=== PATIENT | male | born 1950 | race Caucasian/White ===

== ENCOUNTER → 2020-02-17 09:24 | Outpatient (REF) | payer MEDICARE, OTHER, SELFPAY ==
--- NOTE | 2020-02-17 | NM_ITS ---
Exercise Myocardial perfusion study Indication: Chest pain with multiple risk factors to evaluate for myocardial ischemia Technique: The patient was brought in for an exercise perfusion study on 02/17/2020. Patient performed exercise as per [facility] protocol and was injected 30 mCi of sestamibi was given intravenously one target HR was achieved. Images were obtained using the SPECT gamma camera interlaced with the gating device. Images were obtained in supine position. Resting perfusion study was performed on 02/21/2020. Patient was administered 30 mCi of sestamibi intravenously at rest. Images were then obtained in supine position. Images obtained with and without CT attenuation. Total DLP 65MGY-CM. Images were processed with the software and compared side to side in short axis, horizontal long axis and vertical long axis views. Findings: The stress perfusion study showed non attenuated images show severely reduced uptake in the distal lateral and apical wall of the LV myocardium as well as mildly reduced uptake in the inferior wall of the LV myocardium. Remainder of the LV myocardium is normally perfused. Attenuation corrected images show severely reduced uptake in the apex and distal lateral wall of the LV myocardium. Remainder of the LV myocardium is normally perfused.. The gated study shows normal LV systolic function with calculated LVEF of 54%. LV cavity is mildly to moderately dilated in size. The gated study shows normal wall thickening and contraction of all segments. There is mild transient ischemic dilation. Resting study shows non attenuated images show mildly to moderately reduced uptake in the apex of the LV myocardium. Attenuation corrected images also show mildly to moderately reduced uptake in the distal. Gating at rest reveals normal wall motion with ejection fraction at 53%. The findings are consistent with partially reversible defect of the distal lateral and apical wall of the LV myocardium suggestive of ischemia. NM/NM xochitl perf SPECT rest & str Impression: 1. Apical and distal lateral reversible defect suggestive of ischemia 2. Gated LVEF is 54% with stress and 53% with rest 3. Transient ischemic dilatation present Stress EKG is equivocal for ischemia
--- NOTE | 2020-02-17 10:00 | CA_ITS ---
Acquisition Time: 2020-02-17 10:04:09 Total Exercise Time: 00:04:42 Test Indications: Palpitations Medications: LISINOPRIL HYDRALAZINE ASA LORATADINE TAMSULOSIN MELOXICAM OMEPRAZOLE Protocol: PURVI Max HR: 153 BPM 95% of Pred: 160 BPM Max BP: 162/090 mmHG Max Work Load: 4.6 METS Exercise nuclear stress test using modified Purvi protocol. Pt tolerated well. Denies any anginal sx. quick response to exercise with heart increased rapidly. EKG with occasional PVCs, no ischemic changes noted, however widened QRS. Nuclear images to follow. Normotensive response to exercise. Test reviewed with Dr. Cortés Referred By: Matty Robertson Overread By: Rebeca Zuleta
== END ==
LOC: HO.CARD 09:24
PROVIDERS: Visit Provider Internal Medicine Cardiovascular Disease
DX: R00.2 Palpitations (principal); I10 Essential (primary) hypertension; R07.9 Chest pain, unspecified
CPT/HCPCS: 78452; 93017; A9500

== ENCOUNTER 2020-04-11 11:08 | Outpatient (REF) | payer MEDICARE, OTHER, SELFPAY ==
--- NOTE | 2020-04-11 11:15 | XR_ITS ---
EXAMINATION: XR LUMBOSACRAL SPINE WITH OBLIQUES CLINICAL INFORMATION: Malignant neoplasm of the prostate. Lower back pain. COMPARISON: CT 01/28/2019 TECHNIQUE: AP, both oblique, and lateral views of the lumbar spine. Lateral view of the lumbosacral junction. FINDINGS: There is no acute fracture or subluxation. Grade 1 retrolisthesis of L2 on L3. Vertebral body height and alignment is otherwise maintained. Disc spaces are maintained. Multilevel endplate osteophytes are present. These are bridging at the lower thoracic spine. Mild facet arthropathy. The sacroiliac joints are symmetric. The sacrum appears intact. The bowel gas pattern is unremarkable. No focal osseous lesions are seen. XR/XR lumbar spine 4V min IMPRESSION: No focal osseous lesions are seen. Mild multilevel degenerative changes.
== END 2020-04-11 11:09 | disposition home or self-care (01) ==
LOC: HO.XRAY 11:08
PROVIDERS: PCP Family Medicine; Visit Provider Family Medicine
DX: M54.5 Low back pain (principal); C61 Malignant neoplasm of prostate
CPT/HCPCS: 72110

== ENCOUNTER 2021-05-16 11:00 | Outpatient (RCR) | payer MEDICARE, OTHER, SELFPAY | END 2021-05-16 13:51 | disposition home or self-care (01) | LOC: HO.PT 11:00 | PROVIDERS: PCP Family Medicine; Visit Provider Nurse Practitioner | DX: M54.6 Pain in thoracic spine (principal) | CPT/HCPCS: 97110; 97112; 97150; 97161 ==

== ENCOUNTER → 2021-07-11 09:32 | Outpatient (BNVA) | payer MEDICARE, OTHER, SELFPAY | PROVIDERS: PCP Family Medicine; Referring Provider Family Medicine; Visit Provider Nurse Practitioner Family | DX: Z12.11 Encounter for screening for malignant neoplasm of colon (principal); K59.01 Slow transit constipation; R07.9 Chest pain, unspecified | CPT/HCPCS: 99202 ==

== ENCOUNTER → 2021-08-29 10:24 | Outpatient (BNVA) | payer MEDICARE, SELFPAY | PROVIDERS: PCP Family Medicine; Referring Provider Family Medicine; Visit Provider Nurse Practitioner Family | DX: Z12.11 Encounter for screening for malignant neoplasm of colon (principal); K59.01 Slow transit constipation; R07.9 Chest pain, unspecified | CPT/HCPCS: 99212 ==

== ENCOUNTER 2021-12-20 09:02 | Day surgery (SDC) | payer MEDICARE, OTHER, SELFPAY ==
[2021-12-14 11:04] VITALS: BMI 25.9
[2021-12-20 09:40] VITALS: BP 151/88; PULSE 84; RESP 18; TEMP 36.3; O2SAT 98
[2021-12-20] MEDS: Lactated Ringers 1,000 ML 50 ML IVCONT (09:40)
--- NOTE | 2021-12-20 09:42 | PC.NURSE ---
Patient admitted by Jordan Bermudez RN
--- NOTE | 2021-12-20 09:44 | MHC.SHP ---
Pre-Procedural Eval Section A Date of Service: 12/20/21 Section B Chief Complaint: screening Relevant Family History (Specify if Yes): No Relevant Social History: None Present Medications: see Short Stay Collaborative assessment Medical History: Significant History (HTN) History of Previous Operations: Relevant previous surgery/procedure and date(s) (History of prostate surgery Hx of colonoscopy) Allergies: Allergies Allergy/AdvReac Type Severity Reaction Status Date / Time No Known Allergies Allergy Verified 12/20/21 09:23 [No Known Allergies*] Review of Systems Sugical H&P ROS: Negative: Constitution, Cardiovascular, Respiratory, Neurological, Psychiatric, Hem-Onc, Allergic/Immunologic, Gastrointestinal, Genitourinary, Musculoskeletal, Integumentary, Endocrine and Eyes/Ears/Nose/Throat Exam Surgical H&P Exam: Normal: HEENT, Normal: Heart, Normal: Lungs, Normal: Extremities, Normal: Abdomen, Normal: Skin and Normal: Neurological Plan Diagnosis/Plan: Unchanged I have reviewed the history and physical and performed a pertinent physical examination on my patient. No changes have occurred unless specified.
--- NOTE | 2021-12-20 09:49 | P.OP_ITS ---
Operative Note Operative Note Date of Service: 12/20/21 Narrative: Operative Information Procedure Description: Colonoscopy Indication: screening Anesthesia: MAC COLONOSCOPY Instrument: Olympus variable stiffness pediatric scope 190L Colonoscopy Monitoring: Vital signs and clinical assessment, continuous EKG monitoring, Pulse oximetry, Carbon Dioxide monitoring and blood pressure monitoring were done throughout the procedure. Colon withdrawal time was 7 minutes. Procedure: The patient was placed in the left lateral decubitis position and pre-procedure medications were administered. After a digital rectal examination of the ano-rectum, the video colonoscope was inserted into the rectum and advanced through the colon to the cecum/TI. The colonoscope was slowly withdrawn in a retrograde panoramic fashion and the colon mucosa was carefully examined including a retroflexed view of the rectum. Findings and interventions are described below. Procedure Difficulty: easy Findings: Terminal Ileum-normal Cecum: 6-8 mm sessile polyp removed with cold forceps Ascending Colon: normal Transverse Colon -normal Descending Colon:normal Sigmoid Colon: mild diverticulosis noted Rectum: Retroflexion with moderate sized internal hemorrhoids, grade I, 7-9 mm sessile polyp removed with cold forceps Anorectum - normal Colon preparation: [place] Bowel Preparation Scale Right colon; 2 Transverse colon: 3 Left colon; 3 (0 = Unprepared colon segment with mucosa not seen due to solid stool that cannot be cleared. 1 = Portion of mucosa of the colon segment seen, but other areas of the colon segment not well seen due to staining, residual stool and/or opaque liquid. 2 = Minor amount of residual staining, small fragments of stool and/or opaque liquid, but mucosa of colon segment seen well. 3 = Entire mucosa of colon segment seen well with no residual staining, small fragments of stool or opaque liquid) Impression and Post Procedure Diagnosis: polyps internal hemorrhoids diverticular disease Plan: High fiber diet leaflet Avoid straining at stool, epsom salts and sitz bath, anusol supps or cream Repeat Colonoscopy in 5-7 years if adenomatous polyps, 10 yrs if hyperplastic or earlier if clinically indicated Above findings were reviewed with the patient and relevant handouts were provided if indicated.
--- NOTE | 2021-12-20 09:49 | P.CONAN_ITS ---
HPI - Anesthesia Eval Consult details Narrative: 71yo male patient for colonoscopy ?Abnormal stress test-? Wide QRS 01/2020. Myoperfusion scan 02/14 suggestive of ischemia. Seen 07/17 and referred to cardiology 07/2021 for chest pain. Recommended daily baby aspirin, SL Ntg prn. Saw cardiology again 09/2021 for madhavi arance for colonoscopy- mild tri-op risk. Patient has been stable, asymptomatic with no further chest pain. No further work up recommended at this time by watershed coordinator except for echo in December. [facility] Active Problems Active Problems: H/o Chest pain. Denies CP or SOB today HTN Chronic bilateral thoracic spine pain. Had physical therapy Past Medical History Medical History HTN (hypertension) Family History Family History Father Alzheimer disease Mother Thyroid disease Family history of problems with anesthesia: No Surgical History Surgical History History of prostate surgery Hx of colonoscopy History of Problems with Anesthesia: No Social History Social History Household Members: Spouse Alcohol intake: never Patient Tobacco Use Status: Never used Tobacco Use of substances other than those prescribed or required for medical reasons: No Are you DNR?: No Advance Directives: No Advance Directives Information Provided: Yes Meds Allergies Allergy/AdvReac Type Severity Reaction Status Date / Time No Known Allergies Allergy Verified 12/20/21 09:23 [No Known Allergies*] Active Medications: Current Medications Lactated Ringer's (Lr) 1,000 mls @ 50 mls/hr IVCONT .Q20H [facility] Last Admin: 12/20/21 09:40 Dose: 50 mls/hr Lactated Ringer's (Lr) 1,000 mls @ 50 mls/hr IVCONT .Q20H [facility] Home Medications Medication Instructions Recorded Confirmed Last Taken Type acetaminophen 650 mg 650 mg PO Q12H 07/11/21 12/20/21 Unknown History tablet,extended release diphenhydramine HCl 25 mg capsule 25 mg PO Q6H PRN Inflammation 07/11/21 12/20/21 Unknown History (Benadryl) fluticasone propionate 50 1 spray intranasal DAILY 07/11/21 12/20/2112/19/22 08:30 History mcg/actuation nasal spray,suspension hydrochlorothiazide 25 mg tablet 25 mg PO DAILY 07/11/21 12/20/21 Unknown History multivitamin-ferrous 1 tab PO DAILY 07/11/21 12/20/21 Unknown History fumarate-folic acid 18 mg-400 mcg tablet (Centrum Complete) hydralazine 25 mg tablet 1 tab PO BID 12/14/21 12/20/21 Unknown History aspirin 81 mg chewable tablet 1 tab PO DAILY 12/20/21 12/20/21 Unknown History Exam Exam Date and Time: December 20, 2021 0949 Height,Weight and Vital Signs: Height 5 ft 8 in Weight 77.564 kg Last Vital Signs Temp 97.4 F 12/20/21 09:40 Pulse 84 12/20/21 09:40 Resp 18 12/20/21 09:40 BP 151/88 H 12/20/21 09:40 Pulse Ox 98 12/20/21 09:40 O2 Del Method 12/20/21 09:40 Pertinent Lab Results Pertinent Lab Results: NM/NM xochitl perf SPECT rest & stress(02/17/20) Impression: ? 1.? Apical and distal lateral reversible defect suggestive of ischemia 2.? Gated LVEF is 54% with stress and 53% with rest 3. Transient ischemic dilatation present ? Stress EKG is equivocal for ischemia Narrative Narrative: EKG 10/24/21: NSR 81. LAD. LVH with QRS widening and repolarization abnormality. Cannot rule out septal infarct, age undetermined Airway Mallampati Class: II TM Dist: >3cm Neck ROM: Full Denture: Upper and Lower Heart: RRR Lungs: CTAB Assessment and Plan Assessment Anesthesia Assessment: Anesthesia Plan Discussed and Chart Reviewed Final Anesthetic Review Family History of Problems with Anesthesia: No History of Problems with Anesthesia: No NPO: Yes ASA Class: III Final Preanesthetic Review: No Changes in Pt Med Stat, Meds/Allgs Chart Reviewed, Consent Obtained/Reviewed and Anes Risks/Benef Reviewed Patient Risk: Intermediate Procedure Risk: Low Assessment/Block/Sedation in SS: Assess/Block/Sedation-SS Anesthetic Plan Anesthetic Plan: MAC: Disposition: Standard PACU
[2021-12-20 11:31] VITALS: BP 104/64; PULSE 78; RESP 16; TEMP 36.5; O2SAT 95
[2021-12-20 11:54] VITALS: BP 120/69; PULSE 74; RESP 17; O2SAT 96
[2021-12-20 12:09] VITALS: BP 128/74; PULSE 71; RESP 16; O2SAT 96
--- NOTE | 2021-12-20 12:15 | ECG_ITS ---
Test Reason : POST OP Blood Pressure : / mmHG Vent. Rate : 065 BPM Atrial Rate : 065 BPM P-R Int : 166 ms QRS Dur : 142 ms QT Int : 444 ms P-R-T Axes : 042 -45 070 degrees QTc Int : 461 ms Normal sinus rhythm Left bundle branch block Abnormal ECG When compared with ECG of 26-NOV-2010 07:51, Left bundle branch block is now Present Referred By: Jase Santana Electronically Signed By:BENEDICT HAN
[2021-12-20 12:17] VITALS: TEMP 36.7
== END 2021-12-20 13:03 | disposition home or self-care (01) ==
PROVIDERS: PCP Family Medicine; Visit Provider Internal Medicine Gastroenterology
PROC: 0DJD8ZZ Inspection of Lower Intestinal Tract, Via Natural or Artificial Opening Endoscopic (ICD-10-PCS; CPT 45378; principal; 2021-12-20 10:40)
DX: Z12.11 Encounter for screening for malignant neoplasm of colon (principal); D12.0 Benign neoplasm of cecum; K62.1 Rectal polyp; K57.30 Diverticulosis of large intestine without perforation or abscess without bleeding; K64.0 First degree hemorrhoids; K59.01 Slow transit constipation; I10 Essential (primary) hypertension; R07.9 Chest pain, unspecified; E66.3 Overweight; Z68.26 Body mass index [BMI] 26.0-26.9, adult; E78.5 Hyperlipidemia, unspecified; Z79.899 Other long term (current) drug therapy
CPT/HCPCS: 45380; 88305; 93005

== ENCOUNTER → 2022-01-04 08:26 | Outpatient (BNVA) | payer MEDICARE, OTHER, SELFPAY | PROVIDERS: PCP Family Medicine; Visit Provider Nurse Practitioner Family | DX: K59.04 Chronic idiopathic constipation (principal); D36.9 Benign neoplasm, unspecified site; Z98.890 Other specified postprocedural states | CPT/HCPCS: 99212 ==

== ENCOUNTER → 2022-07-04 08:28 | Outpatient (BNVA) | payer MEDICARE, MEDICAID, SELFPAY | PROVIDERS: PCP Family Medicine; Referring Provider Family Medicine; Visit Provider Nurse Practitioner Family | DX: K59.04 Chronic idiopathic constipation (principal) | CPT/HCPCS: 99212 ==

== ENCOUNTER → 2022-07-31 08:01 | Outpatient (BNVA) | payer MEDICARE, MEDICAID, SELFPAY | PROVIDERS: PCP Family Medicine; Referring Provider Family Medicine; Visit Provider Nurse Practitioner Family | DX: K59.04 Chronic idiopathic constipation (principal) | CPT/HCPCS: 99212 ==

== ENCOUNTER 2022-08-20 13:14 | Outpatient (REF) | payer MEDICARE, MEDICAID, SELFPAY ==
--- NOTE | ~2022-08-20 | XR_ITS ---
EXAMINATION: XR ELBOW, RIGHT CLINICAL INFORMATION: Right elbow pain. COMPARISON: None available. TECHNIQUE: AP, lateral, and oblique views of the right elbow. FINDINGS: No definite acute fracture or dislocation is evident. There is degenerative/dystrophic calcification seen about the medial epicondyle. There is some mild bony spurring about the lateral epicondyle. There appears to be some calcification within the right elbow joint posteriorly with right elbow effusion. There is degenerative change about the radial humeral and ulnar humeral joints as well as some spurring about the radial ulnar joint. Prominent olecranon spur is present. No definite acute fracture is identified. XR/XR elbow RT min 3V IMPRESSION: Degenerative change of the right elbow as described. Right elbow effusion with some calcifications about the dorsum of the humerus which may represent dystrophic calcifications within joint effusion. No definite acute fracture appreciated.
== END 2022-08-20 13:15 | disposition home or self-care (01) ==
LOC: HO.XRAY 13:14
PROVIDERS: PCP Family Medicine; Visit Provider Emergency Medicine
DX: M25.521 Pain in right elbow (principal)
CPT/HCPCS: 73080

== ENCOUNTER → 2022-10-08 09:35 | Outpatient (BNVA) | payer MEDICARE, MEDICAID, SELFPAY | PROVIDERS: PCP Family Medicine; Visit Provider Physician Assistant | DX: M19.021 Primary osteoarthritis, right elbow (principal) | CPT/HCPCS: 99202 ==

== ENCOUNTER 2023-01-07 17:37 | Outpatient (REF) | payer MEDICARE, MEDICAID, SELFPAY ==
[2023-01-07 18:28] LABS: Influenza A PCR NEGATIVE (Negative); Influenza B PCR NEGATIVE (Negative); Resp Syncy Virus RNA Qual PCR NEGATIVE (Negative); SARS COV2 PCR INHOUSE NEGATIVE (Negative)
== END 2023-01-07 17:38 | disposition home or self-care (01) ==
LOC: HO.HHCLNP 17:37
PROVIDERS: Visit Provider Emergency Medicine
DX: J06.9 Acute upper respiratory infection, unspecified (principal); Z20.822 Contact with and (suspected) exposure to COVID-19
CPT/HCPCS: 0241U; 87070

== ENCOUNTER 2023-03-19 10:37 | Outpatient (AMB) | payer MEDICARE, MEDICAID, SELFPAY ==
--- NOTE | 2023-03-19 10:43 | A.OFFVIS_ITS ---
Intake Vital Signs 03/19/23 10:44 Height 5 ft 7 in Weight 171 lb 15.369 oz BMI 26.9 BP 146/81 H Blood Pressure Location Lt brachial Position Sitting Pulse 83 Intake Visit Reasons: 6 month follow up Intake Note: [place] presents in the office as a 6 month follow up. CC: He states that he is not having any concerns at this time. Blackjack Dealer Required: Yes Blackjack Dealer Name: Jennifer Pierce235 Allergies No Known Allergies [No Known Allergies*] Allergy (Verified 03/19/23 10:47) HPI 6 month follow up HPI Details LAST VISIT: Constipation Continue Linzess. Patient was also encouraged to increase activity and fluid intake to promote better bowel motility. I will see him in 6 months, sooner on as needed basis. Patient is agreeable to plan of care and verbalizes understanding of instructions. He was given the opportunity to ask questions and all questions answered. ? Thank you for allowing me to participate in his care Plan Medications Refilled linaclotide (Linzess) 145 mcg PO DAILY 90 caps 2RF TODAY'S VISIT Patient is here today for follow-up. Patient reports that he has been feeling better. Reports that he is moving his bowels, however he reports that after while taking Linzess every day was making him to go to the bathroom several times a day. Patient takes Linzess is every other day. Still has multiple bowel movements when he takes it. Patient currently is 145 mcg daily. Patient denies any melena, hematochezia, unintentional weight loss or ribbon like stools. Patient denies any dyspepsia, dysphagia or odynophagia. Patient denies any abdominal pain or discomfort. Reports to be feeling well otherwise. [facility] Medical History Tubular adenoma HTN (hypertension) Surgical History History of prostate surgery Hx of colonoscopy Family History Father Alzheimer disease Mother Thyroid disease Household Members: Spouse Alcohol intake: never Patient Tobacco Use Status: Never used Tobacco Review of Systems Const Denies weight gain and Denies weight loss ENT Reports no additional complaints, Denies dysphagia and Denies odynophagia Card Reports no additional complaints Resp Reports no additional complaints GI Denies abdominal pain, Denies belching, Denies melena, Denies bloating, Denies change in bowel habits, Denies dysphagia, Denies excessive flatus, Denies dyspepsia, Denies heartburn, Denies diarrhea, Denies loose stools, Denies n ausea, Denies odynophagia and Denies vomiting Reports no additional complaints Musc Reports no additional complaints Neuro Reports no additional complaints Psych Reports no additional complaints Endo Reports no additional complaints Physical Exam Vital Signs: Last Vital Signs Pulse 83 03/19/23 10:44 BP 146/81 H 03/19/23 10:44 BMI result Body Mass Index 26.9 Const General: healthy appearing, no acute distress and well developed Nutritional Appearance: well nourished Orientation/consciousness: patient oriented x3 HEENT Head: Yes normal to inspection, Yes normocephalic and Yes atraumatic Face and sinus: Yes normal facial exam Mouth: Normal oral and palatal mucosa present Throat: Yes posterior oropharynx normal, Yes tonsils normal and Yes uvula midline Eyes General: appearance normal, both eyes and all related structures Neck Neck: Yes normal visual inspection, Yes full ROM and Yes trachea midline Thyroid: Thyroid normal Resp Effort & Inspection: normal respiratory effort, able to speak in complete sentences, no tracheal deviation and symmetric chest movement Auscultation: clear to auscultation bilaterally Cardio Rate: regular rate Heart sounds: S1 normal heart sound present and S2 normal heart sound present GI Inspection: Yes normal to inspection and No distended Palpation (GI): Soft to palpation, not firm, nontender and No hepatosplenomegaly present Auscultation: normal bowel sounds General: Yes no CVA tenderness Back/Spine/Pelvis Back: no CVA tenderness Skin General skin exam: elasticity normal, turgor normal and dry skin Neuro General: patient oriented x3 Psych Appearance: grossly normal Mental Status: mental status grossly normal Assessment & Plan Assessment & Plan (1) Constipation: Code(s): K59.00 - Constipation, unspecified Qualifiers: Constipation type: slow transit constipation Qualified Code(s): K59.01 - Slow transit constipation (2) Abdominal bloating: Code(s): R14.0 - Abdominal distension (gaseous) Plan Will stop Linzess 145 mcg and start 72 mcg daily. Patient was instructed to call the office if this dose will not be effective. Patient will follow-up in our office in 6 months, sooner on as needed basis. Patient is agreeable to this plan and verbalizes understanding of instructions. He was given the opportunity to ask questions and all questions answered. Thank you for allowing me to participate his care Medications: New linaclotide (Linzess) 72 mcg PO DAILY 90 caps 2RF Discontinued linaclotide (Linzess) Discontinued Reason: Doctor's Order 145 mcg PO DAILY 90 caps 2RF Coding Level of Care Code Est Pt Level 3 (58605) Diagnoses Slow transit constipation K59.01 Constipation type: slow transit constipation Abdominal bloating R14.0 Time Spent (min) 25 Comment 15 minutes spent with patient and additional 10 minutes spent reviewing his records
[2023-03-19 10:44] VITALS: BP 146/81; PULSE 83; BMI 26.9
== END 2023-03-19 11:19 | disposition home or self-care (01) ==
PROVIDERS: PCP Family Medicine; Visit Provider Nurse Practitioner Family
DX: K59.01 Slow transit constipation (principal); R14.0 Abdominal distension (gaseous)
CPT/HCPCS: 99213

== ENCOUNTER → 2023-03-19 10:37 | Outpatient (BNVA) | payer MEDICARE, MEDICAID, SELFPAY | PROVIDERS: PCP Family Medicine; Visit Provider Nurse Practitioner Family | DX: K59.01 Slow transit constipation (principal); R14.0 Abdominal distension (gaseous); D12.6 Benign neoplasm of colon, unspecified; I10 Essential (primary) hypertension | CPT/HCPCS: 99212 ==

== ENCOUNTER 2023-07-14 08:26 | Outpatient (REF) | payer MEDICARE, MEDICAID, SELFPAY ==
[2023-07-14 11:48] LABS: Creatinine Urine 194.79 mg/dL; Microalbum/Creatinine Ratio Ur 86.2 ug/mg cr (<30)
[2023-07-14 11:54] LABS: Alanine Aminotransferase 22 U/L (0-40); Alkaline Phosphatase 68 U/L (39-117); Anion Gap 13 (12-20); Aspartate Amino Transferase 24 U/L (5-37); Bilirubin Direct 0.4 mg/dL (0.0-0.5); Bilirubin Total 1.3 mg/dL (0.0-1.0); Blood Urea Nitrogen 17 mg/dL (9-16); Calcium 9.1 mg/dL (8.4-10.2); Carbon Dioxide 30 mmol/L (22-29); Chloride 102 mmol/L (96-108); Cholesterol 163 mg/dL (<200); Estimated Glomerular Filt Rate > 60; Glucose Random 131 mg/dL (60-115); HDL Cholesterol 46 mg/dL (>40); LDL Cholesterol Calculated 98 mg/dL (<100); Sodium 141 mmol/L (135-145); Total Protein 7.2 g/dL (6.5-8.0); Triglycerides 98 mg/dL (<150)
== END 2023-07-14 08:27 | disposition home or self-care (01) ==
LOC: HO.HHCL 08:26
PROVIDERS: Visit Provider Family Medicine
DX: I10 Essential (primary) hypertension (principal)
CPT/HCPCS: 36415; 80048; 80061; 80076; 82043; 82570

== ENCOUNTER 2023-09-17 10:59 | Outpatient (AMB) | payer MEDICARE, MEDICAID, SELFPAY ==
--- NOTE | 2023-09-17 11:16 | MHC.OFFVIS ---
Vital Signs 09/17/23 11:24 Height 5 ft 7 in Weight 165 lb 5.547 oz BMI 25.9 BP 144/67 H Blood Pressure Location Lt brachial Position Sitting Pulse 78 Intake Visit Reasons: 6 month follow up Intake Note: Patient is seen in office for 6 month follow up visit, following abdominal bloating. Pt c/o: per pt he is here for constipation, states he takes Linzess in the morning and is able to have a bm, denies any concerns at the time of visit or GI symptoms Services Clerk Required: Yes Services Clerk Language: Maltese Information Interpreted: non-clinical & clinical Accompanied by: Self / Same As Patient Allergies No Known Allergies [No Known Allergies*] Allergy (Verified 03/19/23 10:47) HPI HPI 6 month follow up: Details: LAST VISIT: Constipation Abdominal bloating Plan Will stop Linzess 145 mcg and start 72 mcg daily. Patient was instructed to call the office if this dose will not be effective. Patient will follow-up in our office in 6 months, sooner on as needed basis. Patient is agreeable to this plan and verbalizes understanding of instructions. He was given the opportunity to ask questions and all questions answered. ? Thank you for allowing me to participate his care Medications New linaclotide (Linzess) 72 mcg PO DAILY 90 caps 2RF Discontinued linaclotide (Linzess) Discontinued Reason: Doctor's Order 145 mcg PO DAILY 90 caps 2RF TODAY'S VISIT: Patient is here today for follow-up. Patient reports that he is taking Linzess 72 mcg and is moving his bowels, however he was moving his bowels better when he was taking 145 mcg daily. Patient states that he is drinking plenty fluids. Last colonoscopy in 2021 showed tubular adenoma and repeat colo in 5 years. Patient denies any other GI concerning symptoms. [facility] Medical History Tubular adenoma HTN (hypertension) Surgical History History of prostate surgery Hx of colonoscopy Family History Father Alzheimer disease Mother Thyroid disease Social History Household Members: Spouse Alcohol intake: never Patient Tobacco Use Status: Never used Tobacco Review of Systems Const Denies weight gain and Denies weight loss ENT Reports no additional complaints, Denies dysphagia and Denies odynophagia Card Reports no additional complaints Resp Reports no additional complaints GI Denies abdominal pain, Denies belching, Denies melena, Denies bloating, Denies change in bowel habits, Denies dysphagia, Denies excessive flatus, Denies dyspepsia, Denies heartburn, Denies diarrhea, Denies loose stools, Denies nausea, Denies odynophagia and Denies vomiting Reports no additional complaints Musc Reports no additional complaints Neuro Reports no additional complaints Psych Reports no additional complaints Endo Reports no additional complaints Physical Exam Vital Signs: Last Vital Signs Pulse 78 09/17/23 11:24 BP 144/67 H 09/17/23 11:24 BMI result Body Mass Index 25.9 Const General: healthy appearing, no acute distress and well developed Nutritional Appearance: well nourished Orientation/consciousness: patient oriented x3 Resp Effort & Inspection: normal respiratory effort, able to speak in complete sentences, no tracheal deviation and symmetric chest movement Auscultation: clear to auscultation bilaterally Cardio Rate: regular rate GI Inspection: Yes normal to inspection and No distended Palpation (GI): Soft to palpation, not firm, nontender and No hepatosplenomegaly present Auscultation: normal bowel sounds General: Yes no CVA tenderness Back/Spine/Pelvis Back: no CVA tenderness Skin General skin exam: elasticity normal, turgor normal and dry skin Neuro General: patient oriented x3 Psych Appearance: grossly normal Mental Status: mental status grossly normal Assessment & Plan Assessment & Plan (1) Constipation: Code(s): K59.00 - Constipation, unspecified Qualifiers: Constipation type: chronic idiopathic constipation Qualified Code(s): K59.04 - Chronic idiopathic constipation (2) Abdominal bloating: Code(s): R14.0 - Abdominal distension (gaseous) Plan Reports symptoms are much better with Linzess, however would like to go back to the higher dose if possible. Continue Linzess 145 mcg daily. Increase fluid intake and activity to promote better bowel motility. Patient will return in the office in 1 year, however he will call if he will have any GI concerning symptoms. He is agreeable to this plan and verbalizes understanding of instructions. He was given the opportunity to ask questions and all questions answered. Thank you for allowing me to participate in his care Medications: New Linzess (linaclotide) 145 mcg PO DAILY 90 caps 4RF NS K59.04 - Chronic idiopathic constipation Discontinued linaclotide Discontinued Reason: Doctor's Order 72 mcg PO DAILY 90 caps 2RF Coding Level of Care Code Est Pt Level 3 (89099) Diagnoses Chronic idiopathic constipation K59.04 Constipation type: chronic idiopathic constipation Abdominal bloating R14.0 Time Spent (min) 25 Comment 15 minutes spent with patient and additional 10 minutes spent reviewing his records
[2023-09-17 11:24] VITALS: BP 144/67; PULSE 78; BMI 25.9
== END 2023-09-17 11:51 | disposition home or self-care (01) ==
PROVIDERS: PCP Family Medicine; Visit Provider Nurse Practitioner Family
DX: K59.04 Chronic idiopathic constipation (principal); R14.0 Abdominal distension (gaseous)
CPT/HCPCS: 99213

== ENCOUNTER → 2023-09-17 10:59 | Outpatient (BNVA) | payer MEDICARE, MEDICAID, SELFPAY | PROVIDERS: PCP Family Medicine; Visit Provider Nurse Practitioner Family | DX: R14.0 Abdominal distension (gaseous) (principal); K59.04 Chronic idiopathic constipation | CPT/HCPCS: 99212 ==

== ENCOUNTER 2024-03-17 08:01 | Outpatient (REF) | payer MEDICARE, MEDICAID, SELFPAY ==
[2024-03-17 11:53] LABS: Estimated Average Glucose 128 mg/dL; Hemoglobin A1C 165.3329 umol/L; Hemoglobin A1c % 6.1 % (<6.0); Total Hemoglobin (HGBA1C) 3791.1163 umol/L
[2024-03-17 11:55] LABS: Rheumatoid Factor 42.2 IU/mL (<15.0)
[2024-03-17 12:07] LABS: Alanine Aminotransferase 45 U/L (0-40); Albumin Level 4.1 g/dL (3.5-5.0); Alkaline Phosphatase 81 U/L (39-117); Anion Gap 11 (12-20); Aspartate Amino Transferase 35 U/L (5-37); Bilirubin Direct 0.4 mg/dL (0.0-0.5); Bilirubin Total 1.3 mg/dL (0.0-1.0); Blood Urea Nitrogen 13 mg/dL (9-16); C Reactive Protein 0.32 mg/dL (< or = 0.50); Calcium 9.3 mg/dL (8.4-10.2); Carbon Dioxide 34 mmol/L (22-29); Chloride 100 mmol/L (96-108); Cholesterol 102 mg/dL (<200); Estimated Glomerular Filt Rate > 60; Glucose Random 139 mg/dL (60-115); HDL Cholesterol 42 mg/dL (>40); LDL Cholesterol Calculated 40 mg/dL (<100); Potassium 3.8 mmol/L (3.3-5.1); Sodium 141 mmol/L (135-145); Total Protein 7.3 g/dL (6.5-8.0); Triglycerides 104 mg/dL (<150)
[2024-03-17 12:23] LABS: Erythrocyte Sedimentation Rate 16 MM/HR (0-15)
[2024-03-17 12:28] LABS: Vitamin D 25-OH Total 22.2 ng/mL (>30)
[2024-03-22 14:24] LABS: Anti Nuclear Antibody Screen NEGATIVE (NEGATIVE)
== END 2024-03-17 08:02 | disposition home or self-care (01) ==
LOC: HO.HHCL 08:01
PROVIDERS: Visit Provider Family Medicine
DX: R52 Pain, unspecified (principal); I10 Essential (primary) hypertension; R73.9 Hyperglycemia, unspecified; Z83.49 Family history of other endocrine, nutritional and metabolic diseases
CPT/HCPCS: 36415; 80048; 80061; 80076; 82306; 83036; 84443; 85652; 86038; 86140; 86431

== ENCOUNTER 2024-03-17 10:30 | Outpatient (REF) | payer MEDICARE, MEDICAID, SELFPAY | END 2024-03-17 10:31 | disposition home or self-care (01) | LOC: HO.HHCL 10:30 | PROVIDERS: Visit Provider Family Medicine | DX: R80.9 Proteinuria, unspecified (principal) | CPT/HCPCS: 82043; 82570 ==

== ENCOUNTER 2024-03-30 09:52 | Outpatient (REF) | payer MEDICARE, MEDICAID, SELFPAY ==
[2024-03-30 11:49] LABS: Estimated Average Glucose 131 mg/dL; Hemoglobin A1C 165.5859 umol/L; Hemoglobin A1c % 6.2 % (<6.0); Total Hemoglobin (HGBA1C) 3729.0214 umol/L
== END 2024-03-30 09:53 | disposition home or self-care (01) ==
LOC: HO.HHCL 09:52
PROVIDERS: Visit Provider Internal Medicine Cardiovascular Disease
DX: Z13.1 Encounter for screening for diabetes mellitus (principal); E66.3 Overweight
CPT/HCPCS: 36415; 83036

== ENCOUNTER 2024-06-02 06:58 | Emergency (ER) | payer MEDICARE, MEDICAID, SELFPAY ==
--- NOTE | ~2024-06-02 | XR_ITS ---
EXAMINATION: XR CHEST CLINICAL INFORMATION: weak/unsteady COMPARISON: None available. TECHNIQUE: Frontal view of the chest was obtained. FINDINGS: The lungs are expanded and clear acute process. The heart size and pulmonary vascularity is normal. There is moderate spondylosis dorsal spine. No aggressive lytic or sclerotic process seen. XR/XR chest 1V IMPRESSION: No acute cardiopulmonary process seen. Electronically signed by: Diego Ferreira MD 06/02/2024 08:55 AM [facility]
--- NOTE | ~2024-06-02 | CT_ITS ---
EXAMINATION: CT HEAD WITHOUT CONTRAST CLINICAL INFORMATION: Weakness, unsteady gait since Friday. 74-year-old male. COMPARISON: None available. TECHNIQUE: Contiguous axial imaging was performed from the skull base to vertex without intravenous administration of contrast. This CT examination was performed using dose optimization techniques as appropriate, variously including the following: *Automated exposure control *Adjustment of mA and/or kV according to patient size (this includes techniques or standardized protocols for targeted exams where dose is matched to indication/reason for exam; i.e. extremities or head) *Use of iterative reconstruction technique FINDINGS: There is no evidence of intracranial hemorrhage or extra-axial fluid collection. There is no mass effect, or edema. No CT evidence of acute territorial infarct. Ventricles, sulci, and cisterns are normal in size and configuration for patient age. No hydrocephalus. No midline shift. Negative insular ribbon sign. Negative hyperdense MCA sign. There are mild patchy foci of supratentorial white matter hypoattenuation, in keeping with small vessel ischemic changes. Normal sella. Mild atheromatous calcification of the bilateral carotid siphons. Globes and orbital contents image normally. No extracranial soft tissue abnormalities. The paranasal sinuses, mastoid air cells, and tympanic cavities are normally aerated. No suspicious bony abnormalities. CT/CT head/brain wo IV con IMPRESSION: No acute intracranial abnormality.. Electronically signed by: Gray Zaragoza MD 06/02/2024 09:23 AM [facility]
[2024-06-02 07:08] VITALS: BP 137/67; PULSE 84; RESP 20; TEMP 36.1; O2SAT 97; BMI 26.8
--- OUTSIDE RECORDS SUMMARY | 2024-06-02 07:41 | XMS_ITS | Encounter Summary ---
Author Organization [employer] Address [address] [place] [address] Care Team Providers Care Investigation Lieutenant Name Role Phone Marga Snider MD Primary Care Provider [phone] Matty Robertson MD Unavailable [phone] Reason for Visit * Reason Comments Dizziness Encounter Details Date Type Department Care Team ([facility] st Contact Info) Description 06/01/2024 11:00 AM EST Office Visit [facility] [address] [place], [place] [phone] Patrick Sorto MD [address] [place], [place] [phone] Balance disorder (Primary Dx) Social History Tobacco Use Types Packs/Day Years Used Date Smoking Tobacco: Never Smokeless Tobacco: Never Alcohol Use Standard Drinks/Week Comments Not Currently 1 (1 standard drink = 0.6 oz pur e alcohol) Occassionally Depression Answer Date Recorded Patient Health Questionnaire-9 Score 0 02/26/2024 Patient Health Questionnaire-9 Score 0 02/26/2024 Last PHQ-9: Questionnaire Data Not on file 1 Housing Stability Answer Date Recorded What is your housing situation today? I am not s ure 02/11/[address] you li ve. Do you have problems with any of the following? None of the above 02/11/2023 Food Insecurity Answer Date Recorded Within the past 12 months, y ou worried that your food would run out before you got money to buy more: Never True 02/11/2023 Within the past 12 months,th e food you bought just didn't last and you didn't have enough money to get more: Never True Transportation Answer Date Recorded In the past 12 months, has l ack of transportation kept you from medical appts, meetings, work or from getting things needed for daily living? No 02/11/2023 Utilities Answer Date Recorded In the past 12 months, has t he electric, gas, oil or water company threatened to shut off services in your home? No 02/11/2023 Depression Answer Date Recorded Patient Health Questionnaire-2 Score 0 02/26/2024 Sex and Gender Information Value Date Recorded Sex Assigned at Male 02/25/2022 10:15 AM EDT Legal Sex Male 10:15 AM EDT Gender Identity Male 02/25/2022 10:15 AM EDT Sexual Orientation Straight 02/25/2022 10 :15 AM EDT documented as of this encounter Last Filed Vital Signs Vital Sign Reading Time Taken Comments Blood Pressure 145/80 06/01/2024 11:11 AM EST Pulse 76 06/01/2024 11:11 AM EST Temperature 36.2 ??C (97.2 ??F) 06/01/2024 11:[address] Respiratory Rate 21 06/01/2024 11:11 AM EST Oxygen Saturation 98% 06/01/2024 11:11 AM EST Inhaled Oxygen Concentration - - Weight 76.5 kg (168 lb 9 oz) 06/01/2024 11:11 AM EST Height 170.2 cm (5' 7 ) 06/01/2024 11:11 AM EST Body Mass Index 26.4 06/01/2024 11:11 AM EST documented in this encounter Progress Notes * Patrick Sorto MD - 06/01/2024 11:00 AM EST Subjective Patient ID: Theo Benson is a 74 y.o. male. 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 Since then he has felt off balance when standing and walking, is careful to avoid falling. No fever, headache, n/v/d, URI sx. Lives with . Never smoked. No EtOH in 6 months. Patient Active Problem List Diagnosis Moderate episode of recurrent major depressive disorder (CMS/HCC) History of prostate cancer Chronic thoracic back pain Erectile dysfunction Essential hypertension Low left ventricular ejection fraction Multiple vessel coronary artery disease Tubular adenoma Other irritable bowel syndrome Osteoarthritis of elbow Anxiety Other specified health status Family history of thyroid disease Total body pain Microalbuminuria Blood glucose elevated The following portions of the chart were reviewed this encounter and updated as appropriate: Tobacco Allergies Meds Problems Med Hx Surg Hx Fam Hx Review of Systems Constitutional: Negative for fever. Respiratory: Negative for shortness of breath. Cardiovascular: Negative for chest pain. Gastrointestinal: Negative for abdominal pain. Skin: Negative for rash. Neurological: Positive for dizziness. Negative for headaches. Objective Physical Exam Constitutional: Appearance: Normal appearance. HENT: Right Ear: Tympanic membrane, ear canal and external ear normal. Left Ear: Tympanic membrane, ear canal and external ear normal. Nose: Nose normal. Mouth/Throat: Mouth: Mucous membranes are moist. Pharynx: Oropharynx is clear. Eyes: Conjunctiva/sclera: Conjunctivae normal. Pupils: Pupils are equal, round, and reactive to light. Cardiovascular: Rate and Rhythm: Normal rate and regular rhythm. Heart sounds: No murmur heard. Pulmonary: Effort: Pulmonary effort is normal. Breath sounds: Normal breath sounds. Musculoskeletal: General: Normal range of motion. Cervical back: No tenderness. Skin: Findings: No rash. Neurological: Mental Status: He is alert. Cranial Nerves: Cranial nerves 2-12 are intact. Sensory: Sensation is intact. Motor: Motor function is intact. No pronator drift. Coordination: Romberg sign positive. Xdzkeo-Dblc-Degsnh Test normal. Gait: Gait abnormal and tandem walk abnormal. Comments: + off balance when walking Psychiatric: Mood and Affect: Mood normal. Behavior: Behavior normal. Procedures Assessment/Plan Diagnoses and all orders for this visit: Balance disorder ? Etiology. Acute onset. Given cane to help balance. Referred to ED now for further evaluation. documented in this encounter Plan of Treatment Not on file documented as of this encounter Goals Goal Patient Goal Type Associated Problems Recent Progress Patient-Stated? Author Blood Pressure < 140/90 Blood Pressure 145/80( 025 11:11 AM EST) No Madelyn Mcleod PharmD documented as of this encounter Visit Diagnoses Diagnosis Balance disorder- Primary documented in this encounter Additional Health Concerns Assessment Noted Time PHQ-9 Depression Total Score: 0 02/26/20 24 9:42 AM EDT documented as of this encounter Care Teams Investigation Lieutenant Relationship Specialty Start Date End Date Marga Snider MD [address] [place] [address] PCP - General Family Medicine 12/11/16 Matty Robertson MD [address] [place] [address] Cardiology 03/23/24 documented as of this encounter
--- OUTSIDE RECORDS SUMMARY | 2024-06-02 07:41 | XMS_ITS | Encounter Summary ---
Author Organization [employer] Address [address] [place] [address] Care Team Providers Care Recruiter Account Manager Name Role Phone Marga Snider MD Primary Care Provider [phone] Madelyn Berry PharmD Unavailable [phone] Matty Robertson MD Unavailable [phone] Reason for Visit * Reason Onset Date Comments Nurse Triage 05/23/2023 Encounter Details Date Type Department Care Team (Late st Contact Info) Description 05/23/2023 Telephone [facility] [address] [place] [address] Marga Snider MD [address] [place], [place] [phone] Nurse Triage Social History Tobacco Use Types Packs/Day Years Used Date Smoking Tobacco: Never Smokeless Tobacco: Never Alcohol Use Standard Drinks/Week Comments Yes 1 (1 standard drink = 0.6 oz pur e alcohol) Occassionally Depression Answer Date Recorded Patient Health Questionnaire-9 Score 15 05/23/2023 Patient Health Questionnaire-9 Score 15 05/23/2023 Last PHQ-9: Questionnaire Data Not on file 0 05/23/2023 Housing Stability Answer Date Recorded What is [...] Answer Date Recorded Patient Health Questionnaire-2 Score 4 05/23/2023 Sex and Gender Information Value Date Recorded Sex Assigned at Male 02/25/2022 10:15 AM EDT Legal Sex Male 10:15 AM EDT Gender Identity Male 02/25/2022 10:15 AM EDT Sexual Orientation Straight 02/25/2022 10 :15 AM EDT documented as of this encounter Miscellaneous Notes * Telephone Encounter - Mikael Gasca - 05/23/2023 5:18 PM EST Be completed Patient agreed to referral for OP services, referral has been submitted. * Telephone Encounter - Renetta Veronica RN - 05/23/2023 1:05 PM EST Called pt. [employer] [phone] Deepika. Pt. States that he has been not feeling well. Pt. Is not sleeping well at night and wakes up frequently thinking that something is going to happen to him and his . It is giving him anxiety. Pt. States that he does not feel safe in his apartment. He states that people come to his apartment at night and press the doorbell and it is starting toscare him. Pt. States he does not want to move but he wants to talk with his PCP about his new fears and it is causing him depression. Pt. States that he lives on the first floor with big windows andhe is afraid that people are going to break his windows and break into his house. Pt. Doesn't want to move from apartment but he feels that he needs to talk with a counselor to alleviate his fears and anxiety sx. Pt. Denies any sx. Of harming himself and denies suicidal thoughts. Pt. Wants someone from [facility] to reach out so that he can see a psychiatrist and establish care with Psychiatry due to his anxiety. Will forward this message. Protocol Used: Anxiety and Panic Attack (Adult) Protocol-Based Disposition: See in Office or Video Visit within 3 Days Video visit not offered Positive Triage Questions: * Moderate anxiety (e.g., persistent or frequent anxiety symptoms; interferes with sleep, school, or work) * Anxiety symptoms and has not been evaluated for this by doctor (or THERAPIST'S ASSISTANT/PA) * Panic attacks are increasing in frequency * Symptoms of anxiety or panic attack and is a chronic symptom (recurrent or ongoing AND present > 4 weeks) * All higher-acuity triage questions were negative Care Advice Discussed: * Reassurance and Education - Anxiety * Stress Reduction * Telephone Encounter - Nik Davis - 05/23/2023 12:19 PM EST Symptoms: Lethargic (Tired), Depression Outcome: Schedule an urgent appointment (within 4 hours) or talk to a nurse or provider soon Reason: Getting worse The caller accepted this outcome Patient speaks welsh documented in this encounter Plan of Treatment Not on file documented as of this encounter Goals Goal Patient Goal Type Associated Problems Recent Progress Patient-Stated? Author Blood Pressure < 140/90 Blood Pressure 145/80( 025 11:11 AM EST) No Madelyn Mcleod PharmD documented as of this encounter Visit Diagnoses Not on filedocumented in this encounter Additional Health Concerns Assessment Noted Time PHQ-9 Depression Total Score: 15 024 3:23 PM EST documented as of this encounter Care Teams Recruiter Account Manager Relationship Specialty Start Date End Date Marga Snider MD [address] [place] [address] PCP - General Family Medicine 12/11/16 Madelyn Berry PharmD [address] [place] [address] Pharmacist Internal Medicine 02/27/23 09/16/23 Matty Robertson MD [address] [place] [address] Cardiology 03/23/24 documented as of this encounter
--- OUTSIDE RECORDS SUMMARY | 2024-06-02 07:41 | XMS_ITS | Clinical Summary ---
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 hydrALAZINE (Apresoline) 25 MG tablet Take 25 mg by mouth 2 times daily. 2 Active fluticasone (Flonase) 50 MCG/ACT nasal sprayIndications: Allergic rhinitis, unspecified seasonality, unspecified trigger INSTILL 1 SPRAY IN EACH NOSTRIL ONCE DAILY 16 g 2 4 Active Linzess 145 MCG capsuleIndication s:Other irritable bowel syndrome Take 145 mcg by mouth Once per day. 4 Active atorvastatin (Lipitor) 40 MG tabletIndications :Multiple vessel coronary artery disease Take 1 tablet (40 mg) by mouth Once per day. 30 tablet 11 4 02/26/20 25 Active aspirin 81 MG EC tabletIndications :Essential hypertension Take 81 mg by mouth Once per day. Active hydroCHLOROthiazi de (HYDRODiuril) 25 MG tabletIndications :Essential hypertension Take 25 mg by mouth Once per day. Active hydrALAZINE (Apresoline) 25 MG tabletIndications :Essential hypertension Take by mouth 2 times daily. Per cardiology Active Active Problems Patient Care Coordination No te Formatting of this note migh t be different from the original. Enrolled in [facility] HTN clinic with Chika HeinD, CDCES Problem Noted Date Diagnosed Date Family history of thyroid disease 02/26/2024 Overview (02/26/2024): Strong family hx of thyroid disease, including all his siblings and his mother. -ordered TSH 02/26/24 Assessment & Plan (02/26/2024 9:28 AM EDT): Strong family hx of thyroid disease, including all his siblings and his mother. -ordered TSH 02/26/24 Total body pain 02/26/2024 Overview (02/26/2024): Reports total body pain. No localized pain. Denies fevers, zia loss or appetite changes. Strong FHx of thyroid disease. -ordered TSH, STEFANO screen, Rheumatoid factor, Sed rate, CRP and Vit D 02/25/24 Assessment & Plan (02/26/2024 9:39 AM EDT): Reports total body pain. No localized pain. Denies fevers, zia loss or appetite changes. Strong FHx of thyroid disease. -ordered TSH, STEFANO screen, Rheumatoid factor, Sed rate, CRP and Vit D 02/25/24 Microalbuminuria 02/26/2024 Overview (02/26/2024): Lab Results Component Value Date CREATININE 0.78 07/14/2023 EGFR >60 07/14/2023 MICROALBCREU 86.2 (H) 07/14/2023 LDLCHOLCAL 98 07/14/2023 -ordered Albumin/Cr 02/25/24 Assessment & Plan (02/26/2024 9:45 AM EDT): Lab Results Component Value Date CREATININE 0.78 07/14/2023 EGFR >60 07/14/2023 MICROALBCREU 86.2 (H) 07/14/2023 LDLCHOLCAL 98 07/14/2023 -ordered Albumin/Cr 02/25/24 Blood glucose elevated 02/26/2024 Overview (02/26/2024): Lab Results Component Value Date HGBA1C 5.7 (H) 10/17/2022 GLUCOSE 131 (H) 07/14/2023 -ordered A1C 02/25/24 Assessment & Plan (02/26/2024 9:53 AM EDT): Lab Results Component Value Date HGBA1C 5.7 (H) 10/17/2022 GLUCOSE 131 (H) 07/14/2023 -ordered A1C 02/25/24 Other specified health status 02/03/2023 Overview (02/26/2024): -next comprehensive annual evaluation due after 07/02/2024 -eye care facilitated by [facility] -dental home is [facility] -health care proxy filed 02/25/24 -spirometry 12/15/23 normal FEV1/FVC 0.74 -normal ABIs 12/15/23 left 1.31, right 1.33 Assessment & Plan (02/26/2024 9:48 AM EDT): -next comprehensive annual evaluation due after 07/02/2024 -eye care facilitated by [facility] -dental home is [facility] -health care proxy filed 02/25/24 -spirometry 12/15/23 normal FEV1/FVC 0.74 -normal ABIs 12/15/23 left 1.31, right 1.33 Assessment & Plan (07/03/2023 11:58 AM EST): -next physical exam due after 07/02/2024 -eye care facilitated by [facility] -dental home is [facility] Anxiety 10/23/2022 Assessment & Plan (02/26/2024 1:46 PM EDT): During IBH Consult Peruvian presenting with excessive worry/anxiety and anxiety/worry associated to easily fatigued , difficulty concentrating and/or mind going blank , and irritability; for a period of 6-12 mo, for most or all symptoms in the context of unable to identify significant stressors. Peruvian reported experiencing anxiety but able to manage symptoms. His strong sense of keisha and community he has found in the taoism is main strength. His sense of belonging (God/Rastafarian taoism) is main motivation and value. Pt reports receiving positive support from his . We discussed the importance of having a plan for when the bad days come to stay and importance of reaching out to others seeking for additional support. clinician engage patient with active/reflective listening. Reviewed and assessed for risk, current stressors and protective factors. Pt practiced breathing exercises during sessions. clinician will provide follow-up to assess sxs and provide additional support. Assessment & Plan (10/23/2022 2:10 PM EDT): Assessment: Patient with feeling anxious, unable to stop worrying and worrying about many things, irritability, and feeling as something awful might happen in the context of his medical health and personal stressors. Patient declined referral to OP therapy. Patient reported he'd prefer to address anxiety with medication at this time. At this time Theo Calderon meets criteria for Visit Diagnoses: Problem List Items Addressed This Visit Other Anxiety Patient ready to address current needs: Yes via medication Strengths include: not able to identify PLAN: 1. Follow up with [facility]: Not recommended for follow-up 2. Patient goal is to manage anxiety with medication 3. Behavioral Recommendations a. Patient will comply with medication b. Patient may utilize coping techniques discussed during encounter (copy of sheet provided) c. Patient may request to speak with a [facility] during next visit, if needed Osteoarthritis of elbow 10/16/2022 Overview (07/03/2023): X-ray of right elbow ordered by Dr Sorto showed degenerated changes. -Referred to orthopedic surgery. -Seen 10/08/2022 by the orthopedic surgeons and prescribed diclofenac 75mg BID. -Seen Dr. Estrada 10/15/2022. Assessment & Plan (07/03/2023 11:56 AM EST): X-ray of right elbow ordered by Dr Sorto showed degenerated changes. -Referred to orthopedic surgery. -Seen 10/08/2022 by the orthopedic surgeons and prescribed diclofenac 75mg BID. -Seen Dr. Estrada 10/15/2022. Assessment & Plan (10/16/2022 11:43 AM EDT): X-ray of right elbow ordered by Dr Sorto showed degenerated changes. -Referred to orthopedic surgery. -Seen 10/08/2022 by the orthopedic surgeons and prescribed diclofenac 75mg BID. -Seen Dr. Estrada 10/15/2022. Other irritable bowel syndrome 07/10/2022 Overview (02/26/2024): -continue Linzess 145 mg Assessment & Plan (02/26/2024 9:39 AM EDT): -continue Linzess 145 mg Tubular adenoma 07/08/2022 Overview (02/26/2024): Repeat cololoscopy done with Dr. Packer 12/31/2021 showed tubular adenoma next due in 5 years. Assessment & Plan (07/03/2023 11:56 AM EST): Repeat cololoscopy done with Dr. Packer 12/31/2021 showed tubular adenoma next due in 5 years. Assessment & Plan (10/16/2022 9:54 AM EDT): Repeat cololoscopy done with Dr. Packer 12/31/2021 showed tubular adenoma next due in 5 years. Assessment & Plan (07/08/2022 11:44 AM EDT): Repeat cololoscopy done with Dr. Packer 12/31/2021 showed tubular adenoma next due in 5 years. Low left ventricular ejection fraction Overview (02/26/2024): Echo done on 08/2017. -EF from 50-55%. -Euvolemic on exam. Assessment & Plan (07/03/2023 11:55 AM EST): Echo done on 08/2017. -EF from 50-55%. -Euvolemic on exam. Assessment & Plan (10/16/2022 9:53 AM EDT): Echo done on 08/2017. -EF from 50-55%. -Euvolemic on exam. Assessment & Plan (07/08/2022 11:44 AM EDT): Echo done on 08/2017. -EF from 50-55%. -Euvolemic on exam. Moderate episode of recurrent major depressive d isorder 06/07/2021 Overview (02/26/2024): - Anxiety is increasing. Denies suicidial or homacidial ideation. - Pt self d/c fluoxetine - Self Discontinued Lexapro in 2022 -pt agrees to therapy, seen by to behavioral health 02/26/24 Assessment & Plan (02/26/2024 9:46 AM EDT): - Anxiety is increasing. Denies suicidial or homacidial ideation. - Pt self d/c fluoxetine - Self Discontinued Lexapro in 2022 -pt agrees to therapy, seen by to behavioral health 02/26/24 Assessment & Plan (07/03/2023 12:09 PM EST): - Doing well. Pt self d/c fluoxetine - Patient declined counseling. - Self Discontinued Lexapro in 2022 Assessment & Plan (05/23/2023 5:09 PM EST): PROGRESS NOTE: ID: Peruvian is a 73 y.o. Decline to answer straight-identified cis-male (pronouns he/him/his) with previous documented hx of Depression and Anxiety services including OP Psychotherapy psychopharmacology who presents for Anxiety and Depression During IBH Consult Peruvian presenting with depressed mood, loss of interests/pleasure , changes in sleep difficulty falling asleep and difficulty staying asleep , change in appetite or weight reduce appetite and unintentional weight loss , psychomotor agitation, trouble concentrating, fatigue/loss of energy, worthlessness and excessive worry/anxiety, difficulty controlling worry, restless/keyed up/On edge, easily fatigued, difficulty concentrating/Mind going blank , irritability, muscle tension, and sleep disturbance difficulty falling asleep and difficulty staying asleep ; for a period of 0-6 mo, for all symptoms in the context of not feeling safe at his house. PLAN: New/Additional Services needed Off-site services for Behavioral Health Integration Plan External OP therapy referral and OP psychiatry Referral Patient Self Plan Patient to utilize skills provided in intervention , [facility], and Patient to reach out to [facility] as needed Assessment & Plan (10/16/2022 11:47 AM EDT): - Doing well. Pt self d/c fluoxetine - Patient declined counseling. - Increase Lexapro to 20mg daily. Assessment & Plan (07/08/2022 11:43 AM EDT): - Doing well. Pt self d/c fluoxetine - Patient declined counseling. History of prostate cancer 06/07/2021 Overview (01/02/2024): Prostate cancer diagnosed on 10/15/18. - PSA on 08/2018 was 6% % free was 15. Prior to prostatectomy. 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 -Followed by urology, Forest Haas -PSA 03/2020 undetectable -Urology note from 11/2020 states PSA undetectable, lab result requested 04/05/2021 -s/p LHRH injection 10/16/[address] Adan. -Pt transferred to [facility] urology with Dr. Haas. visit with Dr. Haas was on 11/04/2018 -pt elected for prostatectomy 01/26/19 BONE SCAN 11/27/18 In the head, no significant abnormalities are present.In the thoracic cage and upper extremities, there is mildly increased activity in the acromioclavicular joints bilaterally and minimally in the sternoclavicular joints bilaterally. There is a faint focus of increased activity in the posterior aspect of the left ninth rib and a faint linear focus of increased activity is present in the anterolateral aspect of the right sixth rib.In the spine, no significant abnormalities are present.In the pelvis, there is minimally increased activity in the superior lip of the left acetabulum.In the lower extremities, there is mildly increased activity in the patellar compartments of both knees and in a faint focus in the posterior plantar surface of the left calcaneus, probably related to a plantar fasciitis. -urology note 12/30/23 PSA ordered, PSA 0.2 , recheck in 6 months, if rises consider for radiation fo the pelvic fossa. PSMA PET scan if PSA above 1.4. follow up Dr. Haas in 6 months Assessment & Plan (07/03/2023 11:54 AM EST): Prostate cancer diagnosed on 10/15/18. - PSA on 08/2018 was 6% % free was 15. Prior to prostatectomy. 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 -[facility] by [facility] -PSA 08/2018 6.0 down from 8.0 -PSA 03/2020 undetectable -Urology note from 11/2020 states PSA undetectable, lab result requested 04/05/2021 -s/p LHRH injection 10/16/[address] Adan. -Pt transferred to [facility] with Dr. Haas. visit with Dr. Haas was on 11/04/2018 -pt elected for prostatectomy 01/26/19 BONE SCAN 11/27/18 - In the head, no significant abnormalities are present. - In the thoracic cage and upper extremities, there is mildly increased activity in the acromioclavicular joints bilaterally and minimally in the sternoclavicular joints bilaterally. There is a faint focus of increased activity in the posterior aspect of the left ninth rib and a faint linear focus of increased activity is present in the anterolateral aspect of the right sixth rib. - In the spine, no significant abnormalities are present. - In the pelvis, there is minimally increased activity in the superior lip of the left acetabulum. - In the lower extremities, there is mildly increased activity in the patellar compartments of both knees and in a faint focus in the posterior plantar surface of the left calcaneus, probably related to a plantar fasciitis. -he had follow up in May 2021. Assessment & Plan (10/16/2022 9:53 AM EDT): Prostate cancer diagnosed on 10/15/18. - PSA on 08/2018 was 6% % free was 15. Prior to prostatectomy. -Biopsy 10/15/18 was adenocarcinoma [place] score 8.4 of 12 cores positive for CA. -[facility] by [facility] -PSA 08/2018 6.0 down from 8.0 -PSA 03/2020 undetectable -Urology note from 11/2020 states PSA undetectable, lab result requested 04/05/2021 -s/p LHRH injection 10/16/[address] Adan. -Pt transferred to [facility] with Dr. Haas. visit with Dr. Haas was on 11/04/2018 -pt elected for prostatectomy 01/26/19 BONE SCAN 11/27/18 - In the head, no significant abnormalities are present. - In the thoracic cage and upper extremities, there is mildly increased activity in the acromioclavicular joints bilaterally and minimally in the sternoclavicular joints bilaterally. There is a faint focus of increased activity in the posterior aspect of the left ninth rib and a faint linear focus of increased activity is present in the anterolateral aspect of the right sixth rib. - In the spine, no significant abnormalities are present. - In the pelvis, there is minimally increased activity in the superior lip of the left acetabulum. - In the lower extremities, there is mildly increased activity in the patellar compartments of both knees and in a faint focus in the posterior plantar surface of the left calcaneus, probably related to a plantar fasciitis. -he had follow up in May 2021. Assessment & Plan (07/08/2022 11:43 AM EDT): Prostate cancer diagnosed on 10/15/18. - PSA on 08/2018 was 6% % free was 15. Prior to prostatectomy. 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 -[facility] by [facility] -PSA 08/2018 6.0 down from 8.0 -PSA 03/2020 undetectable -Urology note from 11/2020 states PSA undetectable, lab result requested 04/05/2021 -s/p LHRH injection 10/16/[address] Adan. -Pt transferred to [facility] with Dr. Haas. visit with Dr. Haas was on 11/04/2018 -pt elected for prostatectomy 01/26/19 BONE SCAN 11/27/18 - In the head, no significant abnormalities are present. - In the thoracic cage and upper extremities, there is mildly increased activity in the acromioclavicular joints bilaterally and minimally in the sternoclavicular joints bilaterally. There is a faint focus of increased activity in the posterior aspect of the left ninth rib and a faint linear focus of increased activity is present in the anterolateral aspect of the right sixth rib. - In the spine, no significant abnormalities are present. - In the pelvis, there is minimally increased activity in the superior lip of the left acetabulum. - In the lower extremities, there is mildly increased activity in the patellar compartments of both knees and in a faint focus in the posterior plantar surface of the left calcaneus, probably related to a plantar fasciitis. -he had follow up in May 2021. Chronic thoracic back pain 06/07/2021 Erectile dysfunction 06/07/2021 Multiple vessel coronary artery disease 06/07/19 22 Overview (03/23/2024): Nuclear stress test was positive 01/2020 Per 03/10/20 cardiology note, hypertension was uncontrolled, carvedilol 3.125 mg BID was started. Stress test suggested ischemia, patient started on aspirin 81 mg for anticoagulation. Per 05/03/20 cardiology note, hypertension was uncontrolled, hydralazine 25 mg BID was initiated and counseled to continue HCTZ, to help with swelling. No discontinuations specifically mentioned. Per 03/23/24 cardiology note continue current medications. Patient followed at [facility] with Dr. Blaine Robertson DO. Note from 03/22/24 reviewed. The 10-year ASCVD risk score (Pacific DK, et al., 2019) is: 26.9% -start Atorvastatin 40 mg 02/25/24 Assessment & Plan (02/26/2024 9:32 AM EDT): Nuclear stress test was positive 01/2020 Per 03/10/20 cardiology note, hypertension was uncontrolled, carvedilol 3.125 mg BID was started. Stress test suggested ischemia, patient started on aspirin 81 mg for anticoagulation. Per 05/03/20 cardiology note, hypertension was uncontrolled, hydralazine 25 mg BID was initiated and counseled to continue HCTZ, to help with swelling. No discontinuations specifically mentioned. Pharmacy contacted cardilogy address nonadherence and restarting of medications at correct doses. Per Shaylee in field contact technician office on 07/07/20, patient is to continue HCTZ 25 mg daily and hydralazine 25 mg BID. Patient was contacted, was agreeable and confirmed understanding. Patient followed at [facility] with Dr. Blaine Robertson DO. Note from 09/18/23 reviewed. The 10-year ASCVD risk score (Deneen DK, et al., 2019) is: 26.9% -start Atorvastatin 40 mg 02/25/24 Assessment & Plan (07/03/2023 11:56 AM EST): Nuclear stress test was positive 01/2020. Assessment & Plan (10/16/2022 9:53 AM EDT): Nuclear stress test was positive 01/2020. Assessment & Plan (07/08/2022 11:44 AM EDT): Nuclear stress test was positive 01/2020. Essential hypertension 03/15/2021 Overview (02/26/2024): -Continue lifestyle modifications -Continue current medications -Blood pressure is not at goal after taking meds 07/03/2023. He reported normal BP at home. Advised to keep tracking of BP at home. Will schedule call with nursing staff in two week to follow up on hypertension . -BP at goal today 02/25/24 -Ordered TSH, FLP and HFP 02/25/24 Assessment & Plan (02/26/2024 9:44 AM EDT): -Continue lifestyle modifications -Continue current medications -Blood pressure is not at goal after taking meds 07/03/2023. He reported normal BP at home. Advised to keep tracking of BP at home. Will schedule call with nursing staff in two week to follow up on hypertension . -BP at goal today 02/25/24. -Ordered TSH, FLP and HFP 02/25/24 Assessment & Plan (07/03/2023 12:07 PM EST): -Continue lifestyle modifications -Continue current medications - Blood pressure is not at goal after taking meds 07/03/2023. He reported normal BP at home. Advised to keep tracking of BP at home. Will schedule call with nursing staff in two week to follow up on hypertension . Assessment & Plan (10/16/2022 11:40 AM EDT): -Blood pressure is at goal -Continue lifestyle modifications -Continue current medications Encounters * This document contains information received from the source organization and may not represent a complete record from that organization. Date Type Department Care Team Description 06/01/2024 11:00 AM EST Office Visit [facility] [address] [place] [id number] Patrick Sorto MD Balance disorder (Primary Dx) 06/01/2024 Travel 03/23/2024 Telephone [facility] [address] [place] [phone] Marga Snider MD Lab Orders from Last 3 Months Immunizations Name Administration Dates Next Due Hep B, adult 03/18/2023,10/16/2022,07/10/2022 INFLUENZA VACCINE QUADRIVALE NT RECOMBINANT PRESERVATIVE FREE RIV4 02/11/2020 Influenza High-dose Quadriva lent Preservative Free 02/11/2023,01/14/2022,02/12/2021 Influenza injectable quadriv alent preservative free 02/09/2015 Influenza, High Dose Seasona l, Preservative Free 02/19/2024,02/17/2019,01/29/2017,2015 Influenza, trivalent, adjuvanted 02/11/2018 Moderna Covid-19 Vaccine 12+ 09/03/2021, 03/08/2021,07/13/2020,2020 Moderna Covid-19 Vaccine 6+ Bivalent 07/10/2022 Pfizer Covid-19 Vaccine 12+ 02/19/2024, Pneumococcal Conjugate PCV 13 04/08/2018 Pneumococcal Conjugate PCV 20 01/14/2022 RSV Bivalent 07/07/2023 Tdap 09/21/2014 Zoster, Recombinant 11/23/2021,09/20/2021 Zoster, live 02/15/2012 Social History Tobacco Use Types Packs/Day Years Used Date Smoking Tobacco: Never Smokeless Tobacco: Never Tobacco Cessation:Counseling Given: Not Answered Alcohol Use Standard Drinks/Week Comments Not Currently [...] Orientation Straight 02/25/2022 10 :15 AM EDT Last Filed Vital Signs Vital Sign Reading [...] Mass Index 26.4 06/01/2024 11:11 AM EST Plan of Treatment Health Maintenance Due Date Last Done Comments CT Colonography 1950 Dental Prophylaxis 1950 FIT DNA/Cologuard 1950 FIT 1950 FOBT 1950 Sigmoidoscopy 1950 Dental X-Ray: Bitewings 09/12/2010 09/11/2009 Dental Oral Exam 05/20/2021 11/16/2020, 10/25/2009 SDOH Screening 07/11/2023 07/10/2022 Dental X-Ray: Full Mouth 11/18/2023 11/16/2020, 08/26 DTaP/Tdap/Td Vaccines (2 - Td or Tdap) 09/21/2024 09/21/2014 Alcohol/Substance Use Screening 02/25/2025 02/26/2024 Depression Screening 02/25/2025 02/26/2024, 02/26/20 Diabetes: Hemoglobin A1C 03/17/2025 03/17/2024, 09/27 Tobacco Screening 06/01/2025 06/01/2024 Colonoscopy 12/31/2026 12/31/2021 Colorectal Cancer Screening 12/31/2026 Lipid Panel 03/17/2029 03/17/2024, 06/26, 07/17/2022, Additional history exists Zoster Vaccines Completed 11/23/2021, 08/27, 02/15/2012 Pneumococcal Vaccine: 50+ Years Completed 01/14/2022, 04/08/2018 Hepatitis C Screening Completed 07/17/2022 Hepatitis B Vaccines Completed 03/18/2023, 10/16/2022, 07/10/2022 RSV Patients and Patients Aged 60 years or older Completed 07/07/2023 COVID-19 Vaccine Completed 02/19/2024, , 07/10/2022, Additional history exists Influenza Vaccine Completed 02/19/2024, , 01/14/2022, Additional history exists HIB Vaccines Aged Out No longer eligi ble based on patient's age to complete this topic HPV Vaccines Aged Out No longer eligi ble based on patient's age to complete this topic Hepatitis A Vaccines Aged Out No long er eligible based on patient's age to complete this topic IPV Vaccines Aged Out No longer eligi ble based on patient's age to complete this topic Meningococcal Vaccine Aged Out No adolph lacey eligible based on patient's age to complete this topic RSV under 20 months Aged Out No longe r eligible based on patient's age to complete this topic Rotavirus Vaccines Aged Out No longer eligible based on patient's age to complete this topic Goals Goal Patient Goal Type Associated Problems Recent Progress Patient-Stated? Author Blood Pressure < 140/90 Blood Pressure 145/80( 025 11:11 AM EST) No Madelyn Mcleod PharmD Procedures Procedure Name Priority Date/Time Associated Diagnosis Comments ALBUMIN, RANDOM URINE W/CREATININE Routine 03/17/2024 10:34 AM EST Microalbuminuria VITAMIN D,25-OH,TOTAL,IA Routine 03/17/2024 8:07 AM EST Total body pain C-REACTIVE PROTEIN Routine 03/17/2024 8: 07 AM EST Total body pain SED RATE BY MODIFIED WESTERGREN Routine 03/17/2024 8:07 AM EST Total body pain RHEUMATOID FACTOR Routine 03/17/2024 8:0 7 AM EST Total body pain STEFANO SCREEN, IFA, W/REFL TITER AND PATTERN Routine 03/17/2024 8:07 AM EST Total body pain BASIC METABOLIC PANEL Routine 03/17/2024 8:07 AM EST Essential hypertension HEMOGLOBIN A1C Routine 03/17/2024 8:07 AM EST Blood glucose elevated HEPATIC FUNCTION PANEL Routine 03/17/2024 8:07 AM EST Essential hypertension LIPID PANEL, STANDARD Routine 03/17/2024 8:07 AM EST Essential hypertension TSH W/REFLEX TO FT4 Routine 03/17/2024 8 :07 AM EST Essential hypertension Family history of thyroid disease HEPATITIS C AB W/REFL TO HCV RNA, QN, PCR Routine 07/17/2022 8:06 AM EDT Encounter for hepatitis C screening test for low risk patient HM COLONOSCOPY Routine 12/31/2021 PANORAMIC RADIOGRAPHIC IMAGE Routine 11/16/2020 12:00 AM EDT PERIODIC ORAL EVALUATION - ESTABLISHED PATIENT Routine 11/16/2020 12:00 AM EDT DIAGNOSTIC - DIAGNOSTIC IMAGING - INTRAORAL - COMPREHENSIVE SERIES OF RADIOGRAPHIC IMAGES Routine 09/11/2009 12:00 AM EDT from Last 3 Months or Most Recently Relevant to Health Maintenance Results * (ABNORMAL) Albumin, Random Urine W/Creatinine (03/17/2024 10:34 AM EST) Creatinine, Urine 540.90 mg/dL [facility] Microalbumin Urine 238.0 mg/L [facility] Microalbum Creatinine Ratio Ur 44.0(H) <30 ug/mg cr [facility] Comment:Albumin/Creatinine R atio Reference Ranges: Normal: < 30 ug/mg creatinine Microalbuminuria: 30 - 300 ug/mg creatinineClinical Albuminuria: > 300 ug/mg creatinine Urine 03/17/2024 10:3 4 AM EST 03/17/2024 11:45 AM EST us Marga Snider MD LAB URINE ORDERABLES Final Result [facility] [address] [place] [phone] * (ABNORMAL) Vitamin D, 25-Hydroxy, Total, Immunoassay (03/17/2024 8:07 AM EST) Vitamin D 25-OH Total 22.2(L) >30 ng/mL [facility] Comment:Health Based Referen ce Values*< 20 ng/mL Tgvehcyfc18-93 ng/mL Insufficient> 30 ng/mL Sufficient*Marielle LOYA. N Engl J Med. 2007;357:266-280Care must be taken in interpreting Vitamin D results fromdifferent laboratories and methodologies. Published datademonstrated that results from patients undergoinghemodialysis may show a negative bias when tested withvarious automated 25-OH vitamin D assays when compared toLC-MS/MS.When testing samples from patients whose predominant form ofVitamin D is Vitamin D2, such as patients receiving VitaminD2 supplementation, results that are subtherapeutic shouldbe confirmed with another method such as LC-MS/MS. Blood Venous blood specimen / Unknown 03/17/2024 8:07 AM EST 03/17/2024 11:22 AM EST Marga Snider MD LAB BLOOD ORDERABLES Final Result Performing Organization Address [facility] Co de Phone Number [facility] [address] [place] [phone] * TSH W/Reflex to FT4 (03/17/2024 8:07 AM EST) TSH reflex Free T4 1.50 0.32 - 4.0 uIU/mL [facility] Blood Venous blood specimen / Unknown 03/17/2024 8:07 AM EST 03/17/2024 11:22 AM EST Marga Snider MD LAB BLOOD ORDERABLES Final Result Performing Organization Address [facility] Co de Phone Number [facility] [address] [place] [phone] * (ABNORMAL) Sed Rate by Modified Stephanren (03/17/2024 8:07 AM EST) Erythrocyte Sedimentation Rate 16(H) 0 - 15 MM/HR [facility] Comment:Patients with polycy themia and many hemoglobin abnormalitiesmay have depressed sed rates whereas patients with anemiamay have elevated sed rates. Blood Venous blood specimen / Unknown 03/17/2024 8:07 AM EST 03/17/2024 11:28 AM EST Marga Snider MD LAB BLOOD ORDERABLES Final Result Performing Organization Address [facility] Co de Phone Number [facility] [address] [place] [phone] * (ABNORMAL) Rheumatoid Factor (03/17/2024 8:07 AM EST) Pathologist [facility] Rheumatoid Factor 42.2(H) <15.0 IU/mL [facility] Blood Venous blood specimen / Unknown 03/17/2024 8:07 AM EST 03/17/2024 11:22 AM EST Marga Snider MD LAB BLOOD ORDERABLES Final Result Performing Organization Address [facility] de Phone Number [facility] [address] [place] [phone] * C-reactive Protein (03/17/2024 8:07 AM EST) Pathologist [facility] C Reactive Protein 0.32 < or = 0.50 mg/dL [facility] Blood Venous blood specimen / Unknown 03/17/2024 8:07 AM EST 03/17/2024 11:22 AM EST Marga Snider MD LAB BLOOD ORDERABLES Final Result Performing Organization Address [facility] de Phone Number [facility] [address] [place] [phone] * STEFANO Screen,IFA, with Reflex to Titer and Pattern (03/17/2024 8:07 AM EST) Pathologist [facility] Anti Nuclear Antibody Screen NEGATIVE NEGATIVE [facility] Comment:STEFANO IFA is a first l ine screen for detecting thepresence of up to approximately 150 autoantibodies invarious autoimmune diseases. A negative STEFANO IFA resultsuggests an STEFANO-associated autoimmune disease is notpresent at this time, but is not definitive. If thereis high clinical suspicion for Sjogren's syndrome,testing for anti-SS-A/Ro antibody should be considered.Anti-Sosa-1 antibody should be considered for clinicallysuspected inflammatory myopathies.AC-0: NegativeInternational Consensus on STEFANO Patterns(https://doi.org/10.1515/irnq-8773-4344)For additional information, please refer tohttp://education.[employer]/faq/ZHR268(This link is being provided for informational/educational purposes only.)THIS TEST WAS PERFORMED AT:[facility] [place] [phone] HOLDER MD STEFANO Titer TNP [facility] ST[facility]ANO Pattern [facility] STEFANO TITER 2 (REF LAB) [facility] STEFANO Pattern 2 [facility] STEFANO TITER 3 [facility] STEFANO PATTERN 3 [facility] Blood Venous blood specimen / Unknown 03/17/2024 8:07 AM EST 03/17/2024 11:22 AM EST us Marga Snider MD LAB BLOOD ORDERABLES Final Result [facility] [address] [place] [phone] * (ABNORMAL) Hemoglobin A1c (03/17/2024 8:07 AM EST) Hemoglobin A1c 6.1(H) <6.0 % [facility] Comment:Hemoglobin A1C Refer ence Range Adults: 4.8 - 6.0 % Non diabetic: < 6.0 % Goal: < 7.0 %Additional Action Suggested: > 8.0 %Note: Hemoglobin A1c results are invalid for patients with abnormal amounts of HbF. Blood transfusions may impact the HbA1c concentration in the patient sample. Estimated Average Glucose 128 mg/dL [facility] Comment:eAG = Estimated ave rage glucose which is %A1C expressed asaverage glucose, using the formula of the D9P-EgtuzroIvkxzsf Glucose study (ADAG), Diabetes Care, Vol.31,#8,2007 Blood Venous blood specimen / Unknown 03/17/2024 8:07 AM EST 03/17/2024 11:28 AM EST Marga Snider MD LAB BLOOD ORDERABLES Final Result Performing Organization Address [facility] Co de Phone Number [facility] [address] [place] [phone] * (ABNORMAL) Hepatic Function Panel (03/17/2024 8:07 AM EST) Bilirubin, Total 1.3(H) 0.0 - 1.0 mg/dL [facility] Bilirubin, Direct 0.4 0.0 - 0.5 mg/dL [facility] Aspartate Amino Transferase 35 5 - 37 U/L [facility] Alanine Aminotransferase 45(H) 0 - 40 U/L [facility] Total Protein 7.3 6.5 - 8.0 g/dL [facility] Albumin Level 4.1 3.5 - 5.0 g/dL [facility] Alkaline Phosphatase 81 39 - 117 U/L [facility] Blood Venous blood specimen / Unknown 03/17/2024 8:07 AM EST 03/17/2024 11:22 AM EST Marga Snider MD LAB BLOOD ORDERABLES Final Result Performing Organization Address [facility] Co de Phone Number [facility] [address] [place] [phone] * Lipid Panel, Standard (03/17/2024 8:07 AM EST) Triglycerides 104 <150 mg/dL [facility] Comment:Desirable Triglyceri de: less than 150 mg/dLBorderline High Triglyceride 150-199 mg/dLHigh Triglyceride: 200-499 mg/dLVery High Triglyceride: greater than or equal to 5OO mg/dL Cholesterol 102 <200 mg/dL [facility] Comment:Desirable Cholestero l: less than 200 mg/dLBorderline High Cholesterol: 200-239 mg/dLHigh Cholesterol: greater than 239 mg/dL LDL Cholesterol Calculated 40 <100 mg/dL [facility] Comment:Desirable LDL: less than 100 mg/dLNear Optimal/Above Optimal LDL: 110- 129 mg/dLBorderline High LDL: 130-159 mg/dLHigh LDL: 160-189 mg/dLVery High LDL: greater than or equal to 190 mg/dL HDL Cholesterol 42 >40 mg/dL [facility] Comment:Desirable HDL: great er than 40 mg/dL Note: This HDL assay may give artificially low results in patients with liver disease. Blood Venous blood specimen / Unknown 03/17/2024 8:07 AM EST 03/17/2024 11:22 AM EST Marga Snider MD LAB BLOOD ORDERABLES Final Result [facility] [address] [place] [phone] * (ABNORMAL) Basic Metabolic Panel (03/17/2024 8:07 AM EST) Sodium 141 135 - 145 mmol/L [facility] Potassium 3.8 3.3 - 5.1 mmol/L [facility] Chloride 100 96 - 108 mmol/L [facility] Carbon Dioxide 34(H) 22 - 29 mmol/L [facility] Anion Gap 11(L) 12 - 20 [facility] Urea Nitrogen (BUN) 13 9 - 16 mg/dL [facility] Creatinine, Serum 0.79 0.5 - 1.4 mg/dL [facility] Estimated Glomerular Filt Rate >60 [facility] Comment:Chronic Kidney Disea se: Estimated GFR < 60 mL/min/1.69j9Oozipc Kidney Disease: Estimated GFR < 15 mL/min/1.73m2 Glucose 139(H) 60 - 115 mg/dL [facility] Calcium 9.3 8.4 - 10.2 mg/dL [facility] Blood Venous blood specimen / Unknown 03/17/2024 8:07 AM EST 03/17/2024 11:22 AM EST Marga Snider MD LAB BLOOD ORDERABLES Final Result Performing Organization Address [facility]/ZIP Co de Phone Number [facility] [address] [place] [phone] * Hepatitis C Antibody with Reflex to HCV, RNA, Quantitative, Real-Time PCR (07/17/2022 8:06 AM EDT) Hepatitis C Antibody NON-REACT VIRGIL NON-REACT VIRGIL [employer] Digital[employer] Index 0.02 <1.00 [facility] Comment: HCV antibody was non-reactive. There is no laboratory evidence of HCV infection. In most cases, no further action is required. However, if recent HCV exposure is suspected, a test for HCV RNA (test code 41696) is suggested. For additional information please refer to http://education.[employer]/faq/QFR21s9 (This link is being provided for informational/ educational purposes only.) Blood Venous blood specimen / Unknown 07/17/2022 8:06 AM EDT 07/17/2022 8:06 AM EDT Narrative [facility] - 07/17/2022 10:26 PM EDT FASTING:YES FASTING: YES Marga Snider MD LAB BLOOD ORDERABLES Final Result Performing Organization Address [facility] Co de Phone Number [facility] [address], [place] [phone] [employer] [place] [employer] [address] [place] [phone] * Hm Colonoscopy (12/31/2021) Colonoscopy Tubular adenoma with Dr. Packer Rupa Akins MD HEALTH MAINTENANCE Final Result from Last 3 Months or Most Recently Relevant to Health Maintenance Insurance HSN FULL [employer]ET[employer] MEDICARE REPLACEMENT DENTAL - HSN FULL (MEDICAID) DENTAL - AETNA DENTAL PPO Advance Directives Documents on File Type Date Recorded Patient Zipper Setter Chainstitch Expl anation Advance Directives and Living Will 02/26/2024 Health Care Proxy 02/26/24 Care Teams Optical Fabrication Technician Relationship Specialty Start Date End Date Agatha, MD Marga [address] [place] [phone] PCP - General Family Medicine 12/11/16 Matty Robertson MD [address] [place] [phone] Cardiology 03/23/24
--- OUTSIDE RECORDS SUMMARY | 2024-06-02 07:41 | XMS_ITS | Encounter Summary ---
Author Organization [employer] Address [address] [place] [address] [address] [place] [address] Care Team Providers Care Alterations Sewer Name Role Phone Marga Snider MD Primary Care Provider [phone] Madelyn Berry PharmD Unavailable Matty Robertson MD Unavailable Encounter Details Date Type Department Care Team (Late st Contact Info) Description 05/14/2022 Abstract [facility] [address] [place] [address] Marga Snider MD [address] [place] [address] Social History Tobacco Use Types Packs/Day Years Used Date Smoking Tobacco: Never Assessed Sex and Gender Information Value Date Recorded Sex Assigned at Male 02/25/2022 10:15 AM EDT Legal Sex Male 10:15 AM EDT Gender Identity Male 02/25/2022 10:15 AM EDT Sexual Orientation Straight 02/25/2022 10 :15 AM EDT COVID-19 Exposure Response Date Recorded In the last 10 days, have yo u been in contact with someone who was confirmed or suspected to have Coronavirus/COVID-19? No / Unsure 05/17/2022 8:40 AM EST documented as of this encounter Plan of Treatment Not on file documented as of this encounter Procedures Procedure Name Priority Date/Time Associated Diagnosis Comments COLONOSCOPY Routine 12/31/2021 documented in this encounter Results * Colonoscopy (12/31/2021) Colonoscopy Tubular adenoma with Dr. Packer us Historical Provider HEALTH MAINTENANCE Final Result documented in this encounter Visit Diagnoses Not on filedocumented in this encounter Care Teams Alterations Sewer Relationship Specialty Start Date End Date Marga Snider MD [address] [place] [phone] PCP - General Family Medicine 12/11/16 Madelyn Berry, ChikaD [address] [place] [address] Pharmacist Internal Medicine 02/27/23 09/16/23 Matty Robertson MD [address] [place] [phone] Cardiology 03/23/24 documented as of this encounter
--- OUTSIDE RECORDS SUMMARY | 2024-06-02 07:41 | XMS_ITS | Encounter Summary ---
Author Organization [employer] Address [address] [facility] [address]t [place] [address] Care Team Providers Care Environmental Research Scientist Name Role Phone Marga Snider MD Primary Care Provider [phone]- [phone] Madelyn Berry PharmD Unavailable Matty Robertson MD Unavailable [phone] Encounter Details Date Type Department Care Team (Late st Contact Info) Description 02/03/2023 Abstract [facility] MEDICINE [address] [place] [address] Marga Snider MD [address] [place] [address] Preventative health care Social History Tobacco Use Types Packs/Day Years Used Date Smoking Tobacco: Never Smokeless Tobacco: Never Alcohol Use Standard Drinks/Week Comments Yes 1 (1 standard drink = 0.6 oz pur e alcohol) Occassionally Housing Stability Answer Date Recorded What is your housing situation today? I am not s ure 02/02/[address] you li ve. Do you have problems with any of the following? None of the above 02/02/2023 Food Insecurity Answer Date Recorded Within the past 12 months, y ou worried that your food would run out before you got money to buy more: Never True 02/02/2023 Within the past 12 months,th e food you bought just didn't last and you didn't have enough money to get more: Never True 11/2022 Transportation Answer Date Recorded In the past 12 months, has l ack of transportation kept you from medical appts, meetings, work or from getting things needed for daily living? No 02/02/2023 Utilities Answer Date Recorded In the past 12 months, has t he electric, gas, oil or water company threatened to shut off services in your home? No 02/02/2023 Depression Answer Date Recorded Patient Health Questionnaire-2 Score 2 07/10/2022 Sex and Gender Information Value Date Recorded Sex Assigned at Male 02/25/2022 10:15 AM EDT Legal Sex Male 10:15 AM EDT Gender Identity Male 02/25/2022 10:15 AM EDT Sexual Orientation Straight 02/25/2022 10 :15 AM EDT documented as of this encounter Plan of Treatment Not on file documented as of this encounter Goals Goal Patient Goal Type Associated Problems Recent Progress Patient-Stated? Author Blood Pressure < 140/90 Blood Pressure 145/80( 025 11:11 AM EST) No Madelyn Mcleod, PharmD documented as of this encounter Visit Diagnoses Diagnosis Preventative health care Routine general medical examination at a health care facility documented in this encounter Care Teams Environmental Research Scientist Relationship Specialty Start Date End Date Marga Snider MD [address] [place] [address] PCP - General Family Medicine 12/11/16 Madelyn Berry, PharmD [address] [place] [address] Pharmacist Internal Medicine 02/27/23 09/16/23 Matty Robertson MD [address] [place] [phone] Cardiology 03/23/24 documented as of this encounter
--- OUTSIDE RECORDS SUMMARY | 2024-06-02 07:41 | XMS_ITS | Encounter Summary ---
Author Organization [employer] Address [address] [facility] [address]t [place] [address] Care Team Providers Care Correctional Officer Captain Name Role Phone Marga Snider MD Primary Care Provider [phone]- [phone] Matty Robertson MD Unavailable [phone] Encounter Details Date Type Department Care Team (Latest Contact Info) Description 06/01/2024 Travel Social History Tobacco Use Types Packs/Day Years [...] Time PHQ-9 Depression Total Score: 0 02/26/20 9:42 AM EDT documented as of this encounter Care Teams Correctional Officer Captain Relationship Specialty Start Date End Date Marga Snider MD [address] [place] [address] PCP - General Family Medicine 12/11/16 Matty Robertson MD [address] [place] [address] Cardiology 03/23/24 documented as of this encounter
--- OUTSIDE RECORDS SUMMARY | 2024-06-02 07:41 | XMS_ITS | Encounter Summary ---
Author Organization [employer] Address [address] [facility] [address]t [place] [address] Care Team Providers Care Teller Coordinator Name Role Phone Marga Snider MD Primary Care Provider [phone]- [phone] Madelyn Berry PharmD Unavailable [phone] Matty Robertson MD Unavailable [phone] Reason for Visit * Reason Onset Date Comments Appointment Request 06/30/2023 Encounter Details Date Type Department Care Team (Late st Contact Info) Description 06/30/2023 Telephone [facility] MEDICINE [address] [place] [address] Marga Snider MD [address] [place], [place] [phone] Appointment Request Social History Tobacco Use Types Packs/Day Years [...] encounter Miscellaneous Notes * Telephone Encounter - Nik Davis - 06/30/2023 8:09 AM EST Tc from patient calling to cancel PE appt for 06/29 due to not feeling well and would like to reschedule race and sports book writer did triage the patient documented in this encounter Plan of Treatment [...] documented as of this encounter Care Teams Teller Coordinator Relationship Specialty Start Date End Date Marga Snider MD [address] [place] [address] PCP - General Family Medicine 12/11/16 Madelyn Berry, PharmD [address] [place] [address] Pharmacist Internal Medicine 02/27/23 09/16/23 Matty Robertson MD [address] [place] [address] Cardiology 03/23/24 documented as of this encounter
--- NOTE | 2024-06-02 07:47 | ED.GENADULT ---
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 On Friday he came home from [facility] around 1pm and sat down. He leaned forward to reach for something on the floor and felt unsteady, was able to grab on to a nearby piece of furniture and denies falling. Since that time he has intermittently felt off balance, has been using a cane at times. States symptoms do not correlate with position changes. Denies headaches, vision changes, chest pain, dyspnea, palpitations. Denies any abdominal pain, nausea, vomiting, diarrhea, constipation or urinary symptoms. Denies fevers, cough. MD complaint: unsteady Onset (ago): day(s) Associated symptoms: denies other symptoms Treatments prior to arrival: none Related Data Home Medications ?Medication ?Instructions ?Recorded ?Confirmed acetaminophen 650 mg 650 mg PO Q12H 07/11/21 12/20/21 tablet,extended release diphenhydramine HCl 25 mg capsule 25 mg PO Q6H PRN Inflammation 07/11/21 12/20/21 (Benadryl) fluticasone propionate 50 1 spray intranasal DAILY 07/11/21 12/20/21 mcg/actuation nasal spray,suspension hydrochlorothiazide 25 mg tablet 25 mg PO DAILY 07/11/21 12/20/21 multivitamin-ferrous 1 tab PO DAILY 07/11/21 12/20/21 fumarate-folic acid 18 mg-400 mcg tablet (Centrum Complete) aspirin 81 mg chewable tablet 1 tab PO DAILY 12/20/21 12/20/21 diclofenac sodium 75 mg 75 mg PO BID PRN pain 03/19/23 tablet,delayed release hydralazine 25 mg tablet 25 mg PO BID 03/19/23 Previous Rx's ?Medication ?Instructions ?Recorded Linzess 145 mcg capsule 145 mcg PO DAILY #90 caps 09/17/23 (linaclotide) Allergies Allergy/AdvReac Type Severity Reaction Status Date / Time No Known Allergies Allergy Verified 06/02/24 07:11 [No Known Allergies*] Review of Systems Review of Systems: As per HPI. Yes all other systems are reviewed and are negative Constitutional: Constitutional: Reports as per HPI [facility] Past Medical History Medical History Tubular adenoma HTN (hypertension) Surgical History History of prostate surgery Hx of colonoscopy Family History Family History Father Alzheimer disease Mother Thyroid disease Social History Social History Household Members: Spouse Alcohol intake: never Patient Tobacco Use Status: Never used Tobacco Physical Exam ED Vital Signs: Vital Signs - 24 hr 06/02/24 07:08 06/02/24 08:05 06/02/24 08:06 Temperature 97.0 F Pulse Rate 84 78 78 Respiratory Rate 20 16 Blood Pressure 137/67 142/75 H 142/75 H Pulse Oximetry 97 94 Oxygen Delivery Method Room Air Room Air 06/02/24 08:06 06/02/24 08:07 06/02/24 09:58 Temperature Pulse Rate 78 82 69 Respiratory Rate 16 Blood Pressure 132/66 148/77 H 133/81 Pulse Oximetry 97 Oxygen Delivery Method Room Air 06/02/24 11:47 Temperature 97.9 F Pulse Rate 71 Respiratory Rate 14 Blood Pressure 138/74 Pulse Oximetry 98 Oxygen Delivery Method Room Air BMI result Body Mass Index 26.8 Vital signs have been reviewed and appear to be correct. Blood pressure normal. Heart rate normal. Respiratory rate normal. Temperature normal. Oxygen saturation normal. Const General: cooperative, healthy appearing and no acute distress Orientation/consciousness: oriented to person, oriented to place, oriented to time and patient oriented x3 Limitations: no limitations HENMT Head: Yes normocephalic and Yes atraumatic Ears: hearing grossly normal bilaterally, external ears normal, TM's normal bilaterally and EAC's normal General nose exam: Normal external nose present and Normal nasal mucous membranes and turbinates present Face and sinus: Yes face symmetric Mouth: oropharynx normal and moist mucous membranes Throat: Yes uvula midline Eyes General: appearance normal, both eyes and all related structures Visual Forman: normal visual forman by confrontation Pupils: Equal, round and reactive pupils present EOM: EOMs intact bilaterally Neck Neck: Yes normal visual inspection, Yes no meningeal signs and Yes supple Resp Effort & Inspection: normal respiratory effort and able to speak in complete sentences Auscultation: clear to auscultation bilaterally Cardio Rate: regular rate Rhythm: regular rhythm Heart sounds: S1 normal heart sound present and S2 normal heart sound present GI Palpation (GI): Soft to palpation and nontender Auscultation: normoactive bowel sounds General: Yes no CVA tenderness Back/Spine/Pelvis Back: no CVA tenderness Skin General skin exam: elasticity normal and turgor normal Neuro General: oriented to person, oriented to place, oriented to time, patient oriented x3, gait normal, tone normal, moves all extremities, Normal light touch and pain sensation, no meningeal signs, no focal motor deficits, CN's II-XI intact bilaterally and deep tendon reflexes 2+ bilaterally Cranial nerves: Yes Equal, round and reactive pupils present Cognition (Neuro): normal cognition Motor exam (neuro): 5/5 motor strength present throughout, Pronator motor function not present, no tremor noted, no asterixis, Motor fasciculations not present, Normal motor muscle tone present throughout and Motor abnormalities not present Coordination: [id number] test normal, unlt-yu-[id number] test normal, tandem gait normal and Romberg test negative Extrem General: Yes full ROM, Yes no pedal edema and Yes no calf tenderness Psych Mental Status: mental status grossly normal Affect: normal affect Thought process: Normal thought process present NIH Stroke Scale Internal: Initial- Upon Arrival Time: 08:04 Level of Consciousness: Alert Level of Consciousness Questions: Answers both questions correctly Level of Consciousness Commands: Performs both tasks correctly Best Gaze: Normal Visual: No visual loss Facial Palsy: Normal Motor Arm (Right): No drift Motor Arm (Left): No drift Motor Leg (Right): No drift Motor Leg (Left): No drift Limb Ataxia: Absent Sensory: Normal Best Language: No aphasia Dysarthia: Normal Extinction and Inattention: No abnormality Score: 0 Course Reevaluation(s) Reevaluation #1: Dr. Mcmahan: I saw this patient with physician assistant banquet manager. The patient is a 74-year-old man he describes a feeling of unsteadiness that began 3 days ago on Friday. he clearly describes the episode as beginning after he had stood up from bending over. Yesterday he went to the [facility] where he described his symptoms and was advised to come to the emergency room. He then came to the emergency room here today. At the moment he seems quite asymptomatic. His neurological exam is normal. His NIH stroke scale is 0. His gait seems steady. Given that this syndrome began with a change in position I think this was probably more some kind of be peripheral vertigo syndrome rather than a posterior circulation stroke syndrome. out of an abundance of caution it might be reasonable for him to take a baby aspirin daily until he follows up with his regular doctor but at the moment he seems to be doing quite well. Medical Decision Making Medical Decision Making [facility] Narrative: Patient is a 74-year-old male with history of HTN presenting to the emergency department with complaint of feeling off balance intermittently since Friday. On exam patient is awake, A+Ox3, VS WNL, afebrile, normal neurological exam without focal deficits, physical exam findings as above. Given reported symptoms and physical exam findings, initial differential includes but is not limited to viral illness, UTI, pneumonia, ICH, ACS, dehydration, electrolyte abnormality, drug or alcohol intoxication, orthostatic intolerance. Labs notable for no leukocytosis, no anemia, no significant electrolyte abnormalities, slightly elevated Tbili with normal transaminases, ethanol negative. Viral serology negative. X-ray chest notable for no evidence of pneumonia. CT head notable for no evidence of acute intracranial abnormality. My interpretation is in agreement with the radiologist's interpretation. No evidence of infection on UA. Case discussed with Dr. Mcmahan who also evaluated patient. He recommends starting patient on daily baby aspirin if not already on this, but feels he is stable for discharge to follow up with PCP, MRI not indicated at this time. Patient is currently taking daily ASA. Discussed with patient that he should follow up with PCP. Return precautions discussed at bedside. Patient verbalized understanding of and agreement with plan. In-person spanish interpreter/translator was utilized for all interactions, assessments, and discussions. Differential Diagnosis Differential Diagnoses: The differential diagnosis associated with the presentation includes As per [facility] Admission/Observation Consideration of admission/observation: Escalation of care including admission/observation considered Patient would have been admitted to the hospital had their work up had any findings where hospital admission was appropriate and their clinical presentation warranted hospital admission. Lab Data [facility] Lab Attestation statement: I reviewed the patient's lab results. As per MDM 06/02/24 08:12 06/02/24 08:12 Labs: Lab Results 06/02/24 06/02/24 Range/Units 08:12 09:53 WBC 7.5 (4.8-10.8) X10*3/uL RBC 4.86 (4.60-5.80) X10*6/uL Hgb 14.8 (14.0-18.0) g/dl Hct 42.9 (42.0-52.0) % MCV 88.3 (80.0-98.0) fL MCH 30.5 (27.0-33.0) pg MCHC 34.5 (31.0-36.0) g/dl RDW 12.7 (11.0-16.0) % Plt Count 253 (160-400) X10*3/uL MPV 9.0 L (9.4-12.4) fL Immature Gran % (Auto) 0.4 (0.0-0.4) % Neut % (Auto) 61.0 (45-73) % Lymph % (Auto) 27.7 (20-40) % [place] % (Auto) 8.7 (2-11) % Eos % (Auto) 1.7 (0-4) % Baso % (Auto) 0.5 (0-2) % Lymph # (Auto) 2.1 (1.2-4.9) X10*3/uL [place] # (Auto) 0.7 (0.1-1.2) X10*3/uL Eos # (Auto) 0.1 (0.0-0.4) X10*3/uL Baso # (Auto) 0.0 (0.0-0.2) X10*3/uL Abs Immat Gran (auto) 0.03 (0.00-0.03) X10*3/uL Absolute Neuts (auto) 4.6 (2.0-8.3) x10*3/uL Absolute Nucleated RBC 0.000 (0.0-0.012) X10*3/uL Nucleated RBC % (auto) 0.0 (0.0-0.2) /100WBC PT 11.7 (10.9-12.4) SEC INR 1.0 (0.9-1.1) Sodium 139 (135-145) mmol/L Potassium 3.6 (3.3-5.1) mmol/L Chloride 105 (96-108) mmol/L Carbon Dioxide 26 (22-29) mmol/L Anion Gap 12 (12-20) BUN 14 (9-16) mg/dL Creatinine 0.73 (0.5-1.4) mg/dL Estim Creat Clear Calc 83.0 Estimated GFR > 60 Random Glucose 148 H (60-115) mg/dL Calcium 8.9 (8.4-10.2) mg/dL Magnesium 2.1 (1.6-2.6) mg/dL Total Bilirubin 1.4 H (0.0-1.0) mg/dL AST 27 (5-37) U/L ALT 35 (0-40) U/L Alkaline Phosphatase 81 (39-117) U/L Troponin I High Sens 2.9 (<3.5-35.0) ng/L Total Protein 7.6 (6.5-8.0) g/dL Albumin 4.1 (3.5-5.0) g/dL Urine Color Yellow Urine Appearance Clear Urine pH 5.5 (5.0-9.0) Ur Specific [place] 1.015 (1.005-1.025) Urine Protein Negative (Neg-Trace) mg/dL Urine Glucose (UA) Negative (Negative) mg/dL Urine Ketones Negative (Negative) mg/dL Urine Blood Negative (Negative) Urine Nitrite Negative (Negative) Ur Leukocyte Esterase Negative (Negative) Urine Opiates Screen Not Detected (Not Detect) Ur Buprenorphine Scrn Not Detected (Not Detect) ng/mL Ur Oxycodone Screen Not Detected (Not Detect) ng/mL Urine Methadone Screen Not Detected (Not Detect) ng/mL Urine Fentanyl Screen Not Detected (Not Detect) Ur Barbiturates Screen Not Detected (Not Detect) Ur Phencyclidine Scrn Not Detected (Not Detect) Ur Amphetamines Screen Not Detected (Not Detect) U Benzodiazepines Scrn Not Detected (Not Detect) Urine Cocaine Screen Not Detected (Not Detect) U Marijuana (THC) Screen Not Detected (Not Detect) Ethyl Alcohol < 10 mg/dL Influenza Type A (PCR) NEGATIVE (Negative) Influenza Type B (PCR) NEGATIVE (Negative) RSV RNA Qual (PCR) NEGATIVE (Negative) SARS-CoV-2 RNA (RT-PCR) NEGATIVE (Negative) Independent Interpretation I performed an independent interpretation of an: Plain X-Ray and CT Scan Interpretation: X-ray chest notable for no evidence of pneumonia. CT head notable for no evidence of acute intracranial abnormality. Radiology Impression Discussion of test interpretation with radiology: I have reviewed the radiologist's reading. Radiologist Impression: CT/CT head/brain wo IV con IMPRESSION: No acute intracranial abnormality.. XR/XR chest 1V IMPRESSION: No acute cardiopulmonary process seen. External Record Review External record reviewed: Inpatient record, Office record and Outpatient record Prescription Management I considered prescription management with: Other Discharge Plan Discharge Clinical Impression: Unsteady gait when walking Patient Disposition: Home, Self-Care Instructions: Dizziness (ED) Additional Instructions: You were evaluated in the emergency department today for an unsteady gait. Your evaluation did not reveal evidence of conditions requiring emergent medical treatment at this time. We recommend that your follow up with your primary care provider this week. Return to the emergency department if you experience constant dizziness, severe headache, are unable to walk due to dizziness, if you experience weakness, numbness, or tingling to your extremities, or any other new or concerning symptoms. Prescriptions: No Action aspirin 81 mg tablet,chewable 1 tab PO DAILY hydralazine 25 mg tablet 25 mg PO BID acetaminophen 650 mg tablet extended release 650 mg PO Q12H diphenhydramine HCl [Benadryl] 25 mg capsule 25 mg PO Q6H PRN (Reason: Inflammation) hydrochlorothiazide 25 mg tablet 25 mg PO DAILY fluticasone propionate 50 mcg/actuation spray,suspension 1 spray intranasal DAILY Rx Instructions: administer into each nostril Centrum Complete 18-400 mg-mcg tablet 1 tab PO DAILY Linzess 145 mcg capsule 145 mcg PO DAILY Qty: 90 4RF diclofenac sodium 75 mg tablet,delayed release (DR/EC) 75 mg PO BID PRN (Reason: pain) Interventions: ED Discharge Assessment Last Done: 06/02/24 11:47 Discharge Date/Time: 06/02/24 11:50 Print Language: Serbian
--- NOTE | 2024-06-02 07:48 | ECG_ITS ---
Test Reason : weakness/dizziness Blood Pressure : */* mmHG Vent. Rate : 77 BPM Atrial Rate : 77 BPM P-R Int : 168 ms QRS Dur : 136 ms QT Int : 416 ms P-R-T Axes : 50 -51 70 degrees QTcB Int : 470 ms Normal sinus rhythm Left axis deviation Left bundle branch block Abnormal ECG When compared with ECG of 20-Dec-2021 12:13, No significant changes seen Referred By: Katie Sommer Electronically Signed By: Frederick Cortés
[2024-06-02 08:05] VITALS: BP 142/75; PULSE 78; RESP 16; O2SAT 94
[2024-06-02 08:06] VITALS: BP 132/66; BP 142/75; PULSE 78
[2024-06-02 08:07] VITALS: BP 148/77; PULSE 82
[2024-06-02 08:21] LABS: MANUAL DIFF FLAG NO
[2024-06-02 08:22] LABS: Basophils Percent Auto 0.5 % (0-2); Eosinophils Absolute Auto 0.1 X10*3/uL (0.0-0.4); Eosinophils Percent Auto 1.7 % (0-4); Hematocrit 42.9 % (42.0-52.0); Hemoglobin 14.8 g/dl (14.0-18.0); Imm Gran Abs Auto 0.03 X10*3/uL (0.00-0.03); Imm Gran Pct Auto 0.4 % (0.0-0.4); Lymphocytes Absolute Auto 2.1 X10*3/uL (1.2-4.9); Lymphocytes Percent Auto 27.7 % (20-40); Mean Corpuscular HGB Conc 34.5 g/dl (31.0-36.0); Mean Corpuscular Hemoglobin 30.5 pg (27.0-33.0); Mean Corpuscular Volume 88.3 fL (80.0-98.0); Monocytes Absolute Auto 0.7 X10*3/uL (0.1-1.2); Monocytes Percent Auto 8.7 % (2-11); Neutrophils Absolute Auto 4.6 x10*3/uL (2.0-8.3); Platelet Count 253 X10*3/uL (160-400); Red Blood Count 4.86 X10*6/uL (4.60-5.80); Red Cell Distribution Width 12.7 % (11.0-16.0); White Blood Count 7.5 X10*3/uL (4.8-10.8)
[2024-06-02 08:34] LABS: Prothrombin Time 11.7 SEC (10.9-12.4)
[2024-06-02 08:37] LABS: Ethanol < 10 mg/dL
[2024-06-02 08:39] LABS: Albumin Level 4.1 g/dL (3.5-5.0); Alkaline Phosphatase 81 U/L (39-117); Anion Gap 12 (12-20); Aspartate Amino Transferase 27 U/L (5-37); Bilirubin Total 1.4 mg/dL (0.0-1.0); Blood Urea Nitrogen 14 mg/dL (9-16); Calcium 8.9 mg/dL (8.4-10.2); Carbon Dioxide 26 mmol/L (22-29); Chloride 105 mmol/L (96-108); Estimated Glomerular Filt Rate > 60; Glucose Random 148 mg/dL (60-115); Magnesium 2.1 mg/dL (1.6-2.6); Potassium 3.6 mmol/L (3.3-5.1); Sodium 139 mmol/L (135-145); Total Protein 7.6 g/dL (6.5-8.0)
[2024-06-02 08:44] LABS: Troponin-I High Sensitivity 2.9 ng/L (<3.5-35.0)
[2024-06-02 08:50] LABS: Alanine Aminotransferase 35 U/L (0-40)
[2024-06-02 09:02] LABS: Influenza A PCR NEGATIVE (Negative); Influenza B PCR NEGATIVE (Negative); Resp Syncy Virus RNA Qual PCR NEGATIVE (Negative); SARS COV2 PCR INHOUSE NEGATIVE (Negative)
[2024-06-02 09:58] VITALS: BP 133/81; PULSE 69; RESP 16; O2SAT 97
[2024-06-02 10:00] LABS: Appearance Urine Clear; Color Urine Yellow; Glucose Urine UA Negative (Negative); Leukocyte Esterase Urine Negative (Negative); Nitrite Urine Negative (Negative); PH 5.5 (5.0-9.0); Specific Gravity - Urine 1.015 (1.005-1.025); Urine Blood Negative (Negative); Urine Ketones Negative (Negative); Urine Protein Negative (Neg-Trace)
[2024-06-02 10:15] LABS: Amphetamine Screen Urine Not Detected (Not Detect); Barbiturates, Urine Not Detected (Not Detect); Benzodiazepines Screen Urine Not Detected (Not Detect); Buprenorphine Scr Not Detected (Not Detect); Cannabinoid Screen Urine Not Detected (Not Detect); Cocaine Screen Urine Not Detected (Not Detect); Fentanyl, urine Not Detected (Not Detect); Methadone Screen, Urine Not Detected (Not Detect); Opiate Screen Urine Not Detected (Not Detect); Oxycodone Screen Urine Not Detected (Not Detect); Phencyclidine Screen Urine Not Detected (Not Detect)
[2024-06-02 11:47] VITALS: BP 138/74; PULSE 71; RESP 14; TEMP 36.6; O2SAT 98
== END 2024-06-02 11:50 | disposition home or self-care (01) ==
PROVIDERS: Registered Nurse Emergency; Emergency Provider Emergency Medicine; PCP Emergency Medicine
DX: R26.81 Unsteadiness on feet (principal); I10 Essential (primary) hypertension; Z79.899 Other long term (current) drug therapy; Z03.818 Encounter for observation for suspected exposure to other biological agents ruled out
CPT/HCPCS: 0241U; 36415; 70450; 71045; 80053; 80307; 81003; 83735; 84484; 85025; 85610; 93005; 99284

== ENCOUNTER → 2024-06-02 07:48 | Outpatient (BNV) | payer MEDICARE, MEDICAID, SELFPAY | PROVIDERS: Emergency Provider Emergency Medicine; PCP Emergency Medicine; Visit Provider Radiology Diagnostic Radiology | DX: R53.1 Weakness (principal); R26.81 Unsteadiness on feet | CPT/HCPCS: 70450; 71045 ==

== ENCOUNTER 2024-10-01 08:39 | Outpatient (REF) | payer MEDICARE, MEDICAID, SELFPAY ==
--- NOTE | ~2024-10-01 | XR_ITS ---
EXAMINATION: XR LUMBOSACRAL SPINE CLINICAL INFORMATION: back pain COMPARISON: None available. TECHNIQUE: Three views of the lumbosacral spine. FINDINGS: There is a minimal levoconvex scoliosis, apex at L2-3. There is a normal lordosis. There is no fracture, compression deformity, or suspicious bone lesion. There is a 4 mm degenerative appearing retrolisthesis of L2 on L3. Alignment is otherwise anatomic. Moderate disc degeneration diffusely, most significant at L1-2 and L2-3. Facets are normally aligned. There are degenerative facet changes present notable L4-S1. The sacrum is intact. Minimal degenerative arthritis in the bilateral SI joints. No soft tissue abnormalities. XR/XR lumbar spine 2-3V IMPRESSION: 1. No acute findings of the lumbar spine. 2. Moderate spondylosis as discussed. Electronically signed by: Gray Zaragoza MD 10/01/2024 09:56 AM EDT
--- NOTE | ~2024-10-01 | XR_ITS ---
EXAMINATION: XR THORACIC SPINE CLINICAL INFORMATION: chornic back pain COMPARISON: None available. TECHNIQUE: 3 views of the thoracic spine were obtained. FINDINGS: There is a mild right convex scoliosis, centered at T5. There is a normal thoracic kyphosis. No subluxations. No compression deformity, acute fracture, or suspicious bone lesion. Mild to moderate diffuse disc degeneration present with disc osteophytic spurring most notable in the mid and inferior thoracic spine. Normal facet alignment. The paraspinal soft tissues are unremarkable. XR/XR thoracic spine 3V IMPRESSION: 1. No acute findings of the thoracic spine. 2. Mild to moderate degenerative spondylosis with mild right convex scoliosis. Electronically signed by: Gray Zaragoza MD 10/01/2024 09:54 AM EDT
[2024-10-01 11:29] LABS: Appearance Urine Turbid; Color Urine Dark Yellow; Glucose Urine UA Negative (Negative); Leukocyte Esterase Urine Trace (Negative); Nitrite Urine Negative (Negative); PH 5.5 (5.0-9.0); Specific Gravity - Urine 1.025 (1.005-1.025); UMIC TRIGGER UACC YES; Urine Blood Negative (Negative); Urine Ketones Trace mg/dL (Negative); Urine Protein 30 (1+) mg/dL (Neg-Trace)
[2024-10-01 11:32] LABS: Bacteria Urine None Seen (None Seen); Estimated Average Glucose 131 mg/dL; Hemoglobin A1c % 6.2 % (<6.0); Hyaline Casts Urine 0-2 /LPF (0-2); RBC Urine 0-2 /HPF (0-2); Squamous Epithelial Cell Urine 0-2 /HPF (0-2); WBC Urine 0-5 /HPF (0-5)
[2024-10-01 12:10] LABS: Alanine Aminotransferase 33 U/L (0-40); Albumin Level 4.1 g/dL (3.5-5.0); Alkaline Phosphatase 79 U/L (39-117); Anion Gap 11 (12-20); Aspartate Amino Transferase 28 U/L (5-37); Bilirubin Direct 0.5 mg/dL (0.0-0.5); Bilirubin Total 1.7 mg/dL (0.0-1.0); Blood Urea Nitrogen 12 mg/dL (9-16); Calcium 9.3 mg/dL (8.4-10.2); Carbon Dioxide 32 mmol/L (22-29); Chloride 103 mmol/L (96-108); Cholesterol 83 mg/dL (<200); Estimated Glomerular Filt Rate > 60; Glucose Random 118 mg/dL (60-115); HDL Cholesterol 37 mg/dL (>40); LDL Cholesterol Calculated 28 mg/dL (<100); Potassium 3.6 mmol/L (3.3-5.1); Sodium 142 mmol/L (135-145); Triglycerides 92 mg/dL (<150)
[2024-10-01 12:19] LABS: Microalbum/Creatinine Ratio Ur 14.5 ug/mg cr (<30)
== END 2024-10-01 08:40 | disposition home or self-care (01) ==
LOC: HO.HHCL 08:39
PROVIDERS: Visit Provider Family Medicine
DX: M54.41 Lumbago with sciatica, right side (principal); M54.42 Lumbago with sciatica, left side; E11.9 Type 2 diabetes mellitus without complications; G89.29 Other chronic pain; M51.360 Other intervertebral disc degeneration, lumbar region with discogenic back pain only
CPT/HCPCS: 36415; 72072; 72100; 80048; 80061; 80076; 81001; 82043; 82570; 83036

== ENCOUNTER → 2024-10-01 09:02 | Outpatient (BNV) | payer MEDICARE, MEDICAID, SELFPAY | PROVIDERS: Visit Provider Radiology Diagnostic Radiology | DX: M51.360 Other intervertebral disc degeneration, lumbar region with discogenic back pain only (principal); M51.34 Other intervertebral disc degeneration, thoracic region | CPT/HCPCS: 72072; 72100 ==

== ENCOUNTER 2024-11-22 10:19 | Outpatient (AMB) | payer MEDICARE, MEDICAID, SELFPAY ==
--- NOTE | 2024-11-22 10:22 | MHC.OFFVIS ---
Vital Signs 11/22/24 10:23 Height 5 ft 7 in Weight 156 lb BMI 24.4 BP 128/68 Blood Pressure Location Rt brachial Position Sitting Pulse 86 Pulse Source Pulse Oximeter Pulse Oximetry (%) 96 Oxygen Delivery Method Room Air Intake Visit Reasons: 6m Intake Note: Est pt for mgmt of IBS-C. Eval linzess response. CC; Pt denies any GI sx or concerns at this time. Pt has had a positive response to the increase in linzess dose. Senior Speech Pathologist Required: Yes Senior Speech Pathologist Services: Senior Speech Pathologist Present Senior Speech Pathologist Name: Johnnie [id number] Nico Johnson (GI) Information Interpreted: clinical only Accompanied by: Self / Same As Patient Allergies No Known Allergies (No Known Allergies*) Allergy (Verified 11/22/24 10:22) HPI HPI 6m: Details: LAST VISIT: Constipation Abdominal bloating Plan Reports symptoms are much better with Linzess, however would like to go back to the higher dose if possible. Continue Linzess 145 mcg daily. Increase fluid intake and activity to promote better bowel motility. Patient will return in the office in 1 year, however he will call if he will have any GI concerning symptoms. He is agreeable to this plan and verbalizes understanding of instructions. He was given the opportunity to ask questions and all questions answered. ? Thank you for allowing me to participate in his care New Linzess (linaclotide) 145 mcg PO DAILY 90 caps 4RF NS K59.04 Discontinued linaclotide Discontinued Reason: Doctor's Order 72 mcg PO DAILY 90 caps 2RF TODAY'S VISIT: Patient is here today for follow-up. Patient reports that Linzess was increased to 290 mcg daily. He still will have trouble moving her bowels occasionally. Patient just finished radiation treatment for prostate CA. He sees Urology frequently. Patient denies melena, hematochezia. Reports that occasionally he has to strain to have a bowel movement. Patient denies any abdominal pain or discomfort. Patient reports to have good appetite. Denies acid reflux, dyspepsia, dysphagia or odynophagia. Patient denies any other GI concerning symptoms. [facility] Medical History (Updated 11/22/24 @ 11:27 by Merlyn [facility]) Chronic idiopathic constipation Tubular adenoma HTN (hypertension) Surgical History History of prostate surgery Hx of colonoscopy Family History Father Alzheimer disease Mother Thyroid disease Social History Household Members: Spouse Alcohol intake: never Patient Tobacco Use Status: Never used Tobacco Review of Systems Const Denies weight gain and Denies weight loss ENT Reports no additional complaints, Denies dysphagia and Denies odynophagia Card Reports no additional complaints Resp Reports no additional complaints GI Denies abdominal pain, Denies belching, Denies melena, Denies bloating, Denies change in bowel habits, Reports constipation (Occasional), Denies dysphagia, Denies excessive flatus, Denies dyspepsia, Denies heartburn, Denies diarrhea, Denies loose stools, Denies nausea, Denies odynophagia and Denies vomiting Reports no additional complaints Musc Reports no additional complaints Neuro Reports no additional complaints Psych Reports no additional complaints Endo Reports no additional complaints Physical Exam Const General: healthy appearing, no acute distress and well developed Nutritional Appearance: well nourished Orientation/consciousness: patient oriented x3 Resp Effort & Inspection: normal respiratory effort, able to speak in complete sentences, no tracheal deviation and symmetric chest movement Auscultation: clear to auscultation bilaterally Cardio Rate: regular rate GI Inspection: Yes normal to inspection and No distended Palpation (GI): Soft to palpation, not firm, nontender and No hepatosplenomegaly present Auscultation: normal bowel sounds General: Yes no CVA tenderness Back/Spine/Pelvis Back: no CVA tenderness Skin General skin exam: elasticity normal, turgor normal and dry skin Neuro General: patient oriented x3 Psych Appearance: grossly normal Mental Status: mental status grossly normal Assessment & Plan Assessment & Plan (1) Chronic idiopathic constipation: Code(s): K59.04 - Chronic idiopathic constipation Category: Medical Plan Patient will continue taking Linzess. Increase fluid intake and activity to promote better bowel motility. Patient can add stool softener. Follow-up in 4 months, sooner on as needed basis. He is agreeable to this plan and verbalizes understanding of instructions. He was given the opportunity to ask questions and all questions answered. Thank you for allowing me to participate in his care Medications: New docusate sodium 100 mg PO BEDTIME 90 caps 3RF K59.00 - Constipation, unspecified Refilled linaclotide 290 mcg PO DAILY 90 caps 2RF Coding Level of Care Code Est Pt Level 3 (38336) Diagnoses Chronic idiopathic constipation K59.04 Time Spent (min) 25 Comment 15 minutes spent with patient and additional 10 minutes spent reviewing his records
[2024-11-22 10:23] VITALS: BP 128/68; PULSE 86; O2SAT 96; BMI 24.4
--- OUTSIDE RECORDS SUMMARY | 2024-11-22 11:24 | XMS_ITS | Encounter Summary ---
Author Organization [employer] Address [address] [facility] [address] [place] [address] Care Team Providers Care Plaster Tender Name Role Phone Marga Snider MD Primary Care Provider [phone] Madelyn Berry PharmD Unavailable Matty Robertson MD Unavailable [phone] Merlyn Packer Unavailable Parth Haas Unavailable Encounter Details Date Type Department Care Team (Late st Contact Info) Description 02/03/2023 Abstract [facility] [address] [place], [place] [phone] Marga Snider MD [address] [place], [place] [phone] Preventative health care Social History Tobacco Use [...] as of this encounter Plan of Treatment Upcoming Encounters Date Type Department Care Team (Late st Contact Info) Description 01/05/2025 11:15 AM EDT Office Visit [facility] [address] [place] [phone] Marga Snider MD [address] [place] [phone] documented as of this encounter Goals Goal Patient Goal Type Associated Problems Recent Progress Patient-Stated? Author Blood Pressure < 140/90 Blood Pressure 126/80( 025 11:12 AM EDT) No Madelyn Mcleod PharmD documented as of this encounter Visit Diagnoses Diagnosis Preventative health care Routine general medical examination at a health care facility documented in this encounter Care Teams Plaster Tender Relationship Specialty Start Date End Date Marga Snider MD [address] [place] [phone] PCP - General Family Medicine 12/11/16 Madelyn Berry PharmD [address] [place] [phone] Pharmacist Internal Medicine 02/27/23 09/16/23 Matty Robertson MD [address] [place] [address] Cardiology 03/23/24 Merlyn Packer [address] [place] [address] Gastroenterology 06/08/24 Parth Haas [address] [facility] [place] [address] [phone] Urology 06/08/24 documented as of this encounter
--- OUTSIDE RECORDS SUMMARY | 2024-11-22 11:24 | XMS_ITS | Clinical Summary ---
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 chew 5 Active atorvastatin (LIPITOR) 40 mg tablet Take 1 tablet (40 mg total) by mouth daily. 5 07/30/19 26 Active docusate sodium (Colace) 100 mg capsule Take 1 capsule (100 mg total) by mouth. 9 Active fluticasone propionate (FLONASE) 50 mcg/actuation nasal spray Administer 1 spray into each nostril 1 (one) time each day. 5 Active hydrALAZINE (APRESOLINE) 25 mg tablet Take 1 tablet (25 mg total) by mouth 2 (two) times a day. Active hydroCHLOROthia zide (HYDRODIURIL) 25 mg tablet Take 1 tablet (25 mg total) by mouth 1 (one) time each day in the morning. Active Linzess 145 mcg capsule Take 1 capsule (145 mcg total) by mouth 1 (one) time each day. Active mv-min/folic/K1 /lycopen/lutein (CENTRUM SILVER MEN ORAL) Take by mouth. Activ e linaCLOtide (Linzess) 290 mcg capsule Take 1 capsule (290 mcg total) by mouth 1 (one) time each day before breakfast. Active Active Problems Problem Noted Date Diagnosed Date Hypertension 08/19/2024 Stress incontinence 08/19/2024 Prostate cancer (CMS/HCC V24, CMS/[facility] V28) 08/19 Encounters Date Type Department Care Team Description 11/02/2024 3:19 PM EDT - 11/02/2024 11:59 PM EDT Hospital Encounter [facility]iation [facility] [address] [place] [phone] Veronica Zaragoza NP Prostate cancer ([facility] V24, [facility] V28) (Primary Dx) Discharge Disposition: Home or Self Care 11/01/2024 3:09 PM EDT - 11/01/2024 11:59 PM EDT Hospital Encounter [facility] [address] [place] [phone] Discharge Disposition: Home or Self Care 10/28/2024 1:18 PM EDT - 10/28/2024 11:59 PM EDT Hospital Encounter [facility] [address] [place] [phone] Yessi Luis MD Prostate cancer ([facility] V24, [facility] V28) (Primary Dx) Discharge Disposition: Home or Self Care 10/28/2024 1:07 PM EDT - 10/28/2024 11:59 PM EDT Hospital Encounter [facility]iation [facility]cology [address] [place] [phone] Discharge Disposition: Home or Self Care 10/27/2024 3:04 PM EDT - 10/27/2024 11:59 PM EDT Hospital Encounter [facility] [address] [place] [phone] Discharge Disposition: Home or Self Care 10/26/2024 3:15 PM EDT - 10/26/2024 11:59 PM EDT Hospital Encounter [facility] [address] [place] [phone] Discharge Disposition: Home or Self Care 10/25/2024 2:58 PM EDT - 10/25/2024 11:59 PM EDT Hospital Encounter [facility] [address] [place] [phone] Discharge Disposition: Home or Self Care 10/22/2024 2:57 PM EDT - 10/22/2024 11:59 PM EDT Hospital Encounter [facility] [address] [place] [phone] Discharge Disposition: Home or Self Care 10/22/2024 Telephone [facility] [address] [place] [phone] Teresa Mckeon RN 10/21/2024 2:55 PM EDT - 10/21/2024 11:59 PM EDT Hospital Encounter [facility]cology [address] [place] [phone] Discharge Disposition: Home or Self Care 10/20/2024 2:59 PM EDT - 10/20/2024 11:59 PM EDT Hospital Encounter [facility] [address] [place] [phone] Discharge Disposition: Home or Self Care 10/19/2024 3:10 PM EDT - 10/19/2024 11:59 PM EDT Hospital Encounter [facility] [address] [place] [phone] Yessi Luis MD Prostate cancer (CMS/HCC V24, CMS/HCC V28) (Primary Dx) Discharge Disposition: Home or Self Care 10/19/2024 3:10 PM EDT - 10/19/2024 11:59 PM EDT Hospital Encounter [facility] [address] [place] [phone] Discharge Disposition: Home or Self Care 10/18/2024 2:58 PM EDT - 10/18/2024 11:59 PM EDT Hospital Encounter [facility] [address] [place] [phone] Discharge Disposition: Home or Self Care 10/15/2024 11:00 AM EDT - 10/15/2024 11:59 PM EDT Hospital Encounter [facility] [address] [place] [phone] Discharge Disposition: Home or Self Care 10/14/2024 2:58 PM EDT - 10/14/2024 11:59 PM EDT Hospital Encounter [facility] [address] [place] [phone] Discharge Disposition: Home or Self Care 10/13/2024 3:03 PM EDT - 10/13/2024 11:59 PM EDT Hospital Encounter [facility] [address] [place] [phone] Discharge Disposition: Home or Self Care 10/12/2024 3:20 PM EDT - 10/12/2024 11:59 PM EDT Hospital Encounter [facility] [address] [place] [phone] Yessi Luis MD Prostate cancer (CMS/HCC V24, CMS/HCC V28) (Primary Dx) Discharge Disposition: Home or Self Care 10/12/2024 2:59 PM EDT - 10/12/2024 11:59 PM EDT Hospital Encounter [facility] [address] [place] [phone] Discharge Disposition: Home or Self Care 10/11/2024 3:00 PM EDT - 10/11/2024 11:59 PM EDT Hospital Encounter [facility] [address] [place] [phone] Discharge Disposition: Home or Self Care 10/08/2024 3:00 PM EDT - 10/08/2024 11:59 PM EDT Hospital Encounter [facility] [address] [place] [phone] Discharge Disposition: Home or Self Care 10/07/2024 3:03 PM EDT - 10/07/2024 11:59 PM EDT Hospital Encounter [facility] [address] [place] [phone] Discharge Disposition: Home or Self Care 10/07/2024 Telephone [facility] [address] [place] [phone] Veronica Zaragoza NP 10/06/2024 2:58 PM EDT - 10/06/2024 11:59 PM EDT Hospital Encounter [facility] [address] [place] [phone] Discharge Disposition: Home or Self Care 10/05/2024 3:19 PM EDT - 10/05/2024 11:59 PM EDT Hospital Encounter [facility] [address] [place] [phone] Yessi Luis MD Prostate cancer (CMS/HCC V24, CMS/HCC V28) (Primary Dx) Discharge Disposition: Home or Self Care 10/05/2024 2:57 PM EDT - 10/05/2024 11:59 PM EDT Hospital Encounter [facility] [address] [place] [phone] Discharge Disposition: Home or Self Care 10/04/2024 2:15 PM EDT - 10/04/2024 11:59 PM EDT Hospital Encounter [facility] [address] [place] [phone] Discharge Disposition: Home or Self Care 10/01/2024 3:02 PM EDT - 10/01/2024 11:59 PM EDT Hospital Encounter [facility] [address] [place] [phone] Discharge Disposition: Home or Self Care 09/30/2024 3:14 PM EDT - 09/30/2024 11:59 PM EDT Hospital Encounter [facility] [address] [place] [phone] Discharge Disposition: Home or Self Care 09/29/2024 3:03 PM EDT - 09/29/2024 11:59 PM EDT Hospital Encounter [facility] [address] [place] [phone] Discharge Disposition: Home or Self Care 09/28/2024 3:18 PM EDT - 09/28/2024 11:59 PM EDT Hospital Encounter [facility] [address] [place] [phone] Yessi Luis MD Prostate cancer (CMS/HCC V24, CMS/HCC V28) (Primary Dx) Discharge Disposition: Home or Self Care 09/28/2024 3:03 PM EDT - 09/28/2024 11:59 PM EDT Hospital Encounter [facility] [address] [place] [phone] Discharge Disposition: Home or Self Care 09/27/2024 1:49 PM EDT - 09/27/2024 11:59 PM EDT Hospital Encounter [facility] [address] [place] [phone] Discharge Disposition: Home or Self Care 09/24/2024 3:03 PM EDT - 09/24/2024 11:59 PM EDT Hospital Encounter [facility] [address] [place] [phone] Discharge Disposition: Home or Self Care 09/23/2024 8:00 AM EDT - 09/23/2024 11:59 PM EDT Hospital Encounter [facility] [address] [place] [phone] Discharge Disposition: Home or Self Care 09/22/2024 8:05 AM EDT - 09/22/2024 11:59 PM EDT Hospital Encounter [facility] [address] [place] [phone] Yessi Luis MD Prostate cancer (CMS/HCC V24, CMS/HCC V28) (Primary Dx) Discharge Disposition: Home or Self Care 09/22/2024 7:51 AM EDT - 09/22/2024 11:59 PM EDT Hospital Encounter [facility] [address] [place] [phone] Discharge Disposition: Home or Self Care 09/21/2024 7:45 AM EDT - 09/21/2024 11:59 PM EDT Hospital Encounter [facility] [address] [place] [phone] Discharge Disposition: Home or Self Care 09/17/2024 7:47 AM EDT - 09/17/2024 11:59 PM EDT Hospital Encounter [facility] [address] [place] [phone] Discharge Disposition: Home or Self Care 09/16/2024 7:45 AM EDT - 09/16/2024 11:59 PM EDT Hospital Encounter [facility] [address] [place] [phone] Discharge Disposition: Home or Self Care 09/15/2024 11:13 AM EDT - 09/15/2024 11:59 PM EDT Hospital Encounter [facility] [address] [place] [phone] Yessi Luis MD Discharge Disposition: Home or Self Care 09/15/2024 10:47 AM EDT - 09/15/2024 11:59 PM EDT Hospital Encounter [facility] [address] [place] [phone] Discharge Disposition: Home or Self Care 09/08/2024 Telephone [facility] [address] [place] [phone] Teresa Mckeon RN 09/03/2024 8:18 AM EDT - 09/03/2024 11:59 PM EDT Hospital Encounter [facility] [address] [place] [phone] Discharge Disposition: Home or Self Care 09/01/2024 8:55 AM EDT - 09/01/2024 11:59 PM EDT Hospital Encounter [facility] [address] [place] [phone] Yessi Luis MD Prostate cancer (CMS/HCC V24, CMS/HCC V28) (Primary Dx) Discharge Disposition: Home or Self Care 09/01/2024 7:52 AM EDT - 09/01/2024 11:59 PM EDT Hospital Encounter [facility] [address] [place] [phone] Discharge Disposition: Home or Self Care 08/26/2024 10:36 AM EDT - 08/26/2024 11:59 PM EDT Hospital Encounter [facility] [address] [place] [phone] Yessi Luis MD Prostate cancer ([facility] V24, [facility] V28) (Primary Dx) Discharge Disposition: Home or Self Care 08/26/2024 10:25 AM EDT - 08/26/2024 11:59 PM EDT Hospital Encounter [facility] [address] [place] [phone] Discharge Disposition: Home or Self Care 08/25/2024 Telephone [facility] [address] [place] [phone] Isidra Pacheco MA from Last 3 Months Family History Medical History Relation Name Comments Cancer Neg Hx Social History Tobacco Use Types Packs/Day Years Used Date Smoking Tobacco: Never Smokeless Tobacco: Never Tobacco Cessation:Counseling Given: Not Answered Alcohol Use Standard Drinks/Week Comments Not Currently 0 (1 standard drink = 0.6 oz pur e alcohol) Sex and Gender Information Value Date Recorded Sex Assigned at Not on file Legal Sex Male 10:35 AM EDT Gender Identity Not on file Sexual Orientation Not on file Occupation Industry Job Start Date Job End Date Retired Not on file Not on file Not on file Obstetrics History Last Filed Vital Signs Vital Sign Reading Time Taken Comments Blood Pressure 127/56 08/26/2024 10:38 AM EDT Pulse 76 08/26/2024 10:38 AM EDT Temperature - - Respiratory Rate - - Oxygen Saturation 100% 08/26/2024 10: 38 AM EDT Inhaled Oxygen Concentration - - Weight 74.8 kg (164 lb 12.8 oz) 025 10:38 AM EDT Height 170.2 cm (5' 7 ) 08/26/2024 10:3 8 AM EDT Body Mass Index 25.81 08/26/2024 10:38 AM EDT Plan of Treatment Upcoming Encounters Date Type Department Care Team (Late st Contact Info) Description 12/10/2024 1:30 PM EDT Appointment [facility]iation [facility]cology [address] [place] [phone] Veronica Zaragoza NP [address] [place] [address] Health Maintenance Due Date Last Done Comments Diabetes: Annual Foot Exam 02/05/1960 Diabetes: Annual Retina Eye Exam 02/05/1960 Depression Screening 04/28/2024 Colorectal Cancer Screening: Colonoscopy 07/29/2024 Medicare Annual Wellness Visit 07/29/2024 Social Influencers of Health Screening 07/29/2024 COVID-19 Vaccine (8 - Moderna risk season) 2024 02/19/2024, 05/16/2023, 07/10/2022, Additional history exists Diabetes: Annual Urine Albumin-Creatinine Ratio (uACR) 10/01/2024 Influenza Vaccine (#1) 2024 , 02/11/2023, 01/14/2022, Additional history exists Diabetes: Blood Sugar Control Test (HGBA1C) 04/02/2025 10/01/2024, 09/29/2024, 03/17/2024 Falls Risk Assessment 08/26/2025 08/26/2024 Diabetes: Annual GFR (Glomerular Filtration Rate) 10/01/2025 10/01/2024, 06/02/2024 Hypertension/CHF/CAD Annual BMP Blood Test 10/01/2025 10/01/2024, 06/02/2024 Cholesterol Screening (Lipid Panel) 10/01/2029 10/01/2024, 03/17/2024 DTaP,Tdap,and Td Vaccines (3 - Td or Tdap) 09/29/2034 09/29/2024, 09/21/2014 Zoster Vaccines Completed 11/23/2021, 08/27, 03/17/2012, Additional history exists Pneumococcal Vaccine: 50+ Years Completed 01/14/2022, 04/08/2018 Hepatitis C Screening Completed 07/17/2022 Hepatitis B Vaccines Completed 03/18/2023, 10/16/2022, 07/10/2022 RSV Immunization Adult Patients Completed 07/07/2023 HIB Vaccines Aged Out No longer eligi [...] on patient's age to complete this topic MMR Vaccines Aged Out No longer eligi ble based on patient's age to complete this topic Meningococcal ACWY Vaccine Aged Out N o longer eligible based on patient's age to complete this topic Meningococcal B Vaccine Aged Out No l onger eligible based on patient's age to complete this topic RSV Immunization Patients Under 20 months Aged Out No longer eligible based on patient's age to complete this topic Varicella Vaccines Aged Out No longer eligible based on patient's age to complete this topic Procedures Procedure Name Priority Date/Time Associated Diagnosis Comments RAD ONC MSQ TREATMENT SUMMARY Routine 11/02/2024 3:19 PM EDT RAD ONC MSQ TREATMENT SUMMARY Routine 11/01/2024 3:33 PM EDT RAD ONC MSQ TREATMENT SUMMARY Routine 10/28/2024 1:18 PM EDT RAD ONC MSQ TREATMENT SUMMARY Routine 10/27/2024 3:20 PM EDT RAD ONC MSQ TREATMENT SUMMARY Routine 10/26/2024 3:22 PM EDT RAD ONC MSQ TREATMENT SUMMARY Routine 10/25/2024 3:22 PM EDT RAD ONC MSQ TREATMENT SUMMARY Routine 10/22/2024 3:21 PM EDT RAD ONC MSQ TREATMENT SUMMARY Routine 10/21/2024 3:16 PM EDT RAD ONC MSQ TREATMENT SUMMARY Routine 10/20/2024 3:15 PM EDT RAD ONC MSQ TREATMENT SUMMARY Routine 10/19/2024 3:10 PM EDT RAD ONC MSQ TREATMENT SUMMARY Routine 10/18/2024 3:21 PM EDT RAD ONC MSQ TREATMENT SUMMARY Routine 10/15/2024 11:23 AM EDT RAD ONC MSQ TREATMENT SUMMARY Routine 10/14/2024 3:11 PM EDT RAD ONC MSQ TREATMENT SUMMARY Routine 10/13/2024 3:16 PM EDT RAD ONC MSQ TREATMENT SUMMARY Routine 10/12/2024 3:25 PM EDT RAD ONC MSQ TREATMENT SUMMARY Routine 10/11/2024 3:24 PM EDT RAD ONC MSQ TREATMENT SUMMARY Routine 10/08/2024 3:14 PM EDT RAD ONC MSQ TREATMENT SUMMARY Routine 10/06/2024 3:27 PM EDT RAD ONC MSQ TREATMENT SUMMARY Routine 10/05/2024 3:19 PM EDT RAD ONC MSQ TREATMENT SUMMARY Routine 10/04/2024 2:38 PM EDT RAD ONC MSQ TREATMENT SUMMARY Routine 10/01/2024 3:44 PM EDT RAD ONC MSQ TREATMENT SUMMARY Routine 09/30/2024 3:28 PM EDT RAD ONC MSQ TREATMENT SUMMARY Routine 09/29/2024 3:15 PM EDT RAD ONC MSQ TREATMENT SUMMARY Routine 09/28/2024 3:18 PM EDT RAD ONC MSQ TREATMENT SUMMARY Routine 09/27/2024 2:08 PM EDT RAD ONC MSQ TREATMENT SUMMARY Routine 09/24/2024 3:22 PM EDT RAD ONC MSQ TREATMENT SUMMARY Routine 09/23/2024 9:17 AM EDT RAD ONC MSQ TREATMENT SUMMARY Routine 09/22/2024 8:13 AM EDT RAD ONC MSQ TREATMENT SUMMARY Routine 09/21/2024 8:34 AM EDT RAD ONC MSQ TREATMENT SUMMARY Routine 09/17/2024 8:04 AM EDT RAD ONC MSQ TREATMENT SUMMARY Routine 09/16/2024 8:15 AM EDT RAD ONC MSQ TREATMENT SUMMARY Routine 09/15/2024 11:13 AM EDT from Last 3 Months Results * Rad Onc Msq Treatment Summary (11/02/2024 3:19 PM EDT) Treatment Site prostate bed MO SAIQ RADIATION ONCOLOGY Course Number 1 MOSAIQ RADIATION ONCOLOGY Prescribed Fractional Dose 200 cGray MOSAIQ RADIATION ONCOLOGY Prescribed Total Dose 6,600 cGray MOSAIQ RADIATION ONCOLOGY Actual Fractions Delivered 33 MOSAIQ RADIATION ONCOLOGY Actual Session Delivered Dose 200 cGray MOSAIQ RADIATION ONCOLOGY Actual Total Dose 6,600 cGray MOSAIQ RADIATION ONCOLOGY Prescribed Technique 2 arc VMAT MOSAIQ RADIATION ONCOLOGY Elapsed Days 48 MOSAIQ RADIATION ONCOLOGY Start Date 09/15/2024 MOSAIQ RADIATION ONCOLOGY Last Date 11/02/2024 MOSAIQ RADIATION ONCOLOGY Prescribed Number of Fractions 33 MOSAIQ RADIATION ONCOLOGY 11/02/2024 3:19 PM EDT Physician Radiation Oncology MD RADIATION ONCOLO GY ORDERABLES Final Result MOSAIQ RADIATION ONCOLOGY * Rad Onc Msq Treatment Summary (11/01/2024 3:33 PM EDT) Treatment Site prostate bed MO SAIQ RADIATION ONCOLOGY Course Number 1 MOSAIQ RADIATION ONCOLOGY Prescribed Fractional Dose 200 cGray MOSAIQ RADIATION ONCOLOGY Prescribed Total Dose 6,600 cGray MOSAIQ RADIATION ONCOLOGY Actual Fractions Delivered 32 MOSAIQ RADIATION ONCOLOGY Actual Session Delivered Dose 200 cGray MOSAIQ RADIATION ONCOLOGY Actual Total Dose 6,400 cGray MOSAIQ RADIATION ONCOLOGY Prescribed Technique 2 arc VMAT MOSAIQ RADIATION ONCOLOGY Elapsed Days 47 MOSAIQ RADIATION ONCOLOGY Start Date 09/15/2024 MOSAIQ RADIATION ONCOLOGY Last Date 11/01/2024 MOSAIQ RADIATION ONCOLOGY Prescribed Number of Fractions 33 MOSAIQ RADIATION ONCOLOGY 11/01/2024 3:33 PM EDT Physician Radiation Oncology RADIATION ONCOLO GY ORDERABLES Final Result MOSAIQ RADIATION ONCOLOGY * Rad Onc Msq Treatment Summary (10/28/2024 1:18 PM EDT) Treatment Site prostate bed MO SAIQ RADIATION ONCOLOGY Course Number 1 MOSAIQ RADIATION ONCOLOGY Prescribed Fractional Dose 200 cGray MOSAIQ RADIATION ONCOLOGY Prescribed Total Dose 6,600 cGray MOSAIQ RADIATION ONCOLOGY Actual Fractions Delivered 31 MOSAIQ RADIATION ONCOLOGY Actual Session Delivered Dose 200 cGray MOSAIQ RADIATION ONCOLOGY Actual Total Dose 6,200 cGray MOSAIQ RADIATION ONCOLOGY Prescribed Technique 2 arc VMAT MOSAIQ RADIATION ONCOLOGY Elapsed Days 43 MOSAIQ RADIATION ONCOLOGY Start Date 09/15/2024 MOSAIQ RADIATION ONCOLOGY Last Date 10/28/2024 MOSAIQ RADIATION ONCOLOGY Prescribed Number of Fractions 33 MOSAIQ RADIATION ONCOLOGY 10/28/2024 1:18 PM EDT Physician Radiation Oncology RADIATION ONCOLO GY ORDERABLES Final Result MOSAIQ RADIATION ONCOLOGY * Rad Onc Msq Treatment Summary (10/27/2024 3:20 PM EDT) Pathologist [facility] Treatment Site prostate bed MO SAIQ RADIATION ONCOLOGY Course Number 1 MOSAIQ RADIATION ONCOLOGY Prescribed Fractional Dose 200 cGray MOSAIQ RADIATION ONCOLOGY Prescribed Total Dose 6,600 cGray MOSAIQ RADIATION ONCOLOGY Actual Fractions Delivered 30 MOSAIQ RADIATION ONCOLOGY Actual Session Delivered Dose 200 cGray MOSAIQ RADIATION ONCOLOGY Actual Total Dose 6,000 cGray MOSAIQ RADIATION ONCOLOGY Prescribed Technique 2 arc VMAT MOSAIQ RADIATION ONCOLOGY Elapsed Days 42 MOSAIQ RADIATION ONCOLOGY Start Date 09/15/2024 MOSAIQ RADIATION ONCOLOGY Last Date 10/27/2024 MOSAIQ RADIATION ONCOLOGY Prescribed Number of Fractions 33 MOSAIQ RADIATION ONCOLOGY 10/27/2024 3:20 PM EDT Physician Radiation Oncology RADIATION ONCOLO GY ORDERABLES Final Result MOSAIQ RADIATION ONCOLOGY * Rad Onc Msq Treatment Summary (10/26/2024 3:22 PM EDT) Treatment Site prostate bed MO SAIQ RADIATION ONCOLOGY Course Number 1 MOSAIQ RADIATION ONCOLOGY Prescribed Fractional Dose 200 cGray MOSAIQ RADIATION ONCOLOGY Prescribed Total Dose 6,600 cGray MOSAIQ RADIATION ONCOLOGY Actual Fractions Delivered 29 MOSAIQ RADIATION ONCOLOGY Actual Session Delivered Dose 200 cGray MOSAIQ RADIATION ONCOLOGY Actual Total Dose 5,800 cGray MOSAIQ RADIATION ONCOLOGY Prescribed Technique 2 arc VMAT MOSAIQ RADIATION ONCOLOGY Elapsed Days 41 MOSAIQ RADIATION ONCOLOGY Start Date 09/15/2024 MOSAIQ RADIATION ONCOLOGY Last Date 10/26/2024 MOSAIQ RADIATION ONCOLOGY Prescribed Number of Fractions 33 MOSAIQ RADIATION ONCOLOGY 10/26/2024 3:22 PM EDT Physician Radiation Oncology RADIATION ONCMOSHE GY ORDERABLES Final Result Performing Organization Address City/[facility]/ZIP Co de Phone Number MOSAIQ RADIATION ONCOLOGY * Rad Onc Msq Treatment Summary (10/25/2024 3:22 PM EDT) Treatment Site prostate bed MO SAIQ RADIATION ONCOLOGY Course Number 1 MOSAIQ RADIATION ONCOLOGY Prescribed Fractional Dose 200 cGray MOSAIQ RADIATION ONCOLOGY Prescribed Total Dose 6,600 cGray MOSAIQ RADIATION ONCOLOGY Actual Fractions Delivered 28 MOSAIQ RADIATION ONCOLOGY Actual Session Delivered Dose 200 cGray MOSAIQ RADIATION ONCOLOGY Actual Total Dose 5,600 cGray MOSAIQ RADIATION ONCOLOGY Prescribed Technique 2 arc VMAT MOSAIQ RADIATION ONCOLOGY Elapsed Days 40 MOSAIQ RADIATION ONCOLOGY Start Date 09/15/2024 MOSAIQ RADIATION ONCOLOGY Last Date 10/25/2024 MOSAIQ RADIATION ONCOLOGY Prescribed Number of Fractions 33 MOSAIQ RADIATION ONCOLOGY 10/25/2024 3:22 PM EDT Physician Radiation Oncology RADIATION ONCMOSHE GY ORDERABLES Final Result MOSAIQ RADIATION ONCOLOGY * Rad Onc Msq Treatment Summary (10/22/2024 3:21 PM EDT) Treatment Site prostate bed MO SAIQ RADIATION ONCOLOGY Course Number 1 MOSAIQ RADIATION ONCOLOGY Prescribed Fractional Dose 200 cGray MOSAIQ RADIATION ONCOLOGY Prescribed Total Dose 6,600 cGray MOSAIQ RADIATION ONCOLOGY Actual Fractions Delivered 27 MOSAIQ RADIATION ONCOLOGY Actual Session Delivered Dose 200 cGray MOSAIQ RADIATION ONCOLOGY Actual Total Dose 5,400 cGray MOSAIQ RADIATION ONCOLOGY Prescribed Technique 2 arc VMAT MOSAIQ RADIATION ONCOLOGY Elapsed Days 37 MOSAIQ RADIATION ONCOLOGY Start Date 09/15/2024 MOSAIQ RADIATION ONCOLOGY Last Date 10/22/2024 MOSAIQ RADIATION ONCOLOGY Prescribed Number of Fractions 33 MOSAIQ RADIATION ONCOLOGY 10/22/2024 3:21 PM EDT Physician Radiation Oncology RADIATION ONCMOSHE GY ORDERABLES Final Result MOSAIQ RADIATION ONCOLOGY * Rad Onc Msq Treatment Summary (10/21/2024 3:16 PM EDT) Treatment Site prostate bed MO SAIQ RADIATION ONCOLOGY Course Number 1 MOSAIQ RADIATION ONCOLOGY Prescribed Fractional Dose 200 cGray MOSAIQ RADIATION ONCOLOGY Prescribed Total Dose 6,600 cGray MOSAIQ RADIATION ONCOLOGY Actual Fractions Delivered 26 MOSAIQ RADIATION ONCOLOGY Actual Session Delivered Dose 200 cGray MOSAIQ RADIATION ONCOLOGY Actual Total Dose 5,200 cGray MOSAIQ RADIATION ONCOLOGY Prescribed Technique 2 arc VMAT MOSAIQ RADIATION ONCOLOGY Elapsed Days 36 MOSAIQ RADIATION ONCOLOGY Start Date 09/15/2024 MOSAIQ RADIATION ONCOLOGY Last Date 10/21/2024 MOSAIQ RADIATION ONCOLOGY Prescribed Number of Fractions 33 MOSAIQ RADIATION ONCOLOGY 10/21/2024 3:16 PM EDT Physician Radiation Oncology RADIATION ONCMOSHE GY ORDERABLES Final Result MOSAIQ RADIATION ONCOLOGY * Rad Onc Msq Treatment Summary (10/20/2024 3:15 PM EDT) Treatment Site prostate bed MO SAIQ RADIATION ONCOLOGY Course Number 1 MOSAIQ RADIATION ONCOLOGY Prescribed Fractional Dose 200 cGray MOSAIQ RADIATION ONCOLOGY Prescribed Total Dose 6,600 cGray MOSAIQ RADIATION ONCOLOGY Actual Fractions Delivered 25 MOSAIQ RADIATION ONCOLOGY Actual Session Delivered Dose 200 cGray MOSAIQ RADIATION ONCOLOGY Actual Total Dose 5,000 cGray MOSAIQ RADIATION ONCOLOGY Prescribed Technique 2 arc VMAT MOSAIQ RADIATION ONCOLOGY Elapsed Days 35 MOSAIQ RADIATION ONCOLOGY Start Date 09/15/2024 MOSAIQ RADIATION ONCOLOGY Last Date 10/20/2024 MOSAIQ RADIATION ONCOLOGY Prescribed Number of Fractions 33 MOSAIQ RADIATION ONCOLOGY 10/20/2024 3:15 PM EDT Physician Radiation Oncology RADIATION ONCMOSHE GY ORDERABLES Final Result MOSAIQ RADIATION ONCOLOGY * Rad Onc Msq Treatment Summary (10/19/2024 3:10 PM EDT) Treatment Site prostate bed MO SAIQ RADIATION ONCOLOGY Course Number 1 MOSAIQ RADIATION ONCOLOGY Prescribed Fractional Dose 200 cGray MOSAIQ RADIATION ONCOLOGY Prescribed Total Dose 6,600 cGray MOSAIQ RADIATION ONCOLOGY Actual Fractions Delivered 24 MOSAIQ RADIATION ONCOLOGY Actual Session Delivered Dose 200 cGray MOSAIQ RADIATION ONCOLOGY Actual Total Dose 4,800 cGray MOSAIQ RADIATION ONCOLOGY Prescribed Technique 2 arc VMAT MOSAIQ RADIATION ONCOLOGY Elapsed Days 34 MOSAIQ RADIATION ONCOLOGY Start Date 09/15/2024 MOSAIQ RADIATION ONCOLOGY Last Date 10/19/2024 MOSAIQ RADIATION ONCOLOGY Prescribed Number of Fractions 33 MOSAIQ RADIATION ONCOLOGY 10/19/2024 3:10 PM EDT Physician Radiation Oncology RADIATION ONCMOSHE GY ORDERABLES Final Result MOSAIQ RADIATION ONCOLOGY * Rad Onc Msq Treatment Summary (10/18/2024 3:21 PM EDT) Treatment Site prostate bed MO SAIQ RADIATION ONCOLOGY Course Number 1 MOSAIQ RADIATION ONCOLOGY Prescribed Fractional Dose 200 cGray MOSAIQ RADIATION ONCOLOGY Prescribed Total Dose 6,600 cGray MOSAIQ RADIATION ONCOLOGY Actual Fractions Delivered 23 MOSAIQ RADIATION ONCOLOGY Actual Session Delivered Dose 200 cGray MOSAIQ RADIATION ONCOLOGY Actual Total Dose 4,600 cGray MOSAIQ RADIATION ONCOLOGY Prescribed Technique 2 arc VMAT MOSAIQ RADIATION ONCOLOGY Elapsed Days 33 MOSAIQ RADIATION ONCOLOGY Start Date 09/15/2024 MOSAIQ RADIATION ONCOLOGY Last Date 10/18/2024 MOSAIQ RADIATION ONCOLOGY Prescribed Number of Fractions 33 MOSAIQ RADIATION ONCOLOGY 10/18/2024 3:21 PM EDT Physician Radiation Oncology RADIATION ONCOLO GY ORDERABLES Final Result MOSAIQ RADIATION ONCOLOGY * Rad Onc Msq Treatment Summary (10/15/2024 11:23 AM EDT) Treatment Site prostate bed MO SAIQ RADIATION ONCOLOGY Course Number 1 MOSAIQ RADIATION ONCOLOGY Prescribed Fractional Dose 200 cGray MOSAIQ RADIATION ONCOLOGY Prescribed Total Dose 6,600 cGray MOSAIQ RADIATION ONCOLOGY Actual Fractions Delivered 22 MOSAIQ RADIATION ONCOLOGY Actual Session Delivered Dose 200 cGray MOSAIQ RADIATION ONCOLOGY Actual Total Dose 4,400 cGray MOSAIQ RADIATION ONCOLOGY Prescribed Technique 2 arc VMAT MOSAIQ RADIATION ONCOLOGY Elapsed Days 30 MOSAIQ RADIATION ONCOLOGY Start Date 09/15/2024 MOSAIQ RADIATION ONCOLOGY Last Date 10/15/2024 MOSAIQ RADIATION ONCOLOGY Prescribed Number of Fractions 33 MOSAIQ RADIATION ONCOLOGY 10/15/2024 11:2 3 AM EDT Physician Radiation Oncology RADIATION ONCOLO GY ORDERABLES Final Result MOSAIQ RADIATION ONCOLOGY * Rad Onc Msq Treatment Summary (10/14/2024 3:11 PM EDT) Treatment Site prostate bed MO SAIQ RADIATION ONCOLOGY Course Number 1 MOSAIQ RADIATION ONCOLOGY Prescribed Fractional Dose 200 cGray MOSAIQ RADIATION ONCOLOGY Prescribed Total Dose 6,600 cGray MOSAIQ RADIATION ONCOLOGY Actual Fractions Delivered 21 MOSAIQ RADIATION ONCOLOGY Actual Session Delivered Dose 200 cGray MOSAIQ RADIATION ONCOLOGY Actual Total Dose 4,200 cGray MOSAIQ RADIATION ONCOLOGY Prescribed Technique 2 arc VMAT MOSAIQ RADIATION ONCOLOGY Elapsed Days 29 MOSAIQ RADIATION ONCOLOGY Start Date 09/15/2024 MOSAIQ RADIATION ONCOLOGY Last Date 10/14/2024 MOSAIQ RADIATION ONCOLOGY Prescribed Number of Fractions 33 MOSAIQ RADIATION ONCOLOGY 10/14/2024 3:11 PM EDT Physician Radiation Oncology RADIATION ONCOLO GY ORDERABLES Final Result MOSAIQ RADIATION ONCOLOGY * Rad Onc Msq Treatment Summary (10/13/2024 3:16 PM EDT) Treatment Site prostate bed MO SAIQ RADIATION ONCOLOGY Course Number 1 MOSAIQ RADIATION ONCOLOGY Prescribed Fractional Dose 200 cGray MOSAIQ RADIATION ONCOLOGY Prescribed Total Dose 6,600 cGray MOSAIQ RADIATION ONCOLOGY Actual Fractions Delivered 20 MOSAIQ RADIATION ONCOLOGY Actual Session Delivered Dose 200 cGray MOSAIQ RADIATION ONCOLOGY Actual Total Dose 4,000 cGray MOSAIQ RADIATION ONCOLOGY Prescribed Technique 2 arc VMAT MOSAIQ RADIATION ONCOLOGY Elapsed Days 28 MOSAIQ RADIATION ONCOLOGY Start Date 09/15/2024 MOSAIQ RADIATION ONCOLOGY Last Date 10/13/2024 MOSAIQ RADIATION ONCOLOGY Prescribed Number of Fractions 33 MOSAIQ RADIATION ONCOLOGY 10/13/2024 3:16 PM EDT Physician Radiation Oncology RADIATION ONCMOSHE GY ORDERABLES Final Result MOSAIQ RADIATION ONCOLOGY * Rad Onc Msq Treatment Summary (10/12/2024 3:25 PM EDT) Pathologist [facility] Treatment Site prostate bed MO SAIQ RADIATION ONCOLOGY Course Number 1 MOSAIQ RADIATION ONCOLOGY Prescribed Fractional Dose 200 cGray MOSAIQ RADIATION ONCOLOGY Prescribed Total Dose 6,600 cGray MOSAIQ RADIATION ONCOLOGY Actual Fractions Delivered 19 MOSAIQ RADIATION ONCOLOGY Actual Session Delivered Dose 200 cGray MOSAIQ RADIATION ONCOLOGY Actual Total Dose 3,800 cGray MOSAIQ RADIATION ONCOLOGY Prescribed Technique 2 arc VMAT MOSAIQ RADIATION ONCOLOGY Elapsed Days 27 MOSAIQ RADIATION ONCOLOGY Start Date 09/15/2024 MOSAIQ RADIATION ONCOLOGY Last Date 10/12/2024 MOSAIQ RADIATION ONCOLOGY Prescribed Number of Fractions 33 MOSAIQ RADIATION ONCOLOGY 10/12/2024 3:25 PM EDT Physician Radiation Oncology RADIATION ONCMOSHE GY ORDERABLES Final Result MOSAIQ RADIATION ONCOLOGY * Rad Onc Msq Treatment Summary (10/11/2024 3:24 PM EDT) Treatment Site prostate bed MO SAIQ RADIATION ONCOLOGY Course Number 1 MOSAIQ RADIATION ONCOLOGY Prescribed Fractional Dose 200 cGray MOSAIQ RADIATION ONCOLOGY Prescribed Total Dose 6,600 cGray MOSAIQ RADIATION ONCOLOGY Actual Fractions Delivered 18 MOSAIQ RADIATION ONCOLOGY Actual Session Delivered Dose 200 cGray MOSAIQ RADIATION ONCOLOGY Actual Total Dose 3,600 cGray MOSAIQ RADIATION ONCOLOGY Prescribed Technique 2 arc VMAT MOSAIQ RADIATION ONCOLOGY Elapsed Days 26 MOSAIQ RADIATION ONCOLOGY Start Date 09/15/2024 MOSAIQ RADIATION ONCOLOGY Last Date 10/11/2024 MOSAIQ RADIATION ONCOLOGY Prescribed Number of Fractions 33 MOSAIQ RADIATION ONCOLOGY 10/11/2024 3:24 PM EDT Physician Radiation Oncology RADIATION ONCOLO GY ORDERABLES Final Result MOSAIQ RADIATION ONCOLOGY * Rad Onc Msq Treatment Summary (10/08/2024 3:14 PM EDT) Treatment Site prostate bed MO SAIQ RADIATION ONCOLOGY Course Number 1 MOSAIQ RADIATION ONCOLOGY Prescribed Fractional Dose 200 cGray MOSAIQ RADIATION ONCOLOGY Prescribed Total Dose 6,600 cGray MOSAIQ RADIATION ONCOLOGY Actual Fractions Delivered 17 MOSAIQ RADIATION ONCOLOGY Actual Session Delivered Dose 200 cGray MOSAIQ RADIATION ONCOLOGY Actual Total Dose 3,400 cGray MOSAIQ RADIATION ONCOLOGY Prescribed Technique 2 arc VMAT MOSAIQ RADIATION ONCOLOGY Elapsed Days 23 MOSAIQ RADIATION ONCOLOGY Start Date 09/15/2024 MOSAIQ RADIATION ONCOLOGY Last Date 10/08/2024 MOSAIQ RADIATION ONCOLOGY Prescribed Number of Fractions 33 MOSAIQ RADIATION ONCOLOGY 10/08/2024 3:14 PM EDT Physician Radiation Oncology RADIATION ONCMOSHE GY ORDERABLES Final Result MOSAIQ RADIATION ONCOLOGY * Rad Onc Msq Treatment Summary (10/06/2024 3:27 PM EDT) Treatment Site prostate bed MO SAIQ RADIATION ONCOLOGY Course Number 1 MOSAIQ RADIATION ONCOLOGY Prescribed Fractional Dose 200 cGray MOSAIQ RADIATION ONCOLOGY Prescribed Total Dose 6,600 cGray MOSAIQ RADIATION ONCOLOGY Actual Fractions Delivered 15 MOSAIQ RADIATION ONCOLOGY Actual Session Delivered Dose 200 cGray MOSAIQ RADIATION ONCOLOGY Actual Total Dose 3,000 cGray MOSAIQ RADIATION ONCOLOGY Prescribed Technique 2 arc VMAT MOSAIQ RADIATION ONCOLOGY Elapsed Days 21 MOSAIQ RADIATION ONCOLOGY Start Date 09/15/2024 MOSAIQ RADIATION ONCOLOGY Last Date 10/06/2024 MOSAIQ RADIATION ONCOLOGY Prescribed Number of Fractions 33 MOSAIQ RADIATION ONCOLOGY 10/06/2024 3:27 PM EDT Physician Radiation Oncology RADIATION ONCMOSHE GY ORDERABLES Final Result MOSAIQ RADIATION ONCOLOGY * Rad Onc Msq Treatment Summary (10/05/2024 3:19 PM EDT) Treatment Site prostate bed MO SAIQ RADIATION ONCOLOGY Course Number 1 MOSAIQ RADIATION ONCOLOGY Prescribed Fractional Dose 200 cGray MOSAIQ RADIATION ONCOLOGY Prescribed Total Dose 6,600 cGray MOSAIQ RADIATION ONCOLOGY Actual Fractions Delivered 14 MOSAIQ RADIATION ONCOLOGY Actual Session Delivered Dose 200 cGray MOSAIQ RADIATION ONCOLOGY Actual Total Dose 2,800 cGray MOSAIQ RADIATION ONCOLOGY Prescribed Technique 2 arc VMAT MOSAIQ RADIATION ONCOLOGY Elapsed Days 20 MOSAIQ RADIATION ONCOLOGY Start Date 09/15/2024 MOSAIQ RADIATION ONCOLOGY Last Date 10/05/2024 MOSAIQ RADIATION ONCOLOGY Prescribed Number of Fractions 33 MOSAIQ RADIATION ONCOLOGY 10/05/2024 3:19 PM EDT Physician Radiation Oncology RADIATION ONCMOSHE GY ORDERABLES Final Result MOSAIQ RADIATION ONCOLOGY * Rad Onc Msq Treatment Summary (10/04/2024 2:38 PM EDT) Treatment Site prostate bed MO SAIQ RADIATION ONCOLOGY Course Number 1 MOSAIQ RADIATION ONCOLOGY Prescribed Fractional Dose 200 cGray MOSAIQ RADIATION ONCOLOGY Prescribed Total Dose 6,600 cGray MOSAIQ RADIATION ONCOLOGY Actual Fractions Delivered 13 MOSAIQ RADIATION ONCOLOGY Actual Session Delivered Dose 200 cGray MOSAIQ RADIATION ONCOLOGY Actual Total Dose 2,600 cGray MOSAIQ RADIATION ONCOLOGY Prescribed Technique 2 arc VMAT MOSAIQ RADIATION ONCOLOGY Elapsed Days 19 MOSAIQ RADIATION ONCOLOGY Start Date 09/15/2024 MOSAIQ RADIATION ONCOLOGY Last Date 10/04/2024 MOSAIQ RADIATION ONCOLOGY Prescribed Number of Fractions 33 MOSAIQ RADIATION ONCOLOGY 10/04/2024 2:38 PM EDT Physician Radiation Oncology RADIATION ONCMOSHE GY ORDERABLES Final Result MOSAIQ RADIATION ONCOLOGY * Rad Onc Msq Treatment Summary (10/01/2024 3:44 PM EDT) Treatment Site prostate bed MO SAIQ RADIATION ONCOLOGY Course Number 1 MOSAIQ RADIATION ONCOLOGY Prescribed Fractional Dose 200 cGray MOSAIQ RADIATION ONCOLOGY Prescribed Total Dose 6,600 cGray MOSAIQ RADIATION ONCOLOGY Actual Fractions Delivered 12 MOSAIQ RADIATION ONCOLOGY Actual Session Delivered Dose 200 cGray MOSAIQ RADIATION ONCOLOGY Actual Total Dose 2,400 cGray MOSAIQ RADIATION ONCOLOGY Prescribed Technique 2 arc VMAT MOSAIQ RADIATION ONCOLOGY Elapsed Days 16 MOSAIQ RADIATION ONCOLOGY Start Date 09/15/2024 MOSAIQ RADIATION ONCOLOGY Last Date 10/01/2024 MOSAIQ RADIATION ONCOLOGY Prescribed Number of Fractions 33 MOSAIQ RADIATION ONCOLOGY 10/01/2024 3:44 PM EDT Physician Radiation Oncology RADIATION ONCMOSHE GY ORDERABLES Final Result Performing Organization Address City/[facility]/ZIP Co de Phone Number MOSAIQ RADIATION ONCOLOGY * Rad Onc Msq Treatment Summary (09/30/2024 3:28 PM EDT) Treatment Site prostate bed MO SAIQ RADIATION ONCOLOGY Course Number 1 MOSAIQ RADIATION ONCOLOGY Prescribed Fractional Dose 200 cGray MOSAIQ RADIATION ONCOLOGY Prescribed Total Dose 6,600 cGray MOSAIQ RADIATION ONCOLOGY Actual Fractions Delivered 11 MOSAIQ RADIATION ONCOLOGY Actual Session Delivered Dose 200 cGray MOSAIQ RADIATION ONCOLOGY Actual Total Dose 2,200 cGray MOSAIQ RADIATION ONCOLOGY Prescribed Technique 2 arc VMAT MOSAIQ RADIATION ONCOLOGY Elapsed Days 15 MOSAIQ RADIATION ONCOLOGY Start Date 09/15/2024 MOSAIQ RADIATION ONCOLOGY Last Date 09/30/2024 MOSAIQ RADIATION ONCOLOGY Prescribed Number of Fractions 33 MOSAIQ RADIATION ONCOLOGY 09/30/2024 3:28 PM EDT Physician Radiation Oncology RADIATION ONCMOSHE GY ORDERABLES Final Result MOSAIQ RADIATION ONCOLOGY * Rad Onc Msq Treatment Summary (09/29/2024 3:15 PM EDT) Treatment Site prostate bed MO SAIQ RADIATION ONCOLOGY Course Number 1 MOSAIQ RADIATION ONCOLOGY Prescribed Fractional Dose 200 cGray MOSAIQ RADIATION ONCOLOGY Prescribed Total Dose 6,600 cGray MOSAIQ RADIATION ONCOLOGY Actual Fractions Delivered 10 MOSAIQ RADIATION ONCOLOGY Actual Session Delivered Dose 200 cGray MOSAIQ RADIATION ONCOLOGY Actual Total Dose 2,000 cGray MOSAIQ RADIATION ONCOLOGY Prescribed Technique 2 arc VMAT MOSAIQ RADIATION ONCOLOGY Elapsed Days 14 MOSAIQ RADIATION ONCOLOGY Start Date 09/15/2024 MOSAIQ RADIATION ONCOLOGY Last Date 09/29/2024 MOSAIQ RADIATION ONCOLOGY Prescribed Number of Fractions 33 MOSAIQ RADIATION ONCOLOGY 09/29/2024 3:15 PM EDT Physician Radiation Oncology RADIATION ONCMOSHE GY ORDERABLES Final Result MOSAIQ RADIATION ONCOLOGY * Rad Onc Msq Treatment Summary (09/28/2024 3:18 PM EDT) Treatment Site prostate bed MO SAIQ RADIATION ONCOLOGY Course Number 1 MOSAIQ RADIATION ONCOLOGY Prescribed Fractional Dose 200 cGray MOSAIQ RADIATION ONCOLOGY Prescribed Total Dose 6,600 cGray MOSAIQ RADIATION ONCOLOGY Actual Fractions Delivered 9 MOSAIQ RADIATION ONCOLOGY Actual Session Delivered Dose 200 cGray MOSAIQ RADIATION ONCOLOGY Actual Total Dose 1,800 cGray MOSAIQ RADIATION ONCOLOGY Prescribed Technique 2 arc VMAT MOSAIQ RADIATION ONCOLOGY Elapsed Days 13 MOSAIQ RADIATION ONCOLOGY Start Date 09/15/2024 MOSAIQ RADIATION ONCOLOGY Last Date 09/28/2024 MOSAIQ RADIATION ONCOLOGY Prescribed Number of Fractions 33 MOSAIQ RADIATION ONCOLOGY 09/28/2024 3:18 PM EDT Physician Radiation Oncology RADIATION ONCMOSHE GY ORDERABLES Final Result MOSAIQ RADIATION ONCOLOGY * Rad Onc Msq Treatment Summary (09/27/2024 2:08 PM EDT) Treatment Site prostate bed MO SAIQ RADIATION ONCOLOGY Course Number 1 MOSAIQ RADIATION ONCOLOGY Prescribed Fractional Dose 200 cGray MOSAIQ RADIATION ONCOLOGY Prescribed Total Dose 6,600 cGray MOSAIQ RADIATION ONCOLOGY Actual Fractions Delivered 8 MOSAIQ RADIATION ONCOLOGY Actual Session Delivered Dose 200 cGray MOSAIQ RADIATION ONCOLOGY Actual Total Dose 1,600 cGray MOSAIQ RADIATION ONCOLOGY Prescribed Technique 2 arc VMAT MOSAIQ RADIATION ONCOLOGY Elapsed Days 12 MOSAIQ RADIATION ONCOLOGY Start Date 09/15/2024 MOSAIQ RADIATION ONCOLOGY Last Date 09/27/2024 MOSAIQ RADIATION ONCOLOGY Prescribed Number of Fractions 33 MOSAIQ RADIATION ONCOLOGY 09/27/2024 2:08 PM EDT Physician Radiation Oncology RADIATION ONCMOSHE GY ORDERABLES Final Result MOSAIQ RADIATION ONCOLOGY * Rad Onc Msq Treatment Summary (09/24/2024 3:22 PM EDT) Treatment Site prostate bed MO SAIQ RADIATION ONCOLOGY Course Number 1 MOSAIQ RADIATION ONCOLOGY Prescribed Fractional Dose 200 cGray MOSAIQ RADIATION ONCOLOGY Prescribed Total Dose 6,600 cGray MOSAIQ RADIATION ONCOLOGY Actual Fractions Delivered 7 MOSAIQ RADIATION ONCOLOGY Actual Session Delivered Dose 200 cGray MOSAIQ RADIATION ONCOLOGY Actual Total Dose 1,400 cGray MOSAIQ RADIATION ONCOLOGY Prescribed Technique 2 arc VMAT MOSAIQ RADIATION ONCOLOGY Elapsed Days 9 MOSAIQ RADIATION ONCOLOGY Start Date 09/15/2024 MOSAIQ RADIATION ONCOLOGY Last Date 09/24/2024 MOSAIQ RADIATION ONCOLOGY Prescribed Number of Fractions 33 MOSAIQ RADIATION ONCOLOGY 09/24/2024 3:22 PM EDT Physician Radiation Oncology RADIATION ONCMOSHE GY ORDERABLES Final Result MOSAIQ RADIATION ONCOLOGY * Rad Onc Msq Treatment Summary (09/23/2024 9:17 AM EDT) Treatment Site prostate bed MO SAIQ RADIATION ONCOLOGY Course Number 1 MOSAIQ RADIATION ONCOLOGY Prescribed Fractional Dose 200 cGray MOSAIQ RADIATION ONCOLOGY Prescribed Total Dose 6,600 cGray MOSAIQ RADIATION ONCOLOGY Actual Fractions Delivered 6 MOSAIQ RADIATION ONCOLOGY Actual Session Delivered Dose 200 cGray MOSAIQ RADIATION ONCOLOGY Actual Total Dose 1,200 cGray MOSAIQ RADIATION ONCOLOGY Prescribed Technique 2 arc VMAT MOSAIQ RADIATION ONCOLOGY Elapsed Days 8 MOSAIQ RADIATION ONCOLOGY Start Date 09/15/2024 MOSAIQ RADIATION ONCOLOGY Last Date 09/23/2024 MOSAIQ RADIATION ONCOLOGY Prescribed Number of Fractions 33 MOSAIQ RADIATION ONCOLOGY 09/23/2024 9:17 AM EDT Physician Radiation Oncology RADIATION ONCOLO GY ORDERABLES Final Result MOSAIQ RADIATION ONCOLOGY * Rad Onc Msq Treatment Summary (09/22/2024 8:13 AM EDT) Treatment Site prostate bed MO SAIQ RADIATION ONCOLOGY Course Number 1 MOSAIQ RADIATION ONCOLOGY Prescribed Fractional Dose 200 cGray MOSAIQ RADIATION ONCOLOGY Prescribed Total Dose 6,600 cGray MOSAIQ RADIATION ONCOLOGY Actual Fractions Delivered 5 MOSAIQ RADIATION ONCOLOGY Actual Session Delivered Dose 200 cGray MOSAIQ RADIATION ONCOLOGY Actual Total Dose 1,000 cGray MOSAIQ RADIATION ONCOLOGY Prescribed Technique 2 arc VMAT MOSAIQ RADIATION ONCOLOGY Elapsed Days 7 MOSAIQ RADIATION ONCOLOGY Start Date 09/15/2024 MOSAIQ RADIATION ONCOLOGY Last Date 09/22/2024 MOSAIQ RADIATION ONCOLOGY Prescribed Number of Fractions 33 MOSAIQ RADIATION ONCOLOGY 09/22/2024 8:1 3 AM EDT Physician Radiation Oncology RADIATION ONCOLO GY ORDERABLES Final Result MOSAIQ RADIATION ONCOLOGY * Rad Onc Msq Treatment Summary (09/21/2024 8:34 AM EDT) Treatment Site prostate bed MO SAIQ RADIATION ONCOLOGY Course Number 1 MOSAIQ RADIATION ONCOLOGY Prescribed Fractional Dose 200 cGray MOSAIQ RADIATION ONCOLOGY Prescribed Total Dose 6,600 cGray MOSAIQ RADIATION ONCOLOGY Actual Fractions Delivered 4 MOSAIQ RADIATION ONCOLOGY Actual Session Delivered Dose 200 cGray MOSAIQ RADIATION ONCOLOGY Actual Total Dose 800 cGray MOSAIQ RADIATION ONCOLOGY Prescribed Technique 2 arc VMAT MOSAIQ RADIATION ONCOLOGY Elapsed Days 6 MOSAIQ RADIATION ONCOLOGY Start Date 09/15/2024 MOSAIQ RADIATION ONCOLOGY Last Date 09/21/2024 MOSAIQ RADIATION ONCOLOGY Prescribed Number of Fractions 33 MOSAIQ RADIATION ONCOLOGY 09/21/2024 8:34 AM EDT Physician Radiation Oncology RADIATION ONCOLO GY ORDERABLES Final Result NICKIQ RADIATION ONCOLOGY * Rad Onc Msq Treatment Summary (09/17/2024 8:04 AM EDT) Treatment Site prostate bed MO SAIQ RADIATION ONCOLOGY Course Number 1 MOSAIQ RADIATION ONCOLOGY Prescribed Fractional Dose 200 cGray MOSAIQ RADIATION ONCOLOGY Prescribed Total Dose 6,600 cGray MOSAIQ RADIATION ONCOLOGY Actual Fractions Delivered 3 MOSAIQ RADIATION ONCOLOGY Actual Session Delivered Dose 200 cGray MOSAIQ RADIATION ONCOLOGY Actual Total Dose 600 cGray MOSAIQ RADIATION ONCOLOGY Prescribed Technique 2 arc VMAT MOSAIQ RADIATION ONCOLOGY Elapsed Days 2 MOSAIQ RADIATION ONCOLOGY Start Date 09/15/2024 MOSAIQ RADIATION ONCOLOGY Last Date 09/17/2024 MOSAIQ RADIATION ONCOLOGY Prescribed Number of Fractions 33 MOSAIQ RADIATION ONCOLOGY 09/17/2024 8:04 AM EDT Physician Radiation Oncology RADIATION ONCOLO GY ORDERABLES Final Result Performing Organization Address City/[facility]/ZIP Co de Phone Number MOSAIQ RADIATION ONCOLOGY * Rad Onc Msq Treatment Summary (09/16/2024 8:15 AM EDT) Treatment Site prostate bed MO SAIQ RADIATION ONCOLOGY Course Number 1 MOSAIQ RADIATION ONCOLOGY Prescribed Fractional Dose 200 cGray MOSAIQ RADIATION ONCOLOGY Prescribed Total Dose 6,600 cGray MOSAIQ RADIATION ONCOLOGY Actual Fractions Delivered 2 MOSAIQ RADIATION ONCOLOGY Actual Session Delivered Dose 200 cGray MOSAIQ RADIATION ONCOLOGY Actual Total Dose 400 cGray MOSAIQ RADIATION ONCOLOGY Prescribed Technique 2 arc VMAT MOSAIQ RADIATION ONCOLOGY Elapsed Days 1 MOSAIQ RADIATION ONCOLOGY Start Date 09/15/2024 MOSAIQ RADIATION ONCOLOGY Last Date 09/16/2024 MOSAIQ RADIATION ONCOLOGY Prescribed Number of Fractions 33 MOSAIQ RADIATION ONCOLOGY 09/16/2024 8:15 AM EDT Physician Radiation Oncology RADIATION ONCOLO GY ORDERABLES Final Result MOSAIQ RADIATION ONCOLOGY * Rad Onc Msq Treatment Summary (09/15/2024 11:13 AM EDT) Treatment Site prostate bed MO SAIQ RADIATION ONCOLOGY Course Number 1 MOSAIQ RADIATION ONCOLOGY Prescribed Fractional Dose 200 cGray MOSAIQ RADIATION ONCOLOGY Prescribed Total Dose 6,600 cGray MOSAIQ RADIATION ONCOLOGY Actual Fractions Delivered 1 MOSAIQ RADIATION ONCOLOGY Actual Session Delivered Dose 200 cGray MOSAIQ RADIATION ONCOLOGY Actual Total Dose 200 cGray MOSAIQ RADIATION ONCOLOGY Prescribed Technique 2 arc VMAT MOSAIQ RADIATION ONCOLOGY Elapsed Days 0 MOSAIQ RADIATION ONCOLOGY Start Date 09/15/2024 MOSAIQ RADIATION ONCOLOGY Last Date 09/15/2024 MOSAIQ RADIATION ONCOLOGY Prescribed Number of Fractions 33 MOSAIQ RADIATION ONCOLOGY 09/15/2024 11:1 3 AM EDT us Physician Radiation Oncology RADIATION ONCOLO GY ORDERABLES Final Result MOSAIQ RADIATION ONCOLOGY from Last 3 Months Insurance [facility] [place]. 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
== END 2024-11-22 10:51 | disposition home or self-care (01) ==
LOC: HO.HGI 10:19
PROVIDERS: PCP Emergency Medicine; Visit Provider Nurse Practitioner Family
DX: K59.04 Chronic idiopathic constipation (principal)
CPT/HCPCS: 99213

== ENCOUNTER → 2024-11-22 10:19 | Outpatient (BNVA) | payer MEDICARE, MEDICAID, SELFPAY | PROVIDERS: PCP Emergency Medicine; Visit Provider Nurse Practitioner Family | DX: K59.04 Chronic idiopathic constipation (principal) | CPT/HCPCS: 99212 ==

== ENCOUNTER 2025-01-21 12:45 | Outpatient (AMB) | payer MEDICARE, MEDICAID, SELFPAY ==
--- NOTE | 2025-01-21 12:59 | MHC.OFFVIS ---
Vital Signs 01/21/25 13:02 Height 5 ft 7 in Weight 158 lb BMI 24.7 BP 143/72 H Blood Pressure Location Rt brachial Position Sitting Pulse 72 Pulse Source Pulse Oximeter Pulse Oximetry (%) 99 Oxygen Delivery Method Room Air Intake Visit Reasons: CHRONIC MIDLINE LOW BACK PAIN Intake Note: Pain today 11/04 Assessment Coordinator Required: Yes Assessment Coordinator Language: Systems Architect Services: Assessment Coordinator Present Assessment Coordinator Name: Jimmy [id number] Allergies No Known Allergies (No Known Allergies*) Allergy (Verified 01/21/25 13:03) HPI Comments Details: The patient is a 74-year-old Japanese-speaking male presenting with chronic back pain. Denies any recent trauma, injury, or falls. The back pain has been described as sharp, shooting, and stabbing, and it is exacerbated by prolonged sitting, standing, laying down, or extending backwards. The patient reports that the pain is more pronounced on the left side and experiences difficulty standing up after lying down. Denies radiation of back pain to his lower extremities, denies numbness or tingling or weakness. The patient has not engaged in physical therapy in the past year or two, and current management includes the use of Tylenol, which provides minimal relief. The patient's x-ray reveals mild to moderate degenerative spondylosis with mild right scoliosis in the thoracic region and moderate spondylosis in the lumbar region. Denies previous spine surgery or injections. - Onset and Timing: Chronic, persistent pain - Quality and Character: Sharp, shooting, stabbing pain - Primary Location: More pronounced on the left side of the back - Exacerbating Factors: Prolonged sitting, standing, laying down, extending backwards - Relieving Factors: None effectively identified, minimal relief with Tylenol - Interference with Activities: Difficulty standing up after lying down - Affect: Not explicitly discussed - Analgesia: Currently using Tylenol with minimal relief, lidocaine patch prescribed - Adverse Effects: None reported - Activities of Daily Living: Difficulty with standing up after lying down - Aberrant Drug Related Behaviors: None reported Oswestry Low Back Pain Disability Score=19 [facility] Medical History Type 2 diabetes mellitus Chronic midline low back pain with bilateral sciatica Anxiety Chronic idiopathic constipation Tubular adenoma HTN (hypertension) Surgical History History of prostate surgery Hx of colonoscopy Family History Father Alzheimer disease Mother Thyroid disease Social History Household Members: Spouse Alcohol intake: never Patient Tobacco Use Status: Never used Tobacco Review of Systems Const Details: - Musculoskeletal: Reports chronic back pain, denies weakness, numbness or tingling in legs All systems reviewed & are unremarkable except as noted in HPI and below Physical Exam Vital Signs: Last Vital Signs Pulse 72 01/21/25 13:02 BP 143/72 H 01/21/25 13:02 Pulse Ox 99 01/21/25 13:02 Oxygen Delivery Method Room Air 01/21/25 13:02 BMI result Body Mass Index 24.7 General: Appears afebrile. Alert and oriented. Mood and affect appropriate. Follows and participates in conversation appropriately. Respiratory effort is unlabored. No cough. Able to transition from sit to stand unassisted. Ambulates with bilaterally normal heel strike and toe off. General: Yes no CVA tenderness Back/Spine/Pelvis Other: Limited lumbar ROM due to pain. Lumbar extension and axial rotations reproduce moderate pain. Lumbar flexion is intact and reproduces mild pain. Demonstrates 5/5 strength of quadriceps bilaterally as well as flexion/dorsiflexion of bilateral feet against resistance. 2+ pedal pulses bilaterally. Straight leg rise with dorsiflexion negative bilaterally. +2 patellar and achilles reflexes bilaterally. Facet loading test positive bilaterally. No groin pain with I/E hip rotations. Valsalva maneuver negative. Back: no CVA tenderness Cervical Spine: cervical ROM normal, No cervical muscular tenderness and No Cervical spine tenderness Thoracic/Lumbar Spine: thoracic and lumbar spine normal to inspection, No Thoracic/lumbar spine scar(s), Lasegue's sign negative, straight leg raise negative bilaterally, pain with thoraco-lumbar ROM, paraspinal muscle tenderness on the left greater than right, thoraco-lumbar ROM limited, No thoracic spinal tenderness and No lumbar spinal tenderness Sacroiliac joints: bilaterally nontender Extrem General: Yes capillary refill normal, Yes no clubbing, cyanosis or edema and Yes no calf tenderness Results Reviewed Results Reviewed: XR THORACIC SPINE 10/01/24 CLINICAL INFORMATION: chornic back pain FINDINGS: There is a mild right convex scoliosis, centered at T5. There is a normal thoracic kyphosis. No subluxations. No compression deformity, acute fracture, or suspicious bone lesion. Mild to moderate diffuse disc degeneration present with disc osteophytic spurring most notable in the mid and inferior thoracic spine. Normal facet alignment. The paraspinal soft tissues are unremarkable. IMPRESSION: 1. No acute findings of the thoracic spine. 2. Mild to moderate degenerative spondylosis with mild right convex scoliosis. XR LUMBOSACRAL SPINE 10/01/24 CLINICAL INFORMATION: back pain FINDINGS: There is a minimal levoconvex scoliosis, apex at L2-3. There is a normal lordosis. There is no fracture, compression deformity, or suspicious bone lesion. There is a 4 mm degenerative appearing retrolisthesis of L2 on L3. Alignment is otherwise anatomic. Moderate disc degeneration diffusely, most significant at L1-2 and L2-3. Facets are normally aligned. There are degenerative facet changes present notable L4-S1. The sacrum is intact. Minimal degenerative arthritis in the bilateral SI joints. No soft tissue abnormalities. IMPRESSION: 1. No acute findings of the lumbar spine. 2. Moderate spondylosis as discussed. Assessment & Plan Assessment & Plan (1) Spondylosis of thoracolumbar spine: Code(s): M47.815 - Spondylosis without myelopathy or radiculopathy, thoracolumbar region Category: Medical (2) Chronic low back pain without sciatica: Code(s): M54.50 - Low back pain, unspecified; G89.29 - Other chronic pain Category: Medical (3) Spondylosis of thoracolumbar spine: Code(s): M47.815 - Spondylosis without myelopathy or radiculopathy, thoracolumbar region Category: Medical (4) Chronic low back pain without sciatica: Code(s): M54.50 - Low back pain, unspecified; G89.29 - Other chronic pain Category: Medical Plan The plan for managing the patient's chronic back pain includes initiating physical therapy for one to two months prior to further interventions. If physical therapy does not provide adequate relief, diagnostic lumbar medial branch block injections will be considered to assess the suitability for procedures such as Sprint PNS trial vs RFA for a longer term pain relief. A lidocaine patch was prescribed to provide additional pain relief, and the patient was instructed to follow up after completing physical therapy. All questions and concerns have been answered and patient agreed with the treatment plan. Follow up after PT and sooner as needed. Patient was informed and verbally consented to the use of an ambient scribe for clinic note documentation during this visit. Orders: Orders PT Evaluation and Treatment Today G89.29 - Other chronic pain, M47.815 - Spondylosis without myelopathy or radiculopathy, thoracolumbar region, M54.50 - Low back pain, unspecified Medications: New lidocaine 5% Apply to affected areas up to 12 hours a day 1 patch topical DAILY 30 ea 0RF pain 30 days G89.29 - Other chronic pain, M47.815 - Spondylosis without myelopathy or radiculopathy, thoracolumbar region, M54.50 - Low back pain, unspecified Coding Level of Care Code New Pt Level 4 (54354) Diagnoses Spondylosis of thoracolumbar spine M47.815 Chronic low back pain without sciatica M54.50; G89.29
[2025-01-21 13:02] VITALS: BP 143/72; PULSE 72; O2SAT 99; BMI 24.7
--- OUTSIDE RECORDS SUMMARY | 2025-01-21 14:11 | XMS_ITS | Encounter Summary ---
Author Organization [facility] Address [address] [place] [address] Care Team Providers Care Media Consultant Outside Sales Name Role Phone Marga Snider MD Primary Care Provider [phone]- [phone] Madelyn Berry PharmD Unavailable Matty Robertson MD Unavailable Merlyn Packer Unavailable Parth Haas Unavailable Reason for Visit * Reason Onset Date Comments Nurse Triage 05/23/2023 Encounter Details Date Type Department Care Team (Late st Contact Info) Description 05/23/2023 Telephone [facility] [address] [place], [place] [phone] Marga Snider MD [address], [place] [phone] Nurse Triage Social History Tobacco Use Types [...] AM EDT documented as of this encounter Functional Status * Over the past 2 weeks, how often have you been bothered by any of the following problems? Question Answer Date of Assessment Author Patient Health Questionnaire-2 Score 4 04/29 3:23 PM Mikael Osborne * If you checked off any problems on this questionnaire so far, Question Answer Date of Assessment Author How difficult have these problems made it for you to do your work, take care of things at home, or get along with other people? Very difficult 05/23/2023 3:23 PM Mikael Osborne * Over the last 2 weeks, how often have you been bothered by any of the following problems? Question Answer Date of Assessment Author Feeling nervous, anxious, or on edge 3 04/29 3:24 PM Mikael Osborne Not being able to stop or co ntrol worrying 3 05/23/2023 3:24 PM Mikael Osborne Worrying too much about diff erent things 3 05/23/2023 3:24 PM Mikael Osborne Trouble relaxing 2 05/23/2023 3:24 PM Mikael Luo Being so restless that it is hard to sit still 3 05/23/2023 3:24 PM Mikael Osborne Becoming easily annoyed or irritable 3 04/29 3:24 PM Mikael Osborne Feeling afraid as if somethi ng awful might happen 3 05/23/2023 3:24 PM Mikael Osborne AL-7 Total Score 20 05/23/2023 3:24 PM Mikael Osborne * Over the past 2 weeks, how often have you been bothered by any of the following problems? Question Answer Date of Assessment Author Little interest or pleasure in doing things More than half the days 05/23/2023 3:23 PM Mikael Osborne Feeling down, depressed, or hopeless More than half the days 05/23/2023 3:23 PM Mikael Osborne Trouble falling or staying asleep, or sleeping too much Nearly every day 05/23/2023 3:23 PM Mikeal Osborne Feeling tired or having little energy Several days 05/23/2023 3:23 PM Mikael Osborne Poor appetite or overeating Nearly every day 05/23/2023 3:23 PM Mikael Osborne Feeling bad about yourself - or that you are a failure or have let yourself or your family down Several days 05/23/2023 3:23 PM Mikael Osborne Trouble concentrating on things, such as reading the newspaper or watching television More than half the days 05/23/2023 3:23 PM Mikael Osborne Moving or speaking so slowly that other people could have noticed? Or the opposite - being so fidgety or restless that you have been moving around a lot more than usual. Several days 05/23/2023 3:23 PM Mikael Osborne Thoughts that you would be better off or hurting yourself in some way Not at all 05/23/2023 3:23 PM Mikael Osborne Patient Health Questionnaire-9 Score 15 05/23/2023 3:23 PM Mikael Osborne documented as of this encounter Miscellaneous Notes * Telephone Encounter - Mikael Gasca - 05/23/2023 5:18 PM EST Be completed Patient agreed to referral for OP services, referral has been submitted. * Telephone Encounter - Renetta Veronica RN - 05/23/2023 1:05 PM EST Called pt. Via [employer] aerial photograph interpreter [id number] Deepika. Pt. States that he has been [...] denies suicidal thoughts. Pt. Wants someone from [facility] to reach out so that he can [...] been evaluated for this by doctor (or ROVING OR YARN COLOR CHECKER/PA) * Panic attacks are increasing in frequency [...] The caller accepted this outcome Patient speaks eritrean documented in this encounter Plan of Treatment Not on file documented as of this encounter Goals Goal Patient Goal Type Associated Problems Recent Progress Patient-Stated? Author Blood Pressure < 140/90 Blood Pressure 130/80( 025 11:14 AM EDT) No Madelyn Mcleod PharmD documented as of this encounter Visit Diagnoses Not on filedocumented in this encounter Additional Health Concerns Assessment Noted Time PHQ-9 Depression Total Score: 15 024 3:23 PM EST documented as of this encounter Care Teams Media Consultant Outside Sales Relationship Specialty Start Date End Date Marga Snider MD [address] [place] [address] PCP - General Family Medicine 12/11/16 Madelny Berry, PharmD [address] [place] [address] Pharmacist Internal Medicine 02/27/23 09/16/23 Mtaty Robertson MD [address] [place] [address] Cardiology 03/23/24 Merlyn Packer [address] [place] [address] 3[address] [place] [address] Gastroenterology 06/08/24 Parth Haas [address] [facility] [address] [id number] Urology 06/08/24 documented as of this encounter
--- OUTSIDE RECORDS SUMMARY | 2025-01-21 14:11 | XMS_ITS | Clinical Summary ---
Author Organization [employer] Address [address] [place] [address] Care Team Providers Care Microsoft Exchange Administrator Name Role Phone Marga Snider MD Primary Care Provider [phone] Matty Robertson MD Unavailable Merlyn Packer Unavailable Parth Haas Unavailable Allergies No known active allergies Medications * This document contains information received from the source organization and may not represent a complete record from that organization. Linzess 145 MCG capsuleIndication s:Other irritable bowel syndrome Take 145 mcg by mouth Once per day. 4 Active aspirin 81 MG EC tabletIndications :Essential hypertension Take 81 mg by mouth Once per day. Active hydroCHLOROthiazi de (HYDRODiuril) 25 MG tabletIndications :Essential hypertension Take 25 mg by mouth Once per day. Active hydrALAZINE (Apresoline) 25 MG tabletIndications :Essential hypertension Take by mouth 2 times daily. Per cardiology Active atorvastatin (Lipitor) 40 MG tabletIndications :Multiple vessel coronary artery disease Take 1 tablet (40 mg) by mouth Once per day. 90 tablet 3 5 07/30/19 26 Active metFORMIN, OSM, (Fortamet) 500 MG 24 hr tabletIndications :Type 2 Diabetes Mellitus Take 1 tablet (500 mg) by mouth Once per day. Do not crush, chew, or split. 90 tablet 3 5 09/30/19 26 Active FREESTYLE LITE test stripIndications: Type 2 diabetes mellitus without complication, without long-term current use of insulin ([facility]) Use to test blood sugar 1 times daily 100 each 11 06/04/202 5 09/30/19 26 Active Lancets miscIndications:T ype 2 diabetes mellitus without complication, without long-term current use of insulin ([facility]) Use to test blood sugar 1 times daily 100 each 5 Active Alcohol Swabs 70 % padsIndications:T ype 2 diabetes mellitus without complication, without long-term current use of insulin (CMS/HCC) Use to test blood sugar 1 times daily 100 each 5 Active Blood Glucose Monitoring Suppl (TouchBistroStyle Forrest[place] Lite) w/Device kitIndications:Ty pe 2 diabetes mellitus without complication, without long-term current use of insulin ([facility]) Use to test blood sugar 1 times daily 1 kit 5 Active fluticasone (Flonase) 50 MCG/ACT nasal sprayIndications: Allergic rhinitis, unspecified seasonality, unspecified trigger INSTILL 1 SPRAY IN EACH NOSTRIL ONCE DAILY 16 g 2 5 Active metFORMIN XR (Glucophage-XR) 500 MG 24 hr tabletIndications :Type 2 diabetes mellitus without complication, without long-term current use of insulin ([facility]) TAKE 1 TABLET BY MOUTH EVERY DAY. DO NOT BREAK, CRUSH, DISSOLVE OR CHEW. 5 Active Active Problems Patient Care Coordination No te Formatting of this note migh t be different from the original. Enrolled in [facility][NOTE 3] HTN clinic with Madelyn Berry, ChikaD, CDCES Problem Noted Date Diagnosed Date Type 2 diabetes mellitus wit hout complication, without long-term current use of insulin 09/29/2024 Overview (01/05/2025): Diabetes is controlled. Diagnosed 09/29/24 with A1c 6.5% Lab Results Component Value Date HGBA1C 6.1 (A) 01/05/2025 HGBA1C 6.2 (H) 10/01/2024 HGBA1C 6.5 (A) 09/29/2024 - Lab Results Component Value Date CREATININE 0.73 10/01/2024 EGFR >60 10/01/2024 MICROALBCREU 14.5 10/01/2024 MICROALBCREU 44.0 (H) 03/17/2024 LDLCHOLCAL 28 10/01/2024 -Andrzej/Arb: n/a -Statin therapy: Atorvastatin 40 mg -Diabetic eye exam: 03/10/24 -Diabetic foot exam: -Continue lifestyle modifications -Continue current medications -start metfromin 500 09/29/24 Assessment & Plan (01/05/2025 1:42 PM EDT): Diabetes is controlled. Diagnosed 09/29/24 with A1c 6.5% Lab Results Component Value Date HGBA1C 6.1 (A) 01/05/2025 HGBA1C 6.2 (H) 10/01/2024 HGBA1C 6.5 (A) 09/29/2024 - Lab Results Component Value Date CREATININE 0.73 10/01/2024 EGFR >60 10/01/2024 MICROALBCREU 14.5 10/01/2024 MICROALBCREU 44.0 (H) 03/17/2024 LDLCHOLCAL 28 10/01/2024 -Andrzej/Arb: n/a -Statin therapy: Atorvastatin 40 mg -Diabetic eye exam: 03/10/24 -Diabetic foot exam: -Continue lifestyle modifications -Continue current medications -start metfromin 500 09/29/24 Orders: POCT Glucose POCT Hgb A1c Assessment & Plan (09/29/2024 11:28 AM EDT): Diabetes is controlled. Diagnosed 09/29/24 with A1c 6.5% Lab Results Component Value Date HGBA1C 6.1 (H) 03/17/2024 HGBA1C 5.7 (H) 10/17/2022 - Lab Results Component Value Date CREATININE 0.73 06/02/2024 EGFR >60 06/02/2024 MICROALBCREU 44.0 (H) 03/17/2024 MICROALBCREU 86.2 (H) 07/14/2023 LDLCHOLCAL 40 03/17/2024 -Andrzej/Arb: -Statin therapy: -Diabetic eye exam: -Diabetic foot exam: -Continue lifestyle modifications -Continue current medications -start metfromin 500 09/29/24 Midline low back pain with bilateral sciatica Assessment & Plan (01/05/2025 1:42 PM EDT): Likely musculoskeletal. Non-focal, normal motor exam without neurological deficits. No back pain red-flags: bowel/bladder incontinence, IVDU, urinary retention, saddle anesthesia, and significant motor deficits. -Recommend ibuprofen and muscle relaxer prn. -Acupuncture clinic offered. -Lifting precaution sand stretching reviewed. -Referred to Pain medicine 01/05/25 Orders: Referral to Pain Medicine; Future Grief 09/29/2024 Family history of thyroid disease 02/26/2024 Overview (09/29/2024): Strong family hx of thyroid disease, including all his siblings and his mother. Lab Results Component Value Date TSH 1.50 03/17/2024 -ordered TSH 02/26/24 Assessment & Plan (02/26/2024 [...] and Vit D 02/25/24 Microalbuminuria 02/26/2024 Overview (09/29/2024): Lab Results Component Value Date CREATININE 0.73 06/02/2024 EGFR >60 06/02/2024 MICROALBCREU 44.0 (H) 03/17/2024 MICROALBCREU 86.2 (H) 07/14/2023 LDLCHOLCAL 40 03/17/2024 -ordered Albumin/Cr 02/25/24 - improved Assessment & Plan (02/26/2024 9:45 AM EDT): Lab Results Component Value Date CREATININE 0.78 07/14/2023 EGFR >60 07/14/2023 MICROALBCREU 86.2 (H) 07/14/2023 LDLCHOLCAL 98 07/14/2023 -ordered Albumin/Cr 02/25/24 Blood glucose elevated 02/26/2024 Overview (01/05/2025): Lab Results Component Value Date HGBA1C 6.1 (A) 01/05/2025 HGBA1C 6.2 (H) 10/01/2024 HGBA1C 6.5 (A) 09/29/2024 HGBA1C 6.1 (H) 03/17/2024 HGBA1C 5.7 (H) 10/17/2022 GLUCOSE 118 (H) 10/01/2024 Assessment & Plan (01/05/2025 1:42 PM EDT): Lab Results Component Value Date HGBA1C 6.1 (A) 01/05/2025 HGBA1C 6.2 (H) 10/01/2024 HGBA1C 6.5 (A) 09/29/2024 HGBA1C 6.1 (H) 03/17/2024 HGBA1C 5.7 (H) 10/17/2022 GLUCOSE 118 (H) 10/01/2024 Assessment & Plan (02/26/2024 9:53 AM EDT): Lab Results Component Value Date HGBA1C 5.7 (H) 10/17/2022 GLUCOSE 131 (H) 07/14/2023 -ordered A1C 02/25/24 Other specified health status 02/03/2023 Overview (09/29/2024): -next comprehensive annual evaluation due after 09/27/25 -eye care facilitated by [facility] [place] -dental home is [facility] -health care proxy filed 02/25/24 -spirometry 12/15/23 normal FEV1/FVC 0.74 -normal ABIs 12/15/23 left 1.31, right 1.33 Assessment & Plan (09/29/2024 11:18 AM EDT): -next comprehensive annual evaluation due after 09/27/25 -eye care facilitated by [facility] -dental home is [facility] -health care proxy filed 02/25/24 -spirometry 12/15/23 normal FEV1/FVC 0.74 -normal ABIs 12/15/23 left 1.31, right 1.33 Assessment & Plan (02/26/2024 9:48 AM EDT): -next comprehensive annual evaluation due after 07/02/2024 -eye care facilitated by [facility] -dental home is [facility] -health care proxy filed 02/25/24 -spirometry 12/15/23 normal FEV1/FVC 0.74 -normal ABIs 12/15/23 left 1.31, right 1.33 Assessment & Plan (07/03/2023 11:58 AM EST): -next physical exam due after 07/02/2024 -eye care facilitated by [facility] -dental home is [facility] Anxiety 10/23/2022 Assessment & Plan (02/26/2024 1:46 PM EDT): During IBH Consult Nauruan presenting with excessive worry/anxiety and anxiety/worry associated to easily fatigued , difficulty concentrating and/or mind going blank , and irritability; for a period of 6-12 mo, for most or all symptoms in the context of unable to identify significant stressors. Nauruan reported experiencing anxiety but able to manage symptoms. His strong sense of keisha and community he has found in the confucianism is main strength. His sense of belonging (God/[place]ahai confucianism) is main motivation and value. Pt reports [...] to identify PLAN: 1. Follow up with [facility]: Not recommended for follow-up 2. Patient goal is to manage anxiety with medication 3. Behavioral Recommendations a. Patient will comply with medication b. Patient may utilize coping techniques discussed during encounter (copy of sheet provided) c. Patient may request to speak with a [facility] during next visit, if needed Osteoarthritis of [...] -pt agrees to therapy, seen by to [facility] 02/26/24 Assessment & Plan (09/30/2024 10:02 AM EDT): During IBH Consult Nauruan presenting with depressed mood, Tearful, crying spells , change in appetite or weight reduce appetite, changes in sleep difficulty falling asleep and difficulty staying asleep , psychomotor retardation, difficulty concentrating, indecisiveness, sadness and crying spells when remembering his mother; for a period of 6-12 mo, for most or all symptoms in the context of and illness or family illness. Pt reported feeling depressed due to worsening of his medical condition. Nauruan also endorsed depressive sxs associated with the loss of his mother. His strong connection with God and high sense of spirituality is main strength. Assessment & Plan (09/29/2024 11:19 AM EDT): - Anxiety is increasing. Denies suicidial or homacidial ideation. - Pt self d/c fluoxetine - Self Discontinued Lexapro in 2022 -pt agrees to therapy, seen by to [facility] 01/28 Assessment & Plan (02/26/2024 9:46 AM EDT): - Anxiety is increasing. Denies suicidial or homacidial ideation. - Pt self d/c fluoxetine - Self Discontinued Lexapro in 2022 -pt agrees to therapy, seen by to behavioral [facility] 02/26/24 Assessment & Plan (07/03/2023 12:09 PM EST): - Doing well. Pt self d/c fluoxetine - Patient declined counseling. - Self Discontinued Lexapro in 2022 Assessment & Plan (05/23/2023 5:09 PM EST): PROGRESS NOTE: ID: Nauruan is a 73 y.o. Decline to answer straight-identified cis-male (pronouns he/him/his) with previous documented hx of Depression and Anxiety MH services including [facility] Psychotherapy psychopharmacology who presents for Anxiety and Depression During IBH Consult Nauruan presenting with depressed mood, loss of interests/pleasure [...] intervention , Patient to [facility] as [facility], and Patient to reach out to [facility] as needed Assessment & Plan (10/16/2022 11:47 AM EDT): - Doing well. Pt self d/c fluoxetine - Patient declined counseling. - Increase Lexapro to 20mg daily. Assessment & Plan (07/08/2022 11:43 AM EDT): - Doing well. Pt self d/c fluoxetine - Patient declined counseling. History of prostate cancer 06/07/2021 Overview (01/05/2025): Prostate cancer diagnosed on 10/15/18.biochemical recurrence after robotic prostatectomy Oc tob2018 - PSA on 08/2018 was 6% % free was 15. Prior to prostatectomy. -Biopsy 10/15/18 was adenocarcinoma Temple score 8.4 of 12 cores positive for CA. -Followed by urology, Forest Haas -PSA 03/2020 undetectable -Urology note from 11/2020 states PSA undetectable, lab result requested 04/05/2021 -s/p LHRH injection 10/16/[address] Adan. -Pt transferred to [facility] urology with Dr. Haas. visit with Dr. [...] follow up Dr. Haas in 6 months -07/26/24 PET scan IMPRESSION: No site of recurrent PSMA-positive prostate cancer identified. -urology note 09/24/24 referral to radiation oncology placed -urology note 10/22/24 currently getting radiation therapy. It is unclear if he will get [address] Haas reaching out to radiation oncology, repeat PSA in 3 months -completed radiation therapy 11/02/24, doing well post completion Assessment & Plan (01/05/2025 1:42 PM EDT): Prostate cancer diagnosed on 10/15/18.biochemical recurrence after robotic prostatectomy Oc tob2018 - PSA on 08/2018 was 6% % free was 15. Prior to prostatectomy. -Biopsy 10/15/18 was adenocarcinoma Temple score 8.4 of 12 cores positive for CA. -Followed by urology, [facility] Haas -PSA 03/2020 undetectable -Urology note from 11/2020 states PSA undetectable, lab result requested 04/05/2021 -s/p LHRH injection 10/16/[address] Adan. -Pt transferred to [facility] urology with Dr. Haas. visit with Dr. [...] follow up Dr. Haas in 6 months -07/26/24 PET scan IMPRESSION: No site of recurrent PSMA-positive prostate cancer identified. -urology note 09/24/24 referral to radiation oncology placed -urology note 10/22/24 currently getting radiation therapy. It is unclear if he will get [address] Haas reaching out to radiation oncology, repeat PSA in 3 months -completed radiation therapy 11/02/24, doing well post completion Assessment & Plan (09/29/2024 11:25 AM EDT): Prostate cancer diagnosed on 10/15/18. - PSA on 08/2018 was 6% % free was 15. Prior to prostatectomy. 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 -Followed by urology, [facility] Haas -PSA 03/2020 undetectable -Urology note from 11/2020 states PSA undetectable, lab result requested 04/05/2021 -s/p LHRH injection 10/16/[address] Adan. -Pt transferred to [facility] urology with Dr. Haas. visit with Dr. [...] follow up Dr. Haas in 6 months -07/26/24 PET scan IMPRESSION: No site of recurrent PSMA-positive prostate cancer identified. -pt repots will be starting radiation Assessment & Plan (07/03/2023 11:54 AM EST): Prostate cancer diagnosed on 10/15/18. - PSA on 08/2018 was 6% % free was 15. Prior to prostatectomy. -Biopsy 10/15/18 was adenocarcinoma Temple score 8.4 of 12 cores positive for CA. -Followed by urology, [facility] Haas -PSA 08/2018 6.0 down from 8.0 -PSA 03/2020 undetectable -Urology note from 11/2020 states PSA undetectable, lab result requested 04/05/2021 -s/p LHRH injection 10/16/[address] Adan. -Pt transferred to [facility] urology with Dr. Haas. visit with Dr. [...] Prior to prostatectomy. -Biopsy 10/15/18 was adenocarcinoma Temple score 8.4 of 12 cores positive for CA. -Followed by urology, [facility] Haas -PSA 08/2018 6.0 down from 8.0 -PSA 03/2020 undetectable -Urology note from 11/2020 states PSA undetectable, lab result requested 04/05/2021 -s/p LHRH injection 10/16/[address] Adan. -Pt transferred to [facility] urology with Dr. Haas. visit with Dr. [...] Prior to prostatectomy. -Biopsy 10/15/18 was adenocarcinoma Temple score 8.4 of 12 cores positive for CA. -Followed by urology, Forest Haas -PSA 08/2018 6.0 down from 8.0 -PSA 03/2020 undetectable -Urology note from 11/2020 states PSA undetectable, lab result requested 04/05/2021 -s/p LHRH injection 10/16/[address] Adan. -Pt transferred to [facility] urology with Dr. Haas. visit with Dr. [...] May 2021. Chronic thoracic back pain 06/07/2021 Overview (10/01/2024): 09/30/24ORDER #: [id number] XR/XR thoracic spine 3V IMPRESSION: 1. No acute findings of the thoracic spine. 2. Mild to moderate degenerative spondylosis with mild right convex scoliosis. 09/30/24ORDER #: [id number] XR/XR lumbar spine 2-3V IMPRESSION: 1. No acute findings of the lumbar spine. 2. Moderate spondylosis as discussed. Erectile dysfunction 06/07/2021 Multiple vessel coronary artery disease 06/07/19 22 Overview (09/22/2024): Nuclear stress test was positive 01/2020 Per [...] note continue current medications. Patient followed at [facility] with Dr. Blaine Robertson DO. Note from 09/16/24reviewed. The 10-year ASCVD risk score (Deneen MACIAS, et al., 2019) is: 26.9% -start Atorvastatin 40 mg 02/25/24 Assessment & Plan (09/29/2024 11:19 AM EDT): Nuclear stress test was positive [...] note continue current medications. Patient followed at [facility] with Dr. Blaine Robertson DO. Note from 09/16/24reviewed. The 10-year ASCVD risk score (Deneen MACIAS, et al., 2019) is: 26.9% -start Atorvastatin [...] medications at correct doses. Per Shaylee in supervisor clam bed office on 07/07/20, patient is to continue HCTZ 25 mg daily and hydralazine 25 mg BID. Patient was contacted, was agreeable and confirmed understanding. Patient followed at [facility] with Dr. Blaine Robertson DO. [...] was positive 01/2020. Essential hypertension 03/15/2021 Overview (09/29/2024): -BP at goal -Continue lifestyle modifications -Continue current medications Assessment & Plan (09/29/2024 11:18 AM EDT): -BP at goal -Continue lifestyle modifications -Continue current medications Assessment & Plan (02/26/2024 9:44 AM EDT): [...] -Continue lifestyle modifications -Continue current medications Encounters Date Type Department Care Team Description 01/05/2025 11:15 AM EDT Office Visit [address] [id number] Marga Snider MD Type 2 diabetes mellitus without complication, without long-term current use of insulin (CMS/[facility]) (Primary Dx); History of prostate cancer; Blood glucose elevated; Chronic midline low back pain with bilateral sciatica 01/05/2025 Travel 01/04/[address] [address] Marga Snider MD chart prep 12/14/2024 Patient Outreach [facility] [address] [place], [place] [id number] Marga Snider MD Transition Of Care (Tcm) (HDF unscheduled. ) 12/14/[address] [address] Marga Snider MD Allergic rhinitis, unspecified seasonality, unspecified trigger 11/01/2024 11:00 AM EDT Clinical Support [address] [address] Bernice Louis, RN Type 2 diabetes mellitus without complication, without long-term current use of insulin (CMS/HCC) 11/01/[address] [address] Marga Snider MD Medication Question 11/01/2024 Travel 10/25/[address] [address] Marga Snider MD Medication Question from Last 3 Months Immunizations Immunization Administration Dates Next Due Hep B, adult 03/18/2023,10/16/2022,07/10/2022 INFLUENZA VACCINE QUADRIVALE NT RECOMBINANT PRESERVATIVE FREE RIV4 02/11/2020 Influenza High-dose Quadriva lent Preservative Free 02/11/2023,01/14/2022,02/12/2021 Influenza injectable quadriv alent preservative free 02/09/2015 Influenza, High Dose Seasona l, Preservative Free 02/19/2024,02/17/2019,01/29/2017,2015 Influenza, IIV3, injectable 02/21/2014 Influenza, trivalent, adjuvanted 02/11/2018 Moderna Covid-19 Vaccine 12+ 09/03/2021, 03/08/2021,07/13/2020,2020 Moderna Covid-19 Vaccine 6+ Bivalent 07/10/2022 Pfizer Covid-19 Vaccine 12+ 02/19/2024, Pneumococcal Conjugate PCV 13 04/08/2018 Pneumococcal Conjugate PCV 20 01/14/2022 RSV Bivalent 07/07/2023 Tdap 09/29/2024,09/21/2014 Zoster, Recombinant 11/23/2021,09/20/2021 Zoster, live 03/17/2012,02/15/2012 Family History Medical History Relation Name Comments Alzheimer's disease Father Relation Name Status Comments Father Social History Tobacco Use Types Packs/Day Years Used Date Smoking Tobacco: Never Smokeless Tobacco: Never Tobacco Cessation:Counseling Given: Not Answered Alcohol Use Standard Drinks/Week Comments Not Currently 1 (1 standard drink = 0.6 oz pur e alcohol) Occassionally Depression Answer Date Recorded Patient Health Questionnaire-9 Score 6 09/29/2024 Patient Health Questionnaire-9 Score 6 09/29/2024 Last PHQ-9: Questionnaire Data Not on file 0 09/29/2024 Housing Stability Answer Date Recorded What is your housing situation today? I have buddy nicole 09/29/[address] you li ve. Do you have problems with any of the following? None of the above 09/29/2024 Food Insecurity Answer Date Recorded Within the past 12 months, y ou worried that your food would run out before you got money to buy more: Never True 09/29/2024 Within the past 12 months,th e food you bought just didn't last and you didn't have enough money to get more: Never True 07/2024 Transportation Answer Date Recorded In the past 12 months, has l ack of transportation kept you from medical appts, meetings, work or from getting things needed for daily living? No 09/29/2024 Utilities Answer Date Recorded In the past 12 months, has t he electric, gas, oil or water company threatened to shut off services in your home? No 09/29/2024 Depression Answer Date Recorded Patient Health Questionnaire-2 Score 2 09/29/2024 Internet Access Answer Date Recorded Internet Access Q1 No 09/29/2024 Internet Access Q2 I do not want or need it 07/2024 Sex and Gender Information Value Date Recorded Sex Assigned at Male 02/25/2022 10:15 AM EDT Legal Sex Male 10:15 AM EDT Gender Identity Male 02/25/2022 10:15 AM EDT Sexual Orientation Straight 02/25/2022 10 :15 AM EDT Last Filed Vital Signs Vital Sign Reading Time Taken Comments Blood Pressure 130/80 01/05/2025 11:14 AM EDT Pulse 78 01/05/2025 11:14 AM EDT Temperature 36.2 C (97.1 F) 01/05/2025 11:14 AM EDT Respiratory Rate 16 01/05/2025 11:14 AM EDT Oxygen Saturation 99% 01/05/2025 11:14 AM EDT Inhaled Oxygen Concentration - - Weight 72.2 kg (159 lb 3.2 oz) 01/05/2025 11:14 AM EDT Height 170.2 cm (5' 7 ) 01/05/2025 11:14 AM EDT Body Mass Index 24.93 01/05/2025 11:14 AM EDT Plan of Treatment Health Maintenance Due Date Last Done Comments CT Colonography 1950 Dental Prophylaxis 1950 FIT DNA/Cologuard 1950 FIT 1950 FOBT 1950 Sigmoidoscopy 1950 Dental X-Ray: Bitewings 09/12/2010 09/11/2009 Dental Oral Exam 05/20/2021 11/16/2020, 10/25/2009 Dental X-Ray: Full Mouth 11/18/2023 11/16/2020, 08/26 COVID-19 Vaccine ( season) 2024 02/19/2024, 05/16/2023, 07/10/2022, Additional history exists Influenza Vaccine (#1) 2024 , 02/11/2023, 01/14/2022, Additional history exists Diabetes: Foot Exam 02/25/2025 02/26/2024, 02/26/2024, 02/26/2024 Diabetes: Hemoglobin A1C 07/05/2025 025, 10/01/2024, 09/29/2024, Additional history exists Depression Screening 09/29/2025 09/29/2024, 09/30/19 SDOH Screening 09/29/2025 09/29/2024 Diabetes: Urine Protein Screening 10/01/2025 10/01/2024, 03/17/2024, 07/14/2023 Lipid Panel 10/01/2025 10/01/2024, 02/27, 07/14/2023, Additional history exists Alcohol/Substance Use Screening 01/05/2026 01/05/2025 Tobacco Screening 01/05/2026 01/05/2025 Eye Exam 02/24/2026 02/25/2024, 01/28, 02/25/2024, Additional history exists Colonoscopy 12/31/2026 12/31/2021 Colorectal Cancer Screening 12/31/2026 DTaP/Tdap/Td Vaccines (3 - Td or Tdap) 09/29/2034 09/29/2024, 09/21/2014 Zoster Vaccines Completed 11/23/2021, 08/27, 03/17/2012, Additional history exists Pneumococcal Vaccine: 50+ Years Completed 01/14/2022, 04/08/2018 Hepatitis C Screening Completed 07/17/2022 Hepatitis B Vaccines Completed 03/18/2023, 10/16/2022, 07/10/2022 RSV Patients and Patients Aged 60 years or older Completed 07/07/2023 HIB Vaccines Aged Out No [...] Blood Pressure 130/80( 025 11:14 AM EDT) Madelyn Eastman PharmD Procedures Procedure Name Priority Date/Time Associated Diagnosis Comments POCT GLYCATED HEMOGLOBIN, TOTAL Routine 01/05/2025 11:18 AM EDT Type 2 diabetes mellitus without complication, without long-term current use of insulin (CMS/HCC) POCT GLUCOSE Routine 01/05/2025 11:17 AM EDT Type 2 diabetes mellitus without complication, without long-term current use of insulin (CMS/HCC) ALBUMIN, RANDOM URINE W/CREATININE Routine 10/01/2024 8:41 AM EDT Type 2 diabetes mellitus without complication, without long-term current use of insulin (CMS/HCC) LIPID PANEL, STANDARD Routine 10/01/2024 8:41 AM EDT Type 2 diabetes mellitus without complication, without long-term current use of insulin (CMS/HCC) HEPATITIS C AB W/REFL TO HCV RNA, QN, PCR Routine 07/17/2022 8:06 AM EDT Encounter for hepatitis C screening test for low risk patient HM COLONOSCOPY Routine 12/31/2021 PANORAMIC RADIOGRAPHIC IMAGE Routine 11/16/2020 12:00 AM EDT PERIODIC ORAL EVALUATION - ESTABLISHED PATIENT Routine 11/16/2020 12:00 AM EDT INTRAORAL - COMPLETE SERIES OF RADIOGRAPHIC IMAGES Routine 09/11/2009 12:00 AM EDT from Last 3 Months or Most Recently Relevant to Health Maintenance Results * (ABNORMAL) POCT Hgb A1c (01/05/2025 11:18 AM EDT) Hemoglobin A1C 6.1(A) 4.0 - 5.7 % QC Media Lot # [id number] Lot# Expiration Date Blood 01/05/2025 11:1 8 AM EDT Marga Snider MD POINT OF CARE TEST ENTER/E DIT ORDERABLES Final Result * POCT Glucose (01/05/2025 11:17 AM EDT) Glucose Blood, POC 124 60 - 200 mg/dL QC Media Lot # [id number] Lot# Expiration Date Blood Capillary blood specimen / Unknown 01/05/2025 11:17 AM EDT Marga Snider MD POINT OF CARE TEST ENTER/E DIT ORDERABLES Final Result * Albumin, Random Urine W/Creatinine (10/01/2024 8:41 AM EDT) Creatinine, Urine 502.81 mg/dL [facility] Microalbumin Urine 73.0 mg/L [facility] Microalbum Creatinine Ratio Ur 14.5 <30 ug/mg cr [facility] Comment:Albumin/Creatinine R atio Reference Ranges: Normal: < 30 ug/mg creatinine Microalbuminuria: 30 - 300 ug/mg creatinineClinical Albuminuria: > 300 ug/mg creatinine Urine 10/01/2024 8:41 AM EDT 10/01/2024 11:19 AM EDT Marga Snider MD LAB URINE ORDERABLES Final Result [facility] [address] [place] [phone] * (ABNORMAL) Lipid Panel, Standard (10/01/2024 8:41 AM EDT) Triglycerides 92 <150 mg/dL [facility] Comment:Desirable Triglyceri de: less than 150 mg/dLBorderline High Triglyceride 150-199 mg/dLHigh Triglyceride: 200-499 mg/dLVery High Triglyceride: greater than or equal to 5OO mg/dL Cholesterol 83 <200 mg/dL [facility] Comment:Desirable Cholestero l: less than 200 mg/dLBorderline High Cholesterol: 200-239 mg/dLHigh Cholesterol: greater than 239 mg/dL LDL Cholesterol Calculated 28 <100 mg/dL [facility] Comment:Desirable LDL: less than 100 mg/dLNear Optimal/Above Optimal LDL: 110- 129 mg/dLBorderline High LDL: 130-159 mg/dLHigh LDL: 160-189 mg/dLVery High LDL: greater than or equal to 190 mg/dL HDL Cholesterol 37(L) >40 mg/dL [facility] Comment:Desirable HDL: great er than 40 mg/dL Note: This HDL assay may give artificially low results in patients with liver disease. Blood Venous blood specimen / Unknown 10/01/2024 8:41 AM EDT 10/01/2024 10:59 AM EDT us Marga Snider MD LAB BLOOD ORDERABLES Final Result [facility] [address] [place] [phone] * Hepatitis C Antibody with Reflex to HCV, RNA, Quantitative, Real-Time PCR (07/17/2022 8:06 AM EDT) Hepatitis C Antibody NON-REACT VIRGIL NON-REACT VIRGIL [facility] [place] [facility] Index 0.02 <1.00 [facility] [place] [facility] Comment: HCV antibody was non-reactive. There is no laboratory evidence of HCV infection. In most cases, no further action is required. However, if recent HCV exposure is suspected, a test for HCV RNA (test code 33034) is suggested. For additional information please refer to http://education.Lockbox/faq/OHB31h2 (This link is being provided for informational/ educational purposes only.) Blood Venous blood specimen / Unknown 07/17/2022 8:06 AM EDT 07/17/2022 8:06 AM EDT Narrative [facility] - 07/17/2022 10:26 PM EDT FASTING:YES FASTING: YES Marga Snider MD LAB BLOOD ORDERABLES Final Result [facility] [address], [place] [address] [facility] [address] [place] [address] * Colonoscopy (12/31/2021) Colonoscopy Tubular adenoma with Dr. Packer Historical Provider HEALTH MAINTENANCE Final Result from Last 3 Months or Most Recently Relevant to Health Maintenance Insurance AETNA MEDICARE REPLACEMENT [facility] STANDARD DENTAL - HSN FULL (MEDICAID) DENTAL - AETNA DENTAL PPO Advance Directives Documents on File Type Date Recorded Patient Cotton Tipper Expl anation Advance Directives and Living Will 02/26/2024 Health Care Proxy 02/26/24 Care Teams Microsoft Exchange Administrator Relationship Specialty Start Date End Date Agatha, MD Marga [address] [place] [address] PCP - General Family Medicine 12/11/16 Matty Robertson MD [address] [place], [place] Cardiology 03/23/24 Merlyn Packer [address] 3rd [place] [address] Gastroenterology 06/08/24 Parth Haas [address] [address] Urology 06/08/24
--- OUTSIDE RECORDS SUMMARY | 2025-01-21 14:11 | XMS_ITS | Encounter Summary ---
Author Organization [employer] Address 75 [facility] 7t [place] [address] Care Team Providers Care Security Rep Name Role Phone Marga Snider MD Primary Care Provider [phone] Madelyn Berry PharmD Unavailable Matty Robertson MD Unavailable [phone] Merlyn Packer Unavailable Parth Haas Unavailable Encounter Details Date Type Department Care Team (Late st Contact Info) Description 02/03/2023 Abstract [facility] 230 [place], [place] [phone] Marga Snider MD 230 [place], [place] [phone] Preventative health care Social History Tobacco Use [...] facility documented in this encounter Care Teams Security Rep Relationship Specialty Start Date End Date Marga Snider MD 230 [place] [address] PCP - General Family Medicine 12/11/16 Madelyn Berry, PharmD 230 [place] [address] Pharmacist Internal Medicine 02/27/23 09/16/23 Matty Robertson MD [address] [place] [address] Cardiology 03/23/24 Merlyn Packer 11 [facility] 3rd [place] [address] Gastroenterology 06/08/24 Parth Haas [address] [place] [phone] Urology 06/08/24 documented as of this encounter
--- OUTSIDE RECORDS SUMMARY | 2025-01-21 14:11 | XMS_ITS | Encounter Summary ---
Author Organization [employer] Address [address] [place] [address] 7t [place] [address] Care Team Providers Care Bag Adjuster Name Role Phone Marga Snider MD Primary Care Provider [phone] Madelyn Berry PharmD Unavailable Matty Robertson MD Unavailable [phone] Merlyn Packer Unavailable Parth Haas Unavailable Encounter Details Date Type Department Care Team (Late st Contact Info) Description 05/14/2022 Abstract [facility] MEDICINE 230 [place], [place] [phone] Marga Snider MD [address] [place], [place] [phone] Social History Tobacco Use Types Packs/Day Years [...] on filedocumented in this encounter Care Teams Bag Adjuster Relationship Specialty Start Date End Date Marga Snider MD [address] [place] [address] PCP - General Family Medicine 12/11/16 Madelyn Berry, ChikaD 230 [place] [address] Pharmacist Internal Medicine 02/27/23 09/16/23 Matty Robertson MD [address] [place] [address] Cardiology 03/23/24 Merlyn Packer [address] [place] [address] 3[address] [place] [address] Gastroenterology 06/08/24 Parth Haas 100 [facility] [place] [address] [address] Urology 06/08/24 documented as of this encounter
--- OUTSIDE RECORDS SUMMARY | 2025-01-21 14:11 | XMS_ITS | Encounter Summary ---
Author Organization [employer] Address 75 [facility] 7t [place] [address] Care Team Providers Care Metal Buggy Operator Name Role Phone Marga Snider MD Primary Care Provider Madelyn Berry PharmD Unavailable Matty Robertson MD Unavailable [phone] Merlyn Packer Unavailable Parth Haas Unavailable Reason for Visit * Reason Onset Date Comments Appointment Request 06/30/2023 Encounter Details Date Type Department Care Team (Late st Contact Info) Description 06/30/2023 Telephone [facility] 230 [place], [place] [phone] Marga Snider MD [address] [place], [place] [phone] Appointment Request Social History Tobacco Use Types [...] the past 12 months, has t he [employer], gas, oil or water company threatened to [...] patient calling to cancel PE appt for 3 due to not feeling well and would like to reschedule junior technical writer did triage the patient documented in this encounter Plan of Treatment Not on file documented as of this encounter Goals Goal Patient Goal Type Associated Problems Recent Progress Patient-Stated? Author Blood Pressure < 140/90 Blood Pressure 130/80( 025 11:14 AM EDT) No Madelyn Mcleod, PharmD documented as of this encounter Visit Diagnoses Not on filedocumented in this encounter Additional Health Concerns Assessment Noted Time PHQ-9 Depression Total Score: 15 024 3:23 PM EST documented as of this encounter Care Teams Metal Buggy Operator Relationship Specialty Start Date End Date Marga Snider MD 230 [place] [address] PCP - General Family Medicine 12/11/16 Madelyn Berry, PharmD [address] [place] [address] Pharmacist Internal Medicine 02/27/23 09/16/23 Matty Robertson MD [address] [place] [address] Cardiology 03/23/24 Merlyn Packer [address] [place] [address] 3rd [place] [address] Gastroenterology 06/08/24 Parth Haas 100 [facility] [place] [address] [phone] Urology 06/08/24 documented as of this encounter
== END 2025-01-21 13:57 | disposition home or self-care (01) ==
PROVIDERS: PCP Family Medicine; Visit Provider Nurse Practitioner Family
DX: M47.815 Spondylosis without myelopathy or radiculopathy, thoracolumbar region (principal); M54.50 Low back pain, unspecified; G89.29 Other chronic pain
CPT/HCPCS: 99204

== ENCOUNTER → 2025-01-21 12:45 | Outpatient (BNVA) | payer MEDICARE, MEDICAID, SELFPAY | PROVIDERS: PCP Family Medicine; Visit Provider Nurse Practitioner Family | DX: M47.815 Spondylosis without myelopathy or radiculopathy, thoracolumbar region (principal); M54.50 Low back pain, unspecified; G89.29 Other chronic pain | CPT/HCPCS: 99202 ==

== ENCOUNTER 2025-03-21 08:42 | Outpatient (RCR) | payer MEDICARE, MEDICAID, SELFPAY ==
--- NOTE | 2025-02-24 08:25 | MHC.PT.EP ---
[facility] [place] Office [place] [facility] [place] [facility] [address] Jacob Rocha [address] [phone] F: [phone] F: [phone] F: [phone] F: [phone] Physical Therapy Plan of Care Date of Evaluation: 02/21/25 Date of Surgery: n/a Diagnosis: Spondylosis without myelopathy or radiculopathy, thoracolumbar region Low back pain, unspecified Other chronic pain Assessment: Pt is a pleasant and motivated 75yo M who presents to PT with chronic low back pain. Pt presents to PT with current impairments in pain, decreased ROM, decreased strength, decreased core stabilization, soft tissue restrictions, impaired posture, and impaired gait. He is limited functionally by prolonged sitting, squatting, prolonged standing, prolonged walking, lifting, and carrying groceries. He is a good candidate for skilled PT in order to address current impairments to facilitate return to PLOF. He is recommended to be seen 2x/week for 4 weeks and will be reassessed Frequency and Duration: The patient will be seen 2x/week for 4 weeks Short Term Goals: Pt will be I with HEP to promote self management of symptoms Pt will improve B hip ABD strength to 4+/5 B Mcfp Goals: Pt will tolerate prolonged standing and walking > 20 minutes with improved gait mechanics and pain < 3/10 Pt will demonstrate ability to squat and pickling operator object from the floor with proper mechanics and minimal to no discomfort Pt will demonstrate improvements in function as evidenced by statistically significant improvement in Modified Oswestry Low Back Pain Disability Index Questionnaire Treatment Plan: Modalities to reduce pain, spasms and effusion. Manual therapy to restore motion and function. Therapeutic exercise to improve strength and flexibility. Neuromuscular re-education for posture and balance. Therapeutic activities to return to functional activities of daily living. Electronically signed by: Please sign and return to therapist. Thank you for your referral.
--- NOTE | 2025-03-22 12:17 | MHC.PT.DC ---
[facility] [place] Office [place] Office [place] Office [address] Jacob Rocha [address] [phone] F: [phone] F: [phone] F: [phone] F: [phone] Physical Therapy Discharge Report Diagnosis: Spondylosis without myelopathy or radiculopathy, thoracolumbar region Low back pain, unspecified Other chronic pain Date of Surgery: n/a Date of Evaluation: 02/21/25 Date of Discharge: 03/22/25 Treatments to Date: 8 Cancellations to Date: No Shows to Date: Discharge Status: Improved Function Independent with HEP Discharge Summary: Pt has made good progress since SOC. He has met his STGs and made progress toward his LTGs. He has had a decrease in pain. He is independent with HEP. He reports he feels ready to D/C to HEP. He is being D/C to HEP at this time Electronically signed by: Betzaida Garvey, PT, DPT Please sign and return to therapist. Thank you for your referral.
== END 2025-03-22 12:17 | disposition home or self-care (01) ==
LOC: HO.PT 08:42
PROVIDERS: PCP Family Medicine; Visit Provider Nurse Practitioner Family
DX: M47.815 Spondylosis without myelopathy or radiculopathy, thoracolumbar region (principal); M54.50 Low back pain, unspecified; G89.29 Other chronic pain
CPT/HCPCS: 97110; 97140; 97162; 97530

== ENCOUNTER 2025-03-23 09:32 | Outpatient (AMB) | payer MEDICARE, MEDICAID, SELFPAY ==
--- NOTE | 2025-03-23 09:33 | MHC.OFFVIS ---
Vital Signs 03/23/25 09:42 Height 5 ft 7 in Weight 166 lb BMI 26.0 BP 142/82 H Blood Pressure Location Rt brachial Position Sitting Pulse 94 Pulse Source Pulse Oximeter Pulse Oximetry (%) 96 Oxygen Delivery Method Room Air Intake Visit Reasons: f/u constipation r/s 03/22 Intake Note: Est pt for mgmt of IBS-C. Discuss recent exacerbation + meds. CC; C/O constipation persistence and additional concerns that he would like to discuss with the provider. Pt presented as apprehensive and did not want to divulge much information to the [place]. Pt prefers to speak directly to the provider. Vmware Administrator Required: Yes Vmware Administrator Services: Vmware Administrator Present Vmware Administrator Name: Hardeep [id number] + [facility] Information Interpreted: clinical only Accompanied by: Self / Same As Patient Allergies No Known Allergies (No Known Allergies*) Allergy (Verified 03/23/25 09:33) HPI HPI f/u constipation r/s 03/22: Details: LAST VISIT Chronic idiopathic constipation Plan Patient will continue taking Linzess. Increase fluid intake and activity to promote better bowel motility. Patient can add stool softener. Follow-up in 4 months, sooner on as needed basis. He is agreeable to this plan and verbalizes understanding of instructions. He was given the opportunity to ask questions and all questions answered. ? Thank you for allowing me to participate in his care New docusate sodium 100 mg PO BEDTIME 90 caps 3RF K59.00 Refilled linaclotide 290 mcg PO DAILY 90 caps 2RF TODAY'S VISIT Patient is here today for follow-up. Patient reports that he takes Linzess 1st thing in the morning and stool softener in the evening. Patient states that he is not having as good result as he would want with both of those medications. He continues to be constipated. He might have 1 good bowel movement a week otherwise he is still struggling. Patient reports that he most of the time passes gas and then has to strain in order to have a bowel movement. Patient reports that he is drinking plenty fluids and eats more vegetables. Patient denies dyspepsia, dysphagia odynophagia. Patient denies melena, hematochezia, unintentional weight loss or ribbon like stools. [facility] Medical History Type 2 diabetes mellitus Chronic midline low back pain with bilateral sciatica Anxiety Chronic idiopathic constipation Tubular adenoma HTN (hypertension) Surgical History History of prostate surgery Hx of colonoscopy Family History Father Alzheimer disease Mother Thyroid disease Social History Household Members: Spouse Alcohol intake: never Patient Tobacco Use Status: Never used Tobacco Review of Systems Const Denies weight gain and Denies weight loss ENT Reports no additional complaints, Denies dysphagia and Denies odynophagia Card Reports no additional complaints Resp Reports no additional complaints GI Denies abdominal pain, Denies belching, Denies melena, Denies bloating, Denies change in bowel habits, Reports constipation (Occasional), Denies dysphagia, Denies excessive flatus, Denies dyspepsia, Denies heartburn, Denies diarrhea, Denies loose stools, Denies nausea, Denies odynophagia and Denies vomiting Reports no additional complaints Musc Reports no additional complaints Neuro Reports no additional complaints Psych Reports no additional complaints Endo Reports no additional complaints Physical Exam Vital Signs: Last Vital Signs Pulse 94 03/23/25 09:42 BP 142/82 H 03/23/25 09:42 Pulse Ox 96 03/23/25 09:42 Oxygen Delivery Method Room Air 03/23/25 09:42 BMI result Body Mass Index 26.0 Const General: healthy appearing, no acute distress and well developed Nutritional Appearance: well nourished Orientation/consciousness: patient oriented x3 Resp Effort & Inspection: normal respiratory effort, able to speak in complete sentences, no tracheal deviation and symmetric chest movement Auscultation: clear to auscultation bilaterally Cardio Rate: regular rate GI Inspection: Yes normal to inspection and No distended Palpation (GI): Soft to palpation, not firm, nontender and No hepatosplenomegaly present Auscultation: normal bowel sounds General: Yes no CVA tenderness Back/Spine/Pelvis Back: no CVA tenderness Skin General skin exam: elasticity normal, turgor normal and dry skin Neuro General: patient oriented x3 Psych Appearance: grossly normal Mental Status: mental status grossly normal Assessment & Plan Assessment & Plan (1) Chronic idiopathic constipation: Code(s): K59.04 - Chronic idiopathic constipation Category: Medical (2) Abdominal bloating: Code(s): R14.0 - Abdominal distension (gaseous) Plan Patient will stop Linzess and will start taking Dulcolax and stool softener in the evening. Patient was encouraged to increase fluid intake and activity to promote bowel motility. Patient will follow-up in 2-3 months. He is agreeable to this plan and verbalizes understanding of instructions. He was given the opportunity to ask questions and all questions answered. Thank you for allowing me to participate in his care Medications: New bisacodyl (Dulcolax (bisacodyl)) 10 mg (2 x 5 mg) PO BEDTIME 180 tabs 4RF Refilled linaclotide 290 mcg PO DAILY 90 caps 2RF Coding Level of Care Code Est Pt Level 3 (87748) Diagnoses Chronic idiopathic constipation K59.04 Abdominal bloating R14.0 Time Spent (min) 25 Comment 15 minutes spent with patient and additional 10 minutes spent reviewing his records
[2025-03-23 09:42] VITALS: BP 142/82; PULSE 94; O2SAT 96; BMI 26.0
--- OUTSIDE RECORDS SUMMARY | 2025-03-23 10:45 | XMS_ITS | Encounter Summary ---
Author Organization [employer] Address 75 [facility] 7t [place] [address] Care Team Providers Care Cisco Network Engineer Name Role Phone Marga Snider MD Primary Care Provider [phone] Madelyn Berry PharmD Unavailable [phone] Matty Robertson MD Unavailable Merlyn Packer Unavailable Parth Haas Unavailable Magdalena Gonzalez Unavailable Reason for Visit * Reason Onset Date Comments Appointment Request 06/30/2023 Encounter Details Date Type Department Care Team (Late st Contact Info) Description 06/30/2023 Telephone [facility] 230 [place], [place] [phone] Marga Snider MD 230 [place], [place] [phone] Appointment Request Social History Tobacco Use Types [...] the past 12 months, has t he [employer], gas, oil or water company threatened to [...] feeling well and would like to reschedule development writer did triage the patient documented in this encounter Plan of Treatment Not on file documented as of this encounter Goals Goal Patient Goal Type Associated Problems Recent Progress Patient-Stated? Author Blood Pressure < 140/90 Blood Pressure 130/80( 025 11:14 AM EDT) No Piers-Gambl e, Madelyn, PharmD documented as of this encounter Visit Diagnoses Not on filedocumented in this encounter Additional Health Concerns Assessment Noted Time PHQ-9 Depression Total Score: 15 024 3:23 PM EST documented as of this encounter Care Teams Cisco Network Engineer Relationship Specialty Start Date End Date Marga Snider MD [address] [place] [address] PCP - General Family Medicine 12/11/16 Madelyn Berry PharmD [address] [place] [address] Pharmacist Internal Medicine 02/27/23 09/16/23 Matty Robertson MD [address] [place] [address] Cardiology 03/23/24 Merlyn Packer [address] 3rd [place] [address] Gastroenterology 06/08/24 Parth Haas [address] [address] Urology 06/08/24 Magdalena Gonzalez [address] [place] [address] Pain Medicine 01/24/25 documented as of this encounter
--- OUTSIDE RECORDS SUMMARY | 2025-03-23 10:45 | XMS_ITS ---
Author Organization [facility] Address [address] [place] [phone] Phone Care Team Providers Care Volcanologist Name Role Phone Marga Snider MD Primary Care Provider [phone] Active Problems Problem Noted Date Diagnosed Date Hypertension 08/19/2024 Stress incontinence 08/19/2024 Prostate cancer (CMS/HCC V24, CMS/HCC V28) 08/19 Current Treatment and Therapy Plans No current plan information found. Past Treatment and Therapy Plans No past plan information found. Current Radiation Episodes * Radiation Therapy: ProstateOverview* First Treatment Date Latest Treatment Date Treatment Site Technique Goal Episode Provider 09/15/2024 11/02/2024 Prostate Curative * Linked Problems Treatment Courses* Course 1 09/15/2024 - 11/02/2024 Treatment Sites Treatment Period Fraction Dose Fractions Total Dose prostate bed 09/15/2024 - 11/02/2024 200 / 200 cGy 33 / 33 6,600 / 6,600 cGy
--- OUTSIDE RECORDS SUMMARY | 2025-03-23 10:45 | XMS_ITS | Clinical Summary ---
Author Organization [facility] Address [address] [place] [phone] Phone Care Team Providers Care Scada Technician Name Role Phone Marga Snider MD Primary Care Provider [phone] Allergies No known active allergies Medications aspirin [...] Stress incontinence 08/19/2024 Prostate cancer (CMS/HCC V24, CMS/[facility] V28) 08/19 Family History Medical History Relation Name Comments [...] Sign Reading Time Taken Comments Blood Pressure 130/67 12/10/2024 1:25 PM EDT Pulse 71 12/10/2024 1:25 PM EDT Temperature 36.4 C (97.6 F) 12/10/2024 1:25 PM EDT Respiratory Rate - - Oxygen Saturation 98% 12/10/2024 1:25 PM EDT Inhaled Oxygen Concentration - - Weight 70.8 kg (156 lb) 12/10/2024 1:25 PM EDT Height 170.2 cm (5' 7 ) 08/26/2024 10:38 AM EDT Body Mass Index 24.43 08/26/2024 10:38 AM EDT Plan of Treatment Health Maintenance Due Date Last Done Comments Colorectal Cancer Screening: Colonoscopy 1950 Diabetes: Annual Foot Exam 02/05/1960 Diabetes: Annual Retina Eye Exam 02/05/1960 Depression Screening 04/28/2024 Medicare Annual Wellness Visit 07/29/2024 Social Influencers of Health Screening 07/29/2024 Diabetes: Annual Urine Albumin-Creatinine Ratio (uACR) 10/01/2024 Diabetes: Blood Sugar Control Test (HGBA1C) 07/05/2025 01/05/2025, 10/01/2024, 09/29/2024, Additional history exists COVID-19 Vaccine (9 - Moderna risk season) 2025 02/08/2025, 02/19/2024, 05/16/2023, Additional history exists Falls Risk Assessment 08/26/2025 08/26/2024 Diabetes: Annual [...] 07/10/2022 RSV Immunization Adult Patients Completed 07/07/2023 Influenza Vaccine Completed 02/08/2025, , 02/11/2023, Additional history exists HIB Vaccines Aged Out [...] on patient's age to complete this topic Insurance MEDICAID - [place] Care Teams Scada Technician Relationship Specialty Start Date End Date [place], MD Marga [address] [place] [phone] PCP - General Family Medicine 07/29/24
--- OUTSIDE RECORDS SUMMARY | 2025-03-23 10:45 | XMS_ITS | Clinical Summary ---
Author Organization [employer] Address [address] [facility] 7t [place] [address] Care Team Providers Care Technical Support Consultant Name Role Phone Marga Snider MD Primary Care Provider [phone] Matty Robertson MD Unavailable Merlyn Packer Unavailable Parth Haas Unavailable Magdalena Gonzalez Unavailable Allergies No known active allergies Medications [...] complication, without long-term current use of insulin (HCC) Use to test blood sugar 1 times daily 100 each 11 5 09/30/19 26 Active Lancets miscIndications:T ype 2 diabetes mellitus without complication, without long-term current use of insulin (HCC) Use to test blood sugar 1 times daily 100 each 11 5 Active Alcohol Swabs 70 % padsIndications:T ype 2 diabetes mellitus without complication, without long-term current use of insulin (HCC) Use to test blood sugar 1 times daily 100 each 5 Active Blood Glucose Monitoring Suppl (OptarosStyle [place] Lite) w/Device kitIndications:Ty pe 2 diabetes mellitus without complication, without long-term current use of insulin (HCC) Use to test blood sugar 1 times daily 1 kit 5 Active fluticasone (Flonase) 50 MCG/ACT nasal sprayIndications: Allergic rhinitis, unspecified seasonality, unspecified trigger INSTILL 1 SPRAY IN EACH NOSTRIL ONCE DAILY 16 g 2 5 Active metFORMIN XR (Glucophage-XR) 500 MG 24 hr tabletIndications :Type 2 diabetes mellitus without complication, without long-term current use of insulin (HCC) TAKE 1 TABLET BY MOUTH EVERY DAY. DO NOT BREAK, CRUSH, DISSOLVE OR CHEW. 5 Active Active Problems Patient Care Coordination No te Formatting of this note migh t be different from the original. Enrolled in [facility] HTN clinic with Chika HeinD, 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 Diagnosed 09/29/24 with A1c 6.5% Lab Results Component Value Date HGBA1C 6.1 (A) 01/05/2025 HGBA1C 6.2 (H) 10/01/2024 HGBA1C 6.5 (A) 09/29/2024 Lab Results Component Value Date CREATININE 0.73 10/01/2024 EGFR >60 10/01/2024 MICROALBCREU 14.5 10/01/2024 MICROALBCREU 44.0 (H) 03/17/2024 LDLCHOLCAL 28 10/01/2024 -Andrzej/Arb: n/a -Statin therapy: Atorvastatin 40 mg -Diabetic eye exam: 03/10/24 -Diabetic foot exam: -Continue lifestyle modifications -Continue current medications -start metformin ER 500mg 09/29/24 Assessment & Plan (01/05/2025 1:42 PM [...] and Vit D 02/25/24 Microalbuminuria 02/26/2024 Overview (02/08/2025): Lab Results Component Value Date CREATININE 0.73 10/01/2024 EGFR >60 10/01/2024 MICROALBCREU 14.5 10/01/2024 MICROALBCREU 44.0 (H) 03/17/2024 LDLCHOLCAL 28 10/01/2024 -ordered Albumin/Cr 02/25/24 - improved Assessment & [...] due after 09/27/25 -eye care facilitated by [facility] [place] -dental home is [facility] -health care proxy filed 02/25/24 -spirometry 12/15/23 normal FEV1/FVC 0.74 -normal ABIs 12/15/23 left 1.31, right 1.33 Assessment & Plan (09/29/2024 11:18 AM EDT): -next comprehensive annual evaluation due after 09/27/25 -eye care facilitated by [facility] -dental home is [facility] -health care proxy filed 02/25/24 -spirometry 12/15/23 normal FEV1/FVC 0.74 -normal ABIs 12/15/23 left 1.31, right 1.33 Assessment & Plan (02/26/2024 9:48 AM EDT): -next comprehensive annual evaluation due after 07/02/2024 -eye care facilitated by [facility] -dental home is [facility] -health care proxy filed 02/25/24 -spirometry 12/15/23 normal FEV1/FVC 0.74 -normal ABIs 12/15/23 left 1.31, right 1.33 Assessment & Plan (07/03/2023 11:58 AM EST): -next physical exam due after 07/02/2024 -eye care facilitated by [facility] -dental home is [facility] Anxiety 10/23/2022 Assessment & Plan (02/26/2024 1:46 PM EDT): During IBH Consult French presenting with excessive worry/anxiety and anxiety/worry associated to easily fatigued , difficulty concentrating and/or mind going blank , and irritability; for a period of 6-12 mo, for most or all symptoms in the context of unable to identify significant stressors. French reported experiencing anxiety but able to manage symptoms. His strong sense of keisha and community he has found in the anabaptist is main strength. His sense of belonging (God/Oriental Orthodox anabaptist) is main motivation and value. Pt reports [...] 50-55%. -Euvolemic on exam. Moderate episode of recurren t major depressive disorder (CMS/HCC) 06/07/2021 Overview (02/26/2024): - Anxiety is increasing. Denies suicidial or homacidial ideation. - Pt self d/c fluoxetine - Self Discontinued Lexapro in 2022 -pt agrees to therapy, [facility] 02/26/24 Assessment & Plan (09/30/2024 10:02 AM EDT): During IBH Consult French presenting with depressed mood, Tearful, crying spells [...] due to worsening of his medical condition. French also endorsed depressive sxs associated with the loss of his mother. His strong connection with God and high sense of spirituality is main strength. Assessment & Plan (09/29/2024 11:19 AM EDT): - Anxiety is increasing. Denies suicidial or homacidial ideation. - Pt self d/c fluoxetine - Self Discontinued Lexapro in 2022 -pt agrees to therapy, [facility] 01/28 Assessment & Plan (02/26/2024 9:46 AM EDT): - Anxiety is increasing. Denies suicidial or homacidial ideation. - Pt self d/c fluoxetine - Self Discontinued Lexapro in 2022 -pt agrees to therapy, [facility] 02/26/24 Assessment & Plan (07/03/2023 12:09 PM EST): - Doing well. Pt self d/c fluoxetine - Patient declined counseling. - Self Discontinued Lexapro in 2022 Assessment & Plan (05/23/2023 5:09 PM EST): PROGRESS NOTE: ID: French is a 73 y.o. 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 Prior to prostatectomy. 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 -Followed by urology, Forest Haas -PSA 03/2020 undetectable -Urology note from 11/2020 states PSA undetectable, lab result requested 04/05/2021 -s/p LHRH injection 10/16/[address] Adan. -Pt transferred to [facility] urology with Dr. Haas. visit with Dr. 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 Prior to prostatectomy. 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 -Followed by urology, Lawson Haas-C -PSA 03/2020 undetectable -Urology note from 11/2020 states PSA undetectable, lab result requested 04/05/2021 -s/p LHRH injection 10/16/[address] Adan. -Pt transferred to [facility] urology with Dr. Haas. visit with Dr. [...] Prior to prostatectomy. -Biopsy 10/15/18 was adenocarcinoma Waggoner score 8.4 of 12 cores positive for CA. -Followed by urology, Forest Haas -PSA 03/2020 undetectable -Urology note from 11/2020 states PSA undetectable, lab result requested 04/05/2021 -s/p LHRH injection 10/16/[address] Adan. -Pt transferred to [facility] urology with Dr. Haas. visit with Dr. [...] Prior to prostatectomy. -Biopsy 10/15/18 was adenocarcinoma Waggoner score 8.4 of 12 cores positive for CA. -Followed by urology, Forest Haas -PSA 08/2018 6.0 down from 8.0 -PSA 03/2020 undetectable -Urology note from 11/2020 states PSA undetectable, lab result requested 04/05/2021 -s/p LHRH injection 10/16/[address] Adan. -Pt transferred to [facility] urology with Dr. Haas. visit with Dr. [...] 10/16/[address] Adan. -Pt transferred to [facility] urology with Dr. Haas. visit with Dr. [...] 10/16/[address] Adan. -Pt transferred to [facility] urology with Dr. Haas. visit with Dr. [...] back pain 06/07/2021 Overview (10/01/2024): 09/30/24ORDER #: [id number] XR/XR thoracic spine 3V IMPRESSION: 1. No acute findings of the thoracic spine. 2. Mild to moderate degenerative spondylosis with mild right convex scoliosis. 09/30/24ORDER #: [id number] XR/XR lumbar spine 2-3V IMPRESSION: 1. No [...] note continue current medications. Patient followed at [facility] with Dr. Blaine Robertson DO. [...] note continue current medications. Patient followed at [facility] with Dr. Blaine Robertson DO. Note from [...] medications at correct doses. Per Shaylee in [place] office on 07/07/20, patient is to continue HCTZ 25 mg daily and hydralazine 25 mg BID. Patient was contacted, was agreeable and confirmed understanding. Patient followed at [facility] with Dr. Blaine Robertson DO. [...] Encounters Date Type Department Care Team Description 02/08/2025 10:30 AM EDT Immunization [facility] [address] [place] [id number] Jory Marin RN Encounter for immunization; Encounter for vaccination 02/08/2025 Travel 01/05/2025 11:15 AM EDT Office Visit [facility] [address] [place] [phone] Marga Snider MD Type 2 diabetes mellitus without complication, without long-term current use of insulin ([facility]) (Primary Dx); History of prostate cancer; Blood glucose elevated; Chronic midline low back pain with bilateral sciatica 01/05/2025 Travel 01/04/2025 Telephone [facility] [address] [place] [phone] Marga Snider MD chart prep from Last 3 Months Immunizations Immunization Administration Dates Next Due Hep B, adult 03/18/2023,10/16/2022,07/10/2022 INFLUENZA VACCINE QUADRIVALE NT RECOMBINANT PRESERVATIVE FREE RIV4 02/11/2020 Influenza High-dose Quadriva lent Preservative Free 02/11/2023,01/14/2022,02/12/2021 Influenza injectable quadriv alent preservative free 02/09/2015 Influenza, High Dose Seasona l, Preservative Free 02/08/2025,02/19/2024,02/17/2019,2016,02/01/2016 Influenza, IIV3, injectable 02/21/2014 Influenza, trivalent, adjuvanted 02/11/2018 Moderna Covid-19 Vaccine 12+ 09/03/2021, 03/08/2021,07/13/2020,2020 Moderna Covid-19 Vaccine 6+ Bivalent 07/10/2022 Pfizer Covid-19 Vaccine 12+ 02/08/2025,,05/16/2023 Pneumococcal Conjugate PCV 13 04/08/2018 Pneumococcal Conjugate [...] Dental X-Ray: Full Mouth 11/18/2023 11/16/2020, 08/26 Diabetes: Foot Exam 02/25/2025 02/26/2024, 02/26/2024, 02/26/2024 Diabetes: Hemoglobin A1C 07/05/2025 025, 10/01/2024, 09/29/2024, Additional history exists COVID-19 Vaccine (2024- season) 2025 02/08/2025, 02/19/2024, 05/16/2023, Additional history exists Depression Screening 09/29/2025 09/29/2024, 09/30/19 25 SDOH Screening 09/29/2025 09/29/2024 Diabetes: Urine Protein [...] Aged 60 years or older Completed 07/07/2023 Influenza Vaccine Completed 02/08/2025, , [...] Media Lot # [id number] Lot# Expiration Date 162, Blood 01/05/2025 11:1 8 AM EDT Marga Snider MD POINT OF CARE TEST ENTER/E DIT ORDERABLES Final Result * POCT Glucose (01/05/2025 11:17 AM EDT) Glucose Blood, POC 124 60 - 200 mg/dL QC Media Lot # [id number] Lot# Expiration Date 2846,409 Blood Capillary blood specimen / Unknown 01/05/2025 11:17 AM EDT Marga Snider MD POINT OF CARE TEST ENTER/E DIT ORDERABLES Final Result * Albumin, Random Urine W/Creatinine (10/01/2024 8:41 AM EDT) Creatinine, Urine 502.81 mg/dL [facility] Microalbumin Urine 73.0 mg/L [facility] Microalbum Creatinine Ratio Ur 14.5 <30 ug/mg cr [facility] Comment:Albumin/Creatinine R atio Reference Ranges: Normal: < 30 ug/mg creatinine Microalbuminuria: 30 - 300 ug/mg creatinineClinical Albuminuria: > 300 ug/mg creatinine Urine 10/01/2024 8:41 AM EDT 10/01/2024 11:19 AM EDT Marga Snider MD LAB URINE ORDERABLES Final Result Performing Organization Address City/State/[facility] Co de Phone Number [facility] [address] [place] [phone] * (ABNORMAL) Lipid Panel, Standard (10/01/2024 8:41 AM EDT) Triglycerides 92 <150 mg/dL [facility] Comment:Desirable Triglyceri de: less than 150 mg/dLBorderline High Triglyceride 150-199 mg/dLHigh Triglyceride: 200-499 mg/dLVery High Triglyceride: greater than or equal to 5OO mg/dL Cholesterol 83 <200 mg/dL [facility] Comment:Desirable Cholestero l: less than 200 mg/dLBorderline High Cholesterol: 200-239 mg/dLHigh Cholesterol: greater than 239 mg/dL LDL Cholesterol Calculated 28 <100 mg/dL [facility] Comment:Desirable LDL: less than 100 mg/dLNear Optimal/Above Optimal LDL: 110- 129 mg/dLBorderline High LDL: 130-159 mg/dLHigh LDL: 160-189 mg/dLVery High LDL: greater than or equal to 190 mg/dL HDL Cholesterol 37(L) >40 mg/dL [facility] Comment:Desirable HDL: great er than 40 mg/dL Note: This HDL assay may give artificially low results in patients with liver disease. Blood Venous blood specimen / Unknown 10/01/2024 8:41 AM EDT 10/01/2024 10:59 AM EDT Marga Snider MD LAB BLOOD ORDERABLES Final Result Performing Organization Address City/[facility]/ZIP Co de Phone Number [facility] [address] [place] [phone] * Hepatitis C Antibody with Reflex to HCV, RNA, Quantitative, Real-Time PCR (07/17/2022 8:06 AM EDT) Hepatitis C Antibody NON-REACT VIRGIL NON-REACT VIRGIL eyesFinder Index 0.02 <1.00 eyesFinder Comment: HCV antibody was non-reactive. There is no laboratory evidence of HCV infection. In most cases, no further action is required. However, if recent HCV exposure is suspected, a test for HCV RNA (test code 92240) is suggested. For additional information please refer to http://education.[facility]/faq/UBX89v8 (This link is being provided for informational/ educational purposes only.) Blood Venous blood specimen / Unknown 07/17/2022 8:06 AM EDT 07/17/2022 8:06 AM EDT Narrative [facility] - 07/17/2022 10:26 PM EDT FASTING:YES FASTING: YES Marga Snider MD LAB BLOOD ORDERABLES Final Result Performing Organization Address City/[facility]/ZIP Co de Phone Number [facility] [address], [place] [address] [employer] [place] [facility] [address] [place] [address] * Hm Colonoscopy (12/31/2021) Colonoscopy Tubular adenoma with Dr. Packer Rupa Akins MD HEALTH MAINTENANCE Final Result from Last 3 Months or Most Recently Relevant to Health Maintenance Insurance AETNA MEDICARE REPLACEMENT [facility] STANDARD DENTAL - HSN FULL (MEDICAID) DENTAL - AETNA DENTAL PPO Advance Directives Documents on File Type Date Recorded Patient Pelts Skinner Expl anation Advance Directives and Living Will 02/26/2024 Health Care Proxy 02/26/24 Care Teams Technical Support Consultant Relationship Specialty Start Date End Date [place], MD Marga [address] [place] [phone] PCP - General Family Medicine 12/11/16 Matty Robertson MD [address] [place] [address] Cardiology 03/23/24 Merlyn Packer [address] 3rd [place] [address] Gastroenterology 06/08/24 Parth Haas 100 [facility] [address] [place] [address] Urology 06/08/24 Magdalena Gonzalez [address] [place] [address] Pain Medicine 01/24/25
--- OUTSIDE RECORDS SUMMARY | 2025-03-23 10:45 | XMS_ITS | Encounter Summary ---
Author Organization [employer] Address [address] [place] [address] 7t [place] [address] Care Team Providers Care Furniture Detailer Name Role Phone Marga Snider MD Primary Care Provider [phone] Madelyn Berry PharmD Unavailable Matty Robertson MD Unavailable [phone] Merlyn Packer Unavailable Parth Haas Unavailable Magdalena Gonzalez Unavailable Encounter Details Date Type Department Care Team (Late st Contact Info) Description 05/14/2022 Abstract [facility] [address] [place], [place] [phone] Marga Snider MD [address] [place], [place] [phone] Social History Tobacco Use Types Packs/Day Years [...] Procedure Name Priority Date/Time Associated Diagnosis Comments HM COLONOSCOPY Routine 12/31/2021 documented in this encounter Results * Hm Colonoscopy (12/31/2021) Colonoscopy Tubular adenoma with Dr. Packer us Historical Provider HEALTH MAINTENANCE Final Result documented in this encounter Visit Diagnoses Not on filedocumented in this encounter Care Teams Furniture Detailer Relationship Specialty Start Date End Date Marga Snider MD [address] [place] [address] PCP - General Family Medicine 12/11/16 Madelyn Berry PharmD [address] [place] [address] Pharmacist Internal Medicine 02/27/23 09/16/23 Matty Robertson MD [address] [place] [address] Cardiology 03/23/24 Merlyn Packer [address] 3rd [place] [address] Gastroenterology 06/08/24 Parth Haas 100 [facility] 120 [place] [address] Urology 06/08/24 Magdalena Gonzalez [address] [place] [address] Pain Medicine 01/24/25 documented as of this encounter
--- OUTSIDE RECORDS SUMMARY | 2025-03-23 10:45 | XMS_ITS | Encounter Summary ---
Author Organization [employer] Address [address] [facility] 7t [place] [address] Care Team Providers Care Bible Worker Name Role Phone Marga Snider MD Primary Care Provider [phone] Madelyn Berry PharmD Unavailable Matty Robertson MD Unavailable [phone] Merlyn Packer Unavailable Parth Haas Unavailable Magdalena Gonzalez Unavailable Reason for Visit * Reason Onset Date Comments Nurse Triage 05/23/2023 Encounter Details Date Type Department Care Team (Late st Contact Info) Description 05/23/2023 Telephone [facility] [address] [place], [place] [phone] Marga Snider MD [address] [place], [place] [phone] Nurse Triage Social History Tobacco Use Types [...] the past 12 months, has t he [employer], gas, oil or water [employer] threatened to shut off services in your [...] 4 04/29 3:23 PM Mikael Osborne * How difficult have these problems made it for you to do your work, take care of things at home, or get along with other people? Answer Date of Assessment Author Very difficult 05/23/2023 3:23 PM Sue Osborne * Over the last 2 weeks, [...] much Nearly every day 05/23/2023 3:23 PM Mikael Osborne Feeling tired or having little energy [...] 05/23/2023 1:05 PM EST Called pt. Via [employer] ela teacher [phone] Deepika. Pt. States that he has been [...] denies suicidal thoughts. Pt. Wants someone from [facility] to reach out so that he [...] been evaluated for this by doctor (or CARPENTER INSPECTOR/PA) * Panic attacks are increasing in frequency [...] The caller accepted this outcome Patient speaks cook islander documented in this encounter Plan of Treatment [...] documented as of this encounter Care Teams Bible Worker Relationship Specialty Start Date End Date Marga Snider MD [address] [place] [address] PCP - General Family Medicine 12/11/16 Madelyn Berry, PharmD [address] [place] [address] Pharmacist Internal Medicine 02/27/23 09/16/23 Matty Robertson MD [address] [place] [address] Cardiology 03/23/24 Merlyn Packer [address]rd [place] [address] Gastroenterology 06/08/24 Parth Haas [address] [address] Urology 06/08/24 Magdalena Gonzalez [address] [place] [address] Pain Medicine 01/24/25 documented as of this encounter
--- OUTSIDE RECORDS SUMMARY | 2025-03-23 10:45 | XMS_ITS | Encounter Summary ---
Author Organization [employer] Address [address] [facility] 7t [place] [address] Care Team Providers Care Wheel Truer Name Role Phone Marga Snider MD Primary Care Provider [phone] Madelyn Berry PharmD Unavailable Matty Robertson MD Unavailable Merlyn Packer Unavailable Parth Haas Unavailable Magdalena Gonzalez Unavailable Encounter Details Date Type Department Care Team (Late st Contact Info) Description 02/03/2023 Abstract [facility] [address] [place], [place] [phone] Marga Snider MD [address] [place], [place] [phone] Preventative health care Social History Tobacco Use [...] facility documented in this encounter Care Teams Wheel Truer Relationship Specialty Start Date End Date Marga Snider MD [address] [place] [address] PCP - General Family Medicine 12/11/16 Madelyn Berry, PharmD [address] [place] [address] Pharmacist Internal Medicine 02/27/23 09/16/23 Matty Robertson MD [address] [place] [address] Cardiology 03/23/24 Merlyn Packer [address] 3rd [place] [address] Gastroenterology 06/08/24 Parth Haas 100 [facility] 120 [place] [address] Urology 06/08/24 Magdalena Gonzalez [address] [place] [address] Pain Medicine 01/24/25 documented as of this encounter
== END 2025-03-23 10:07 | disposition home or self-care (01) ==
LOC: HO.HGI 09:32
PROVIDERS: PCP Family Medicine; Visit Provider Nurse Practitioner Family
DX: K59.04 Chronic idiopathic constipation (principal); R14.0 Abdominal distension (gaseous)
CPT/HCPCS: 99213

== ENCOUNTER → 2025-03-23 09:32 | Outpatient (BNVA) | payer MEDICARE, MEDICAID, SELFPAY | PROVIDERS: PCP Family Medicine; Visit Provider Nurse Practitioner Family | DX: K59.04 Chronic idiopathic constipation (principal); R14.0 Abdominal distension (gaseous) | CPT/HCPCS: 99212 ==